=== PATIENT | male | born 1945 | race Caucasian/White ===

== ENCOUNTER 2023-11-29 22:11 | Inpatient (IN) | payer OTHER, SELFPAY ==
[2023-11-29] VITALS (8 sets, daily range): BP systolic 104–150; BP diastolic 45–75; BMI 27.2
[2023-11-29 18:21] LABS: % Basophils 0.4 % (0-2); % Eosinophils 1.8 % (0-6); % Immature Granulocytes 1.5 % (0-0.5); % Lymphocytes 12.2 % (20.5-51.1); % Monocytes 6.9 % (1.7-9.3); % Neutrophils 77.2 % (42.2-75.2); Absolute Basophils 0.1 10^3/uL (0-0.2); Absolute Eosinophils 0.2 10^3/uL (0-0.7); Absolute Immature Granulocytes 0.2 10^3/uL (0-0.05); Absolute Lymphocytes 1.4 10^3/uL (1.2-3.4); Absolute Monocytes 0.8 10^3/uL (0.1-0.6); Absolute Neutrophils 8.7 10^3/uL (1.4-6.5); Hematocrit 29.5 % (39.0-52.0); Hemoglobin 9.3 g/dL (13.0-18.0); Mean Corp Hgb Conc. 31.5 g/dL (33.0-37.0); Mean Corpuscular Hgb 26.9 pg (27.0-31.0); Mean Corpuscular Volume 85.3 fL (80.0-94.0); Mean Platelet Volume 10.1 fL (7.4-10.4); Nucleated Red Blood Cells % 0 % (-); Platelet Count 292 10^3/uL (130-400); Red Blood Cell Count 3.46 10^6/uL (4.70-6.10); Red Cell Dist. Width 14.6 % (11.5-14.5); White Blood Cell Count 11.3 10^3/uL (4.8-10.8)
--- NOTE | 2023-11-29 18:27 | ED.GENMED ---
History of Present Illness
<MARISOL Johnson - Last Filed: 11/29/23 20:57>
General
Chief Complaint: Breathing Problem
Source: patient
Exam Limitations: none
Time Seen by Provider: 11/29/23 17:54
History of Present Illness
History of Present Illness:
This is a 78 year old male that is brought in by ambulance with c/o SOB. States that today he started to just feel SOB and his felt he needed to be seen. Patient wears oxygen at 2 liters at home but states that sometimes he doesn't wear
it. Told that his pulse ox was low for EMS and they increased his O2 to 4 liters to get pulse ox up to 97%. Patient states that he felt slightly lightheaded. Denies any fever, chills, chest pain, cough, abd pain, nausea, vomiting, diarrhea,
headache, urinary burning.
Past History
<MARISOL Johnson - Last Filed: 11/29/23 20:57>
Past History
ED Past Medical History: COPD (2 liters nasal canula), IDDM, Psychiatric and Other (Ulcerative colitis, cognitive decline (mild dementia), Headaches, PNA, Renal calculus, Essential tremors, Interstitial lung disease)
ED Past Surgical History: Appendectomy, Cholecystectomy, Orthopedic (Right Rotator cuff), Urological (Lithotripsy) and Other (Cataracts)
Social History
Tobacco: Non-smoker
Alcohol: None
Personal:
Living: with family
Family History
Family History: Other (reviewed and noncontributory)
Review of Systems
<MARISOL Johnson - Last Filed: 11/29/23 20:57>
Review of Systems
All Other Systems: ROS reviewed and negative except as documented in HPI and ROS
Constitutional: Reports no symptoms; Denies fever or chills
EENT: Reports no symptoms
Respiratory: Reports trouble breathing; Denies cough
Cardiac: Reports no symptoms; Denies chest pain
ABD/GI: Reports no symptoms; Denies abdominal pain, nausea, vomiting or diarrhea
: Reports no symptoms; Denies dysuria, frequency or urgency
Musculoskeletal: Reports no symptoms
Skin: Reports no symptoms
Neurological: Reports other (Little lightheaded); Denies dizzy or headache
Psychiatric: Reports no symptoms
Phy Exam
<MARISOL Johnson - Last Filed: 11/29/23 20:57>
General Physical Exam
General Presentation: no apparent distress
General age: appears stated age
General Skin: warm and dry
General Habitus: elderly
General Mental: alert
General Hydration: appears well hydrated
ENT Exam
ENT Exam: TM's normal, pharynx normal and neck supple
Eye Exam
Eye Exam: EOMI
Cardiovascular Exam
Cardiovascular Exam: regular rate/rhythm, no edema, normal peripheral pulses and other (Murmur)
Pulmonary Exam
Pulmonary Exam: no respiratory distress, chest non tender, no rhonchi, no wheezing, no cough and other (Fine crackles 1/2 up bilaterally)
Gastrointestinal Exam
Gastrointestinal Exam: normal bowel sounds, non tender, soft, no organomegaly, no pulsatile mass and non distended
Musculoskeletal Exam
Musculoskeletal Exam: full ROM and no edema
Skin Exam
Skin Exam: normal color, warm/dry, no rash and no petechia
Psychiatric Exam
Psychiatric Exam: normal mood/affect
Scores
<MARISOL Johnson - Last Filed: 11/29/23 20:57>
Heart Failure Risk
Heart Failure Risk Score: Yes
History of Stroke or TIA: No
History of intubation for respiratory distress: No
Heart rate on ED arrival >/= 110: No
SaO2 <90% on arrival on room air: Yes
HR >/=110 during 3min walk test (or too ill to perform test): Yes
ECG has acute ischemic changes: No
Urea >/=12mmol/L (BUN 33.6mg/dL): Yes
Serum CO2>/=35mmol/L: No
Troponin I or T elevated to TN Level (0.4mg/dL): Yes
NT-proBNP >/=5,000ng/L (5,000pg/ml): No
HF Risk Score: 6
Admission Status: VERY HIGH RISK 55.3% Consider admission to hospital
<Mal Cid DO - Last Filed: 11/29/23 22:36>
Heart Failure Risk
HF Risk Score: 6
Admission Status: VERY HIGH RISK 55.3% Consider admission to hospital
Course
<MARISOL Johnson - Last Filed: 11/29/23 20:57>
Orders/Labs/Results
Orders:
Orders
11/29/23 17:34
Electrocardiogram (*1) Urgent
Reason for Study: Shortness of Breath
11/29/23 17:35
EKG- Treatment ONCE
11/29/23 17:58
Cardiac Monitoring- Treatment ONCE
IV Insert/Care/Rem.- Treatment PRN
CR Chest - 2 Views Urgent
Comment:
Reason For Exam: Shortness of breath
O2 Therapy [RESP] Urgent
Titrate/Wean O2 to maintain O2 sat greater than (%): 93
Special Instructions: TO MAINTAIN CONTINOUS PULSE OX SATS > OR = 93%
Pulse Ox/spot Check [RESP] Urgent
Quantity: 1
Special Instructions: ON ROOM AIR
11/29/23 18:15
Complete Blood Count/With Diff Urgent
Comprehensive Metabolic Panel Urgent
11/29/23 18:31
NT-proBNP Urgent
Troponin I Urgent
11/29/23 20:50
Furosemide [Lasix] 40 mg IV NOW STA
11/29/23 20:55
EKG- Treatment ONCE
11/29/23 21:20
Urinalysis Reflex To Culture Routine
11/29/23 21:24
Admit/Transfer Patient As Directed
Co-Sign Provider:
Level of Care: Inpatient admission
Assign to:: Telemetry
Physician / Group: irma
Diagnosis: acute on chronic hypoxic respiratory failure
Reason for Telemetry: Subacute Heart Failure
Date to Stop Telemetry: 12/01/23
Time to Stop Telemetry: 11:00
Reason for Hospitalization: acute on hronic respiratory failure
Expected length of stay greater than two midnights?: Yes
ELOS- Estimated Length of Stay in days: 3
I certify the patient meets the requirements for IP care: Yes
11/29/23 21:25
Code Status As Directed
Resuscitation Status: Full Code
11/29/23 21:30
Electrocardiogram (*1) Urgent
Reason for Study: Shortness of Breath
Other Reason for Exam: Repeat with Troponin
11/29/23 21:34
Dexamethasone Sod Phosphate [Decadron] 4 mg IV NOW STA
11/29/23 21:55
Troponin I Urgent
12/01/23 11:00
DC Protocol for Telemetry ONCE
Abnormal Lab Results
11/29/23 11/29/23 11/29/23
18:15 18:31 21:55
WBC 11.3 H 10^3/uL
(4.8-10.8)
RBC 3.46 L 10^6/uL
(4.70-6.10)
Hgb 9.3 L g/dL
(13.0-18.0)
Hct 29.5 L %
(39.0-52.0)
MCH 26.9 L pg
(27.0-31.0)
MCHC 31.5 L g/dL
(33.0-37.0)
RDW 14.6 H %
(11.5-14.5)
Abs Immat Gran (auto) 0.2 H 10^3/uL
(0-0.05)
Absolute Neuts (auto) 8.7 H 10^3/uL
(1.4-6.5)
Absolute Monos (auto) 0.8 H 10^3/uL
(0.1-0.6)
Immature Gran % 1.5 H %
(0-0.5)
Neutrophils % 77.2 H %
(42.2-75.2)
Lymphocytes % 12.2 L %
(20.5-51.1)
Chloride 97 L mmol/L
(98-107)
BUN 35 H mg/dl
(9-20)
Glucose 188 H mg/dl
(70-99)
Troponin I 0.069 H* ng/ml 0.203 H* D ng/ml
11/29/23 18:15
11/29/23 18:15
WBC very slightly elevated. H/H low. chloride low. Glucose nonfasting. Elevated Troponin 0.069, Pro-BNP 410
Vital Signs
Initial and Last Documented VS:
Initial Vital Signs
Pulse Ox
89
11/29/23 17:34
Last Documented Vital Signs
Temp Pulse Resp BP Pulse Ox
99.4 F 86 25 127/52 97
11/29/23 17:42 11/29/23 20:30 11/29/23 20:30 11/29/23 20:00 11/29/23 20:30
<Mal Cid DO - Last Filed: 11/29/23 22:36>
Orders/Labs/Results
Orders:
Orders
11/29/23 17:34
Electrocardiogram (*1) Urgent
Reason for Study: Shortness of Breath
11/29/23 17:35
EKG- Treatment ONCE
11/29/23 17:58
Cardiac Monitoring- Treatment ONCE
IV Insert/Care/Rem.- Treatment PRN
CR Chest - 2 Views Urgent
Comment:
Reason For Exam: Shortness of breath
O2 Therapy [RESP] Urgent
Titrate/Wean O2 to maintain O2 sat greater than (%): 93
Special Instructions: TO MAINTAIN CONTINOUS PULSE OX SATS > OR = 93%
Pulse Ox/spot Check [RESP] Urgent
Quantity: 1
Special Instructions: ON ROOM AIR
11/29/23 18:15
Complete Blood Count/With Diff Urgent
Comprehensive Metabolic Panel Urgent
11/29/23 18:31
NT-proBNP Urgent
Troponin I Urgent
11/29/23 20:50
Furosemide [Lasix] 40 mg IV NOW STA
11/29/23 20:55
EKG- Treatment ONCE
11/29/23 21:20
Urinalysis Reflex To Culture Routine
11/29/23 21:24
Admit/Transfer Patient As Directed
Co-Sign Provider:
Level of Care: Inpatient admission
Assign to:: Telemetry
Physician / Group: irma
Diagnosis: acute on chronic hypoxic respiratory failure
Reason for Telemetry: Subacute Heart Failure
Date to Stop Telemetry: 12/01/23
Time to Stop Telemetry: 11:00
Reason for Hospitalization: acute on hronic respiratory failure
Expected length of stay greater than two midnights?: Yes
ELOS- Estimated Length of Stay in days: 3
I certify the patient meets the requirements for IP care: Yes
11/29/23 21:25
Code Status As Directed
Resuscitation Status: Full Code
11/29/23 21:30
Electrocardiogram (*1) Urgent
Reason for Study: Shortness of Breath
Other Reason for Exam: Repeat with Troponin
11/29/23 21:34
Dexamethasone Sod Phosphate [Decadron] 4 mg IV NOW STA
11/29/23 21:55
Troponin I Urgent
12/01/23 11:00
DC Protocol for Telemetry ONCE
Abnormal Lab Results
11/29/23 11/29/23 11/29/23
18:15 18:31 21:55
WBC 11.3 H 10^3/uL
(4.8-10.8)
RBC 3.46 L 10^6/uL
(4.70-6.10)
Hgb 9.3 L g/dL
(13.0-18.0)
Hct 29.5 L %
(39.0-52.0)
MCH 26.9 L pg
(27.0-31.0)
MCHC 31.5 L g/dL
(33.0-37.0)
RDW 14.6 H %
(11.5-14.5)
Abs Immat Gran (auto) 0.2 H 10^3/uL
(0-0.05)
Absolute Neuts (auto) 8.7 H 10^3/uL
(1.4-6.5)
Absolute Monos (auto) 0.8 H 10^3/uL
(0.1-0.6)
Immature Gran % 1.5 H %
(0-0.5)
Neutrophils % 77.2 H %
(42.2-75.2)
Lymphocytes % 12.2 L %
(20.5-51.1)
Chloride 97 L mmol/L
(98-107)
BUN 35 H mg/dl
(9-20)
Glucose 188 H mg/dl
(70-99)
Troponin I 0.069 H* ng/ml 0.203 H* D ng/ml
11/29/23 18:15
11/29/23 18:15
Vital Signs
Initial and Last Documented VS:
Initial Vital Signs
Pulse Ox
89
11/29/23 17:34
Last Documented Vital Signs
Temp Pulse Resp BP Pulse Ox
99.4 F 86 25 127/52 97
11/29/23 17:42 11/29/23 20:30 11/29/23 20:30 11/29/23 20:00 11/29/23 20:30
<MARISOL Johnson - Last Filed: 11/29/23 20:57>
MDM/Problems Addressed
Differential Diagnosis Includes:
CHF, PNA,
MDM/Problems Addressed:
This is a 78 year old male that comes in with c/o SOB. States that this started today and he was a little lightheaded.
Will check labs, Chest x-ray.
Back into see patient and . Explained that he has CHF and will be admitted. IV Lasix ordered. Hospitalist notified.
Chronic conditions affecting care: COPD
Acute Exacerbation and/or Progression of Chronic Illness: COPD
<MARISOL Johnson - Last Filed: 11/29/23 20:57>
*Radiology
Radiology exam reviewed: radiology read reviewed (Chest-Mild CHF)
*Pulse Oximetry
Patient hypoxic: yes
*EKG
Interpreted by ED Provider?: Yes
Heart Rate: 91
Rate: normal
Rhythm: sinus
Jackson: left axis deviation
Interval: normal interval
QRS Pattern: normal QRS
Ischemia: non-specific ST changes (aVL, V4, V5 ,)
*System Support Technician Interpretation
Rate: normal
Heart Rate: 92
Rhythm: sinus
*Critical Care Note
Total Time (30-74mins, 75-104mins- exclusive of procedures): Not Applicable
ED Attending Note
<MARISOL Johnson - Last Filed: 11/29/23 20:57>
-
Portions of this chart may have been created with voice recognition software.� Occasional wrong word or��sound alike� substitutions may have occurred due to the inherent limitations of voice recognition software.
Discharge Plan
Departure
Patient Disposition: Admit
Date of Disposition: 11/29/23
Time of Disposition: 20:55
Admit to: Telemetry
Presentation/result/management discussed w/ accepting MD/DO: Hospitalist
Patient with high blood pressure during this ER visit?: Yes
Condition: Good
Covid-19: Not Applicable
Discharge Problem:
SOB (shortness of breath), CHF (congestive heart failure)
Interventions
Interventions:
*Risk Screen - Suicide Last Done: 11/29/23 17:43
*General Assessment Last Done: 11/29/23 17:43
*Neglect/Abuse Screening Last Done: 11/29/23 17:44
*ED COVID-19 Vaccine History Last Done: 11/29/23 17:43
ED- Cardiac Assessment Last Done: 11/29/23 17:44
ED- Pulmonary Assessment Last Done: 11/29/23 17:43
[2023-11-29 18:40] LABS: ALT (SGPT) 15 U/L (0-50); AST (SGOT) 24 U/L (17-59); Albumin 3.7 g/dl (3.5-5.0); Alkaline Phosphatase 87 U/L (38-126); Blood Urea Nitrogen 35 mg/dl (9-20); Calcium 9.5 mg/dl (8.4-10.2); Carbon Dioxide 28 mmol/L (22-30); Chloride 97 mmol/L (98-107); Estimated Creatinine Clearance 47 ml/min; Glucose 188 mg/dl (70-99); Potassium 4.7 mmol/L (3.5-5.1); Sodium 135 mmol/L (135-145); Total Bilirubin 0.4 mg/dl (0.2-1.3); Total Protein 6.4 g/dl (6.3-8.2); eGFR > 60.00
[2023-11-29 18:59] LABS: NT-proBNP 410 pg/ml; Troponin I 0.069 ng/ml
--- NOTE | 2023-11-29 21:01 | HPS.HSE ---
Addendum entered and electronically signed by Jos Fair DO 11/29/23 22:22:
Patient seen and examined independently. Agree with findings and plan as set forth by MARISOL Dupont.
Patient is a 78y M with PMH significant for pulmonary fibrosis and chronic hypoxemic respiratory failure who presents to ED complaining of mild SOB and lightheadedness since this AM. Patient denies any cough, fever / chills, chest pain, etc. He
typically wears O2 at 2 lpm at home and had initial hypoxemia here in the ED at 89% on this 2 lpm. At present, he is 96% on 3 lpm of supplemental O2.
Ass:
Acute on Chronic Hypoxemic Respiratory Failure
Idiopathic Pulmonary Fibrosis
COPD without Acute Exacerbation
Pulmonary Hypertension
DM-II
Postural Hypotension
Senile Dementia
Plan:
Admit for further evaluation and treatment.
Symptoms seem likely due to flare / progression of IPF.
No evidence of volume overload, CHF, etc.
Hold further diuretic therapy.
Trial of IV steroids and follow for improvement in dyspnea, hypoxemia.
Pulmonary evaluation for additional recommendations.
Continue other usual home med regimen.
Follow orthostatic signs (note prior history of postural hypotension).
PT / OT evaluations.
Original Note:
Family Physician
-
Family Physician: Raj Borrego
Chief Complaint
-
sob
History of Present Illness
78 year old wit PMH Fot COPD< chronic o2 dependant at home, IDDM, ulcerative colitis, essential tremors, ILD presented to us with worsening sob, little worse with activity. denied weight gain. denied LE edema. denied fever, chills, chest pain.
denied runny nose, congestion, cough. denied abdominal pain, n,v,d. denied dysuria or hematuria. patient complained of dizziness. denied syncopal episode.
chest x ray with mild CHF. BNP 410. received iv Lasix in ER. admitting for further management.
Medical History
Past Medical History
Past Medical History: Reports Other
Additional Past Medical History:
HLD
depression
gastroparesis
type 2 DM
dementia
ILD
postural hypotension
Pulmonary HTN
pulmonary fibrosis
ulcerative colitis
essential tremor
Past Surgical History: Reports Other
Additional Past Surgical History:
appendectomy
cholecystectomy
Social History
Tobacco: Non-smoker
Alcohol: None
Drug: None
Personal:
Living: With Family
Employment: Retired
Family History
Family History: Not pertinent
Allergies / Home Medications
Allergies reflects when Allergies were last updated in [facility]
Home Medications with original date entered in [facility]
Allergy/Medication List:
Allergies
Allergy/AdvReac Type Severity Reaction Status Date / Time
Sulfa (Sulfonamide Allergy CONFUSION Verified 11/29/23 17:38
Antibiotics)
sulfamethoxazole Allergy CONFUSION Verified 11/29/23 17:38
trimethoprim Allergy Unknown Verified 11/29/23 17:38
Home Medications
aspirin 81 mg tablet,delayed release 81 mg PO DAILY Blood clot prevention/tx 07/06/21
atorvastatin 40 mg tablet 40 mg PO DAILY High cholesterol 07/06/21
cetirizine 10 mg tablet 10 mg PO DAILYPRN PRN allergies 07/06/21
albuterol sulfate 90 mcg/actuation aerosol inhaler 2 puff inhalation R Q4HPRN PRN SOB 06/23/23
diphenhydramine HCl 25 mg capsule (ZzzQuil) 25 mg PO HSPRN PRN INSOMNIA 06/23/23
duloxetine 60 mg capsule,delayed release (Cymbalta) 60 mg PO DAILY Mental Health/Anxiety 06/23/23
insulin aspart U-100 100 unit/mL (3 mL) subcutaneous pen (Novolog FlexPen U-100 Insulin aspart) 31 sliding scale dose SC AC Diabetes 06/24/23
memantine 10 mg tablet 10 mg PO BID Neurological Condition 06/24/23
budesonide 0.5 mg/2 mL suspension for nebulization 0.5 mg (2 mL) inhalation R BID #60 mL 06/26/23
acetaminophen 500 mg tablet (Tylenol Extra Strength) 1,000 mg PO Q6HPRN PRN mild pain 11/29/23
insulin NPH isoph U-100 human 100 unit/mL (3 mL) subcutaneous pen (Novolin N FlexPen) 27 unit SC HS 11/29/23
insulin NPH isoph U-100 human 100 unit/mL (3 mL) subcutaneous pen (Novolin N FlexPen) 40 unit SC DAILY 11/29/23
omeprazole 20 mg tablet,delayed release 20 mg PO DAILY 11/29/23
Review of Systems
-
Constitutional: Reports No Symptoms
EENT: Reports No Symptoms
Respiratory: Reports Trouble Breathing
Cardiac: Reports No Symptoms
Abdomen/GI: Reports No Symptoms
: Reports No Symptoms
Musculoskeletal: Reports No Symptoms
Skin: Reports No Symptoms
Neurological: Reports No Symptoms
Endocrine: Reports No Symptoms
Hematologic/Lymphatic: Reports No Symptoms
Psych: Reports No Symptoms
Physical Exam
Vital Signs
Vital Signs
Temp Pulse Resp BP Pulse Ox
99.4 F 86 25 127/52 97
11/29/23 17:42 11/29/23 20:30 11/29/23 20:30 11/29/23 20:00 11/29/23 20:30
Physical Exam
General: Well Developed, Well Nourished and No Apparent Distress
HEENT: NormoCephalic, Moist mucous membranes and Atraumatic
Respiratory: Rales
Cardiac: S1/S2 and Regular Rhythm; No Murmur or Rub
GI: Soft, Non Tender, Non Distended and Normal Bowel Sounds; No Organomegaly
Rectal: Deferred by Provider
Musculoskeletal: No Clubbing, No Cyanosis and No Edema
Skin: No Rash
Neuro: Nonfocal/grossly intact
Psych: Calm
Laboratory Results
-
11/29/23 18:15
11/29/23 18:15
Laboratory Results
Total Bilirubin 0.4 mg/dl (0.2-1.3) 11/29/23 18:15
AST 24 U/L (17-59) 11/29/23 18:15
ALT 15 U/L (0-50) 11/29/23 18:15
Alkaline Phosphatase 87 U/L (38-126) 11/29/23 18:15
Troponin I 0.069 ng/ml H* 11/29/23 18:31
Data Reviewed
-
Diagnostic Radiology: Report Reviewed by me
Lab Data: Labs Reviewed by me
Impression/Plan
-
#acute on chronic respiratory failure/sob multifactorial
-continue supplemental oxygen to keep sat >92
-wean as tolerated
-patient requiring 3l of oxygen
likely CHF exacerbation
-BNP 410
-chest x ray with mild CHF
-received iv Lasix in ER
-strict I&O
-daily weight
-ctm
#likely exacerbation of pulmonary fibrosis/ILD
-albuterol continued
-budesonide continued
-Decadron 4mg iv every 12 hours
-pulmonary consulted
#dizzy unclear cause
-obtain orthostatics.
#leukocytosis likely stress reaction
-wbc 11.3
-obtain UA
-denied runny nose, congestion, cough
#anemia of chronic disease
-hgb stable at 9.3
-no active bleeding
-ctm
#elevated trop likely non ischemic myocardial injury
-trop 0.069
-trend trop
-denied chest pain
-EKG with NSR
#HX Generalized Anxiety Disorder
#HX mild dementia
- cont.� Duloxetine
- cont. ASSISTANT MANAGER OF OPERATIONS Memantine
#GERD
-PPI continued
#Hyperlipidemia
- cont . Lipitor
IDDM
-Continue Novolin N
- add ISS low
-CHO diet
DVT proph: LMWH
Full code
[2023-11-29 22:27] LABS: Troponin I 0.203 ng/ml
[2023-11-29] MEDS: DECADRON 4 MG IV (22:54)
[2023-11-29] MEDS: LASIX 40 MG IV (23:05)
[2023-11-30] VITALS (8 sets, daily range): BP systolic 106–147; BP diastolic 58–79; BMI 26.9
[2023-11-30 01:16] LABS: Glucose - Point of Care 257 mg/dl (70-99)
[2023-11-30] MEDS: HUMULIN N KWIKPEN 18 UNITS SC ×2 (01:17→22:19)
--- NOTE | 2023-11-30 01:34 | PTCARENOTE ---
Pt admitted to IVU, HR SR. 3L NC. pt belongings w/ pt. Pt oriented to unit. Pt extremely forgetful, bed alarm placed. Fall Risk.
[2023-11-30 02:27] LABS: Hematocrit 28.5 % (39.0-52.0); Hemoglobin 9.5 g/dL (13.0-18.0); Mean Corp Hgb Conc. 33.3 g/dL (33.0-37.0); Mean Corpuscular Hgb 27.1 pg (27.0-31.0); Mean Corpuscular Volume 81.2 fL (80.0-94.0); Mean Platelet Volume 9.8 fL (7.4-10.4); Platelet Count 304 10^3/uL (130-400); Red Blood Cell Count 3.51 10^6/uL (4.70-6.10); Red Cell Dist. Width 14.8 % (11.5-14.5); White Blood Cell Count 13.1 10^3/uL (4.8-10.8)
[2023-11-30 02:59] LABS: ALT (SGPT) 16 U/L (0-50); AST (SGOT) 24 U/L (17-59); Alkaline Phosphatase 103 U/L (38-126); Blood Urea Nitrogen 37 mg/dl (9-20); Calcium 9.6 mg/dl (8.4-10.2); Carbon Dioxide 26 mmol/L (22-30); Chloride 94 mmol/L (98-107); Direct Bilirubin 0.2 mg/dl (0.0-0.4); Estimated Creatinine Clearance 46 ml/min; Glucose 261 mg/dl (70-99); HDL Cholesterol 31 mg/dl; LDL Cholesterol, Calculated 57 mg/dl; Magnesium 1.6 mg/dl (1.6-2.3); Potassium 5.1 mmol/L (3.5-5.1); Sodium 133 mmol/L (135-145); Total Bilirubin 0.5 mg/dl (0.2-1.3); Total Cholesterol 116 mg/dl (50-199); Total Protein 6.8 g/dl (6.3-8.2); Triglyceride 144 mg/dl (10-149); Very Low Density Lipoprotein 28 mg/dl (0-30); eGFR > 60.00
[2023-11-30 03:30] LABS: TSH Reflex To Free T4 1.68 uIU/ml (0.47-4.68)
[2023-11-30 03:31] LABS: Troponin I 0.212 ng/ml
[2023-11-30] MEDS: PULMICORT 0.5 MG INH ×2 (07:41→20:29)
--- NOTE | 2023-11-30 08:44 | CON.PUL ---
Consultation
Consultation Request
Date/Time Consultation Requested: 11/29
Date/Time Consultation Performed: 11/29
Reason for Consultation: hypoxia
Medical History
-
History of Present Illness:
History obtained from the chart, outpatient records, history from patient and also history from by phone. Patient is a 78-year-old male with chronic dementia, chronic hypoxia, chronic interstitial lung disease. According to his , they
just gone to the [facility] in 8 corn beef sandwich and fries for lunch. Later in the day as he was walking the parking lot, he stated he did not feel well. His pulse oximeter was checked and it was 65% on 2 L. He was brought back home, he had a
neighbor who is a nurse who checked on him. Saturation slowly increased up in the 70s. Throughout this, patient does not appear to be in distress but did not feel well. For this reason he was brought to [facility]. Unfortunately cannot
confirm whether he was lightheaded, having chest pain. He was complaining of some foot pain. Upon arrival to [facility], temperature 99.4, pulse 86, breathing at 25, blood pressure 127/52, 89%. Per ED records state patient was also
complaining of lightheadedness. Patient was given IV Lasix. EKG with nonspecific changes. We are asked to comment on pulmonary process
Presently, he denies chest pain, lightheadedness, abdominal pain, nausea. He has a mild cough.
.
PMH: Chronic hypoxia on home oxygen, interstitial lung disease, pulm hypertension, history of ulcerative colitis, gastroparesis, chronic aspiration syndrome, restrictive lung disease, nephrolithiasis, type 2 diabetes. History of appendectomy,
cholecystectomy.
Past Medical History
Past Medical History: None (See above)
Past Surgical History: None (See above)
Social History
Tobacco: Non-smoker
Alcohol: None
Drug: None
Personal:
Living: With Family
Employment: Retired
Family History
Family History: Other (Father , mother from gastric cancer. 1 brother with a pacemaker, atrial fibrillation. 2 children healthy)
Allergies / Home Medications
Allergies
Allergy/AdvReac Type Severity Reaction Status Date / Time
Sulfa (Sulfonamide Allergy CONFUSION Verified 11/29/23 17:38
Antibiotics)
sulfamethoxazole Allergy CONFUSION Verified 11/29/23 17:38
trimethoprim Allergy Unknown Verified 11/29/23 17:38
Home Medications
�Medication �Instructions �Recorded �Confirmed �Last Taken �Type
aspirin 81 mg tablet,delayed 81 mg PO DAILY Blood clot 07/06/21 11/29/23 11/29/23 History
release prevention/tx
atorvastatin 40 mg tablet 40 mg PO DAILY High cholesterol 07/06/21 11/29/23 11/29/23 History
cetirizine 10 mg tablet 10 mg PO DAILYPRN PRN allergies 07/06/21 11/29/23 1 Week Ago History
~11/22/23
albuterol sulfate 90 mcg/actuation 2 puff inhalation R Q4HPRN PRN SOB 06/23/23 11/29/23 Unknown History
aerosol inhaler
diphenhydramine HCl 25 mg capsule 25 mg PO HSPRN PRN INSOMNIA 06/23/23 11/29/23 11/27/23 History
(ZzzQuil)
duloxetine 60 mg capsule,delayed 60 mg PO DAILY Mental 06/23/23 11/29/23 11/29/23 History
release (Cymbalta) Health/Anxiety
insulin aspart U-100 100 unit/mL 31 sliding scale dose SC AC 06/24/23 11/29/23 11/29/23 History
(3 mL) subcutaneous pen (Novolog Diabetes
FlexPen U-100 Insulin aspart)
memantine 10 mg tablet 10 mg PO BID Neurological Condition 06/24/23 11/29/23 11/29/23 History
budesonide 0.5 mg/2 mL suspension 0.5 mg (2 mL) inhalation R BID #60 06/26/23 11/29/23 11/29/23 Rx
for nebulization mL
acetaminophen 500 mg tablet 1,000 mg PO Q6HPRN PRN mild pain 11/29/23 11/29/23 11/29/23 History
(Tylenol Extra Strength)
insulin NPH isoph U-100 human 100 27 unit SC HS Diabetes 11/29/23 11/29/23 11/28/23 History
unit/mL (3 mL) subcutaneous pen
(Novolin N FlexPen)
insulin NPH isoph U-100 human 100 40 unit SC DAILY Diabetes 11/29/23 11/29/23 11/29/23 History
unit/mL (3 mL) subcutaneous pen
(Novolin N FlexPen)
omeprazole 20 mg tablet,delayed 20 mg PO DAILY Gastrointestinal 11/29/23 11/29/23 11/29/23 History
release Issue
Review of Systems
-
History Source: Patient and Family
All other systems: Negative unless noted
Vitals / Labs / Diagnostic Testing
Vital Signs
Temp Pulse Resp BP Pulse Ox
97.9 F 73 16 130/74 95
11/30/23 07:34 11/30/23 07:45 11/30/23 07:42 11/30/23 07:38 11/30/23 07:34
Lab Data
11/30/23 02:12
11/30/23 02:10
Diagnostic Testing:
Physical Exam
-
HEENT: Normocephalic and Anicteric
Cardiovascular: S1/S2, Regular Rhythm, Murmur (2/6 systolic murmur) and Calf Tenderness (Questionable right calf tenderness intermittent)
Respiratory: Clear, Wheeze (n), Rales (Scattered crackles), Rhonchi (n) and Non-Labored Respirations
GI: Soft, Non Distended and Non Tender
Neurology: Awake and Alert
Skin: Good Color and Other (No skin rash)
General: Comfortable
Assessment
-
78-year-old man with history of interstitial lung disease, chronic hypoxia, chronic dementia well-known to myself presents with general malaise, lightheadedness. Saturation found to be in the 60s on 2 L. Upon arrival to [facility], 89%.
Chest x-ray initially read as heart failure, patient given Lasix therapy and admitted for further management. We are asked to asked to comment on pulmonary process 11/30/2023
Acute hypoxic respiratory insufficiency
60% in the field, 89% upon arrival to the ED
Chronic hypoxia on home oxygen, 2 L
Bilateral interstitial changes
Heart failure versus chronic interstitial changes
Cannot rule out left upper lobe pneumonia (my review)
Elevated troponin
Aspiration syndrome, aspiration risk
Esophageal dysmotility in the past
Mild leukocytosis
Pulmonary hypertension, PA systolic pressure 39 in the past
Conditions present prior admission:
Chronic interstitial disease
No honeycomb changes per prior CT chest
Patient refused antifibrotic therapy in the past, preferred conservative management
FVC 40%
History of gastroparesis
Diabetes
Hypertension
Anxiety
Hypercholesterolemia
History of ulcerative colitis, in remission
Cognitive dysfunction, dementia
Follows neurology in the past ([facility])
Plan/recommendations
At this time, patient with complex medical history, complex decision making process
Salient features include general malaise, documented worsening oxygen requirement, worsening left upper lobe infiltrate per my review on chest x-ray, mildly elevated troponin
Patient is complaining of foot pain intermittently but patient not a good historian
Mild intermittent calf tenderness on exam involving the right leg
Moving forward
Despite patient without symptoms, appears to be back to baseline, not convinced this is heart failure
Worried about aspiration pneumonia left upper lobe, versus thromboembolic process
Doubt progressive interstitial disease. Patient without clinical changes in the past
Check lower extremity Dopplers bilaterally
Depending on findings, may need CT angiogram
Would empirically place on antibiotics for possible left upper lobe pneumonia
Check VSE
Repeat echocardiogram. Doubt cardiac process, cardiology has been consulted
Continue budesonide
Discontinue IV steroids
DVT prophylaxis: Lovenox
GI prophylaxis: Pantoprazole
Reviewed at length with patient, by phone
Reviewed with primary service, cardiology
Also addressed CODE STATUS with . She states that patient would not want ventilator but she will discuss this with him later today
For conversations in the office and myself, patient would not want aggressive management, life support, CPR but will await discussion with and
Present full code
Will follow
[2023-11-30] MEDS: PROTONIX 40 MG PO (09:09)
[2023-11-30] MEDS: CYMBALTA DELAYED RELEASE 60 MG PO (09:09)
[2023-11-30] MEDS: LIPITOR 40 MG PO (09:09)
[2023-11-30] MEDS: ASPIR LOW (ENTERIC COATED) 81 MG PO (09:10)
[2023-11-30] MEDS: NAMENDA 10 MG PO ×2 (09:10→20:05)
--- NOTE | 2023-11-30 09:18 | W.PN.HOSP.TC ---
Today's Communication/Plan
-
possible d/c today if cleared by pulm/cards
Assessment / Plan
Assessment / Plan
Pt is a 78 year old male
acute on chronic respiratory failure/sob--pt admits to not wearing his O2 as he should--has IPF, not clear he is in failure--pro BNP 410 without signs of overt failure--troponin elevation is likely nonischemic myocardial injury--cont O2--await cards
input--possible d/c?--received iv Lasix in ER
-strict I&O--daily weight--cont albuterol, budesonide, decadron--await pulm input
dizzy unclear cause--obtain orthostatics.
leukocytosis likely stress reaction--wbc 11.3--obtain UA--denied runny nose, congestion, cough
anemia of chronic disease--hgb stable at 9.3-no active bleeding
HX Generalized Anxiety Disorder/HX mild dementia- cont.� Duloxetine- cont. DIGITAL SALES MANAGER Memantine
GERD-PPI continued
Hyperlipidemia- cont . Lipitor
IDDM-Continue Novolin N- add ISS low-CHO diet
DVT proph: LMWH
Full code
Anticipated Discharge: Today
Subjective/Interval History
-
Date of Service: November 30, 2023
pt feels back to baseline--by his own admission, he doesn't wear his O2 as he should
Objective Data
-
Labs:
Laboratory Results
11/30/23 11/30/23
02:10 02:12
WBC 13.1 H
Hgb 9.5 L
Hct 28.5 L
Plt Count 304
Sodium 133 L
Potassium 5.1
Chloride 94 L
Carbon Dioxide 26
BUN 37 H
Creatinine 1.2
Glucose 261 H
Calcium 9.6
Total Bilirubin 0.5
AST 24
ALT 16
Alkaline Phosphatase 103
Vital Signs:
max temp for 24 hours
11/29/23
17:42
Temp 99.4 F
Vital Signs
Temp Pulse Resp BP Pulse Ox
97.9 F 73 16 130/74 95
11/30/23 07:34 11/30/23 07:45 11/30/23 07:42 11/30/23 07:38 11/30/23 07:34
I&O
11/29/23 11/30/23 12/01/23
06:59 06:59 06:59
Intake Total 240 / 240
Output Total 250 / 250
Balance -10 / -10
Review of Systems
-
All other systems: Reviewed and negative
Physical Exam
-
General: Well Developed, Well Nourished and No Apparent Distress
HEENT: Normocephalic, Atraumatic and Oxygen
Respiratory: Crackles (coarse crackles throughout)
Cardiac: Regular Rhythm and S1/S2; Negative Murmur
GI: Soft, Nontender, Nondistended and Normal Bowel Sounds
Musculoskeletal: No Clubbing, No Cyanosis and No Edema
Neuro: Awake and Alert
[2023-11-30 09:36] LABS: Troponin I 0.166 ng/ml
[2023-11-30 09:57] LABS: Glucose - Point of Care 249 mg/dl (70-99)
[2023-11-30 10:18] LABS: Glycohemoglobin (HgbA1c) 8.6 % (4.0-5.6)
--- NOTE | 2023-11-30 10:24 | CON.CAR ---
Addendum entered and electronically signed by Dav Boo MD 11/30/23 12:20:
I saw and examined the patient.
The RADIO TESTER's note was reviewed and I agree with the note.
Comment: 77 yo male with pulmonary fibrosis/interstitial lung disease on chronic oxygen, dyslipidemia, IDDM, hypertension and mild MS, mild , who presents the the ER with c/o acute SOB that began yesterday while sitting. He admits to wearing 2 L
nasal cannula oxygen at home. His weight is stable and less than his OV weight, his SOB does not appear to be cardiac in origin.
- Elevated troponin likely 2/2 nonischemic myocardial injury and CP free
- HF not in acute exacerbation
We will sign off please call with questions/concerns.
Original Note:
Consultation
Consultation Request
Date/Time Consultation Requested: 11/29/23 10:55p
Date/Time Consultation Performed: 11/30/23 9a
Requesting Provider: MARISOL Dupont
Performing Provider: MARISOL Razo for Dr. Boo
Reason for Consultation: SOB/CHF
Medical History
-
Chief Complaint: SOB
History of Present Illness:
Mr. Harmon is a 77 yo male with pulmonary fibrosis/interstitial lung disease on chronic oxygen, dyslipidemia, IDDM, hypertension and mild MS, mild , who presents the the ER with c/o acute SOB that began yesterday while sitting. He admits to
wearing 2 L nasal cannula oxygen at home. On arrival in the ER he was hypoxemic with pulse ox 89% on room air, improved to 96% on 3 L nasal cannula. He isadmitted to the hospitalist service and we are consulted for shortness of breath. Chest
x-ray report read as mild CHF. He reports feeling improved on oxygen currently. He denies any chest pain or exertional anginal symptoms.
Past Medical History
Past Medical History: Other (as above)
Past Surgical History: Other (as above)
Social History
Tobacco: Non-Smoker
Alcohol: None
Personal:
Living: With Family
Employment: Retired
Family History
Family History: Reviewed & Not Pertinent
Allergies / Home Medications
Allergy/AdvReac Type Severity Reaction Status Date / Time
Sulfa (Sulfonamide Allergy CONFUSION Verified 11/29/23 17:38
Antibiotics)
sulfamethoxazole Allergy CONFUSION Verified 11/29/23 17:38
trimethoprim Allergy Unknown Verified 11/29/23 17:38
�Medication �Instructions �Recorded �Confirmed �Type
aspirin 81 mg tablet,delayed 81 mg PO DAILY Blood clot 07/06/21 11/29/23 History
release prevention/tx
atorvastatin 40 mg tablet 40 mg PO DAILY High cholesterol 07/06/21 11/29/23 History
cetirizine 10 mg tablet 10 mg PO DAILYPRN PRN allergies 07/06/21 11/29/23 History
albuterol sulfate 90 mcg/actuation 2 puff inhalation R Q4HPRN PRN SOB 06/23/23 11/29/23 History
aerosol inhaler
diphenhydramine HCl 25 mg capsule 25 mg PO HSPRN PRN INSOMNIA 06/23/23 11/29/23 History
(ZzzQuil)
duloxetine 60 mg capsule,delayed 60 mg PO DAILY Mental 06/23/23 11/29/23 History
release (Cymbalta) Health/Anxiety
insulin aspart U-100 100 unit/mL 31 sliding scale dose SC AC 06/24/23 11/29/23 History
(3 mL) subcutaneous pen (Novolog Diabetes
FlexPen U-100 Insulin aspart)
memantine 10 mg tablet 10 mg PO BID Neurological Condition 06/24/23 11/29/23 History
budesonide 0.5 mg/2 mL suspension 0.5 mg (2 mL) inhalation R BID #60 06/26/23 11/29/23 Rx
for nebulization mL
acetaminophen 500 mg tablet 1,000 mg PO Q6HPRN PRN mild pain 11/29/23 11/29/23 History
(Tylenol Extra Strength)
insulin NPH isoph U-100 human 100 27 unit SC HS Diabetes 11/29/23 11/29/23 History
unit/mL (3 mL) subcutaneous pen
(Novolin N FlexPen)
insulin NPH isoph U-100 human 100 40 unit SC DAILY Diabetes 11/29/23 11/29/23 History
unit/mL (3 mL) subcutaneous pen
(Novolin N FlexPen)
omeprazole 20 mg tablet,delayed 20 mg PO DAILY Gastrointestinal 11/29/23 11/29/23 History
release Issue
Review of Systems
-
History Source: Patient
All other systems: Negative unless noted
Physical Exam
Vital Signs
Temp Pulse Resp BP Pulse Ox
97.9 F 73 16 130/74 95
11/30/23 07:34 11/30/23 07:45 11/30/23 07:42 11/30/23 07:38 11/30/23 07:34
Lab Results
11/30/23 02:12
11/30/23 02:10
Troponin I 0.166 ng/ml H* 11/30/23 08:55
Wio-L-Couvrcqaodj Pept 410 pg/ml 11/29/23 18:31
Physical Exam
General: Well Developed, Well Nourished and No Apparent Distress
HEENT: Normocephalic, Anicteric and Moist Mucous Membranes
Respiratory: Crackles (bibasilar L>R) and Non Labored Respirations
Cardiac: S1/S2 and Regular Rhythm
Breast: Deferred by me
GI: Soft, Non Tender, Non Distended and Normal Bowel Sounds
Rectal: Deferred by Provider
Genito-urinary: Clear Urine
Musculoskeletal: No Clubbing, No Cyanosis and No Edema
Skin: Warm and Dry
Neuro: AO x 3
Psych: Calm
Impression / Plan
-
Shortness of breath - acute.
-Feels improved on 2 L nasal cannula oxygen.
-He did receive IV Lasix 40 mg in the ER upon arrival. Currently he does not appear volume overloaded.
-He is also receiving IV steroids and antibiotics per pulmonary.
-Echo 07/11/2022: Normal LV function with EF 65%, mild cLVH, mild MS, aortic sclerosis without stenosis, no significant change from June 2021 echo.
Pulmonary fibrosis/interstitial lung disease - worsened SOB.
-Management per pulmonary with IV steroids, inhalers and antibiotics.
-Continue 2 L nasal cannula oxygen.
Dyslipidemia � stable on Lipitor, continue.
Mitral stenosis - mild on echo 07/2022.
-Stable, continue to monitor.
Acute nonischemic myocardial injury - in the setting of acute shortness of breath.
-Troponin trend 0.069, 0.203, 0.212, 0.166.
-He denies any chest pain or exertional anginal symptoms.
-Lexiscan nuclear stress test 09/2022: ECG is negative for ischemia, normal perfusion imaging without evidence of ischemia or infarction.
Data Reviewed
-
Radiology: Report Reviewed by me (CXR: Mild CHF)
Medical Tests (Nuc Med, Echo etc): Report Reviewed by me (Echo 07/11/2022: Normal LV function with EF 65%, mild cLVH, mild MS, aortic sclerosis without stenosis, no significant change from June 2021 echo.)
Labs: Labs Reviewed by me
Old Records: Reviewed
[2023-11-30] MEDS: HUMULIN N KWIKPEN 15 UNITS SC (10:54)
[2023-11-30] MEDS: UNASYN IV ×3 (10:55→22:20)
[2023-11-30] MEDS: DECADRON 4 MG IV ×2 (11:05→22:20)
[2023-11-30] MEDS: NOVOLOG FLEXPEN-LOW RESISTANCE 300 UNITS SC (11:14)
--- NOTE | 2023-11-30 12:09 | CM ---
Reviewed chart. Met with and Mrs. Harmon to review discharge plans. He states prior to admission he resides with his spouse in an second floor apartment with an elevator. He states prior to admission he ambulates with a rolling walker. He
states he also uses home 02 at 2 liter all the time. He states [employer] services his home 02. He states he has has [facility] in the past and he is agreeable to having [facility] again. He states he has not been to a SNF/Rehab.
He states he has a prescription plan with [employer] and uses [facility]. Telephone call to [facility] to make the referral. sent referral. Will need to see his current functional level to see if he will have any skilled care needs.
Medical work-up in progress. The discharge plan is to return home with his spouse and [facility] when medically stable.
[2023-11-30 12:29] LABS: Glucose - Point of Care 314 mg/dl (70-99)
[2023-11-30] MEDS: NOVOLOG FLEXPEN-LOW RESISTANCE SC (15:38)
[2023-11-30 17:10] LABS: Glucose - Point of Care 325 mg/dl (70-99)
[2023-11-30] MEDS: NOVOLOG FLEXPEN-LOW RESISTANCE 4 UNITS SC (17:22)
[2023-11-30] MEDS: LOVENOX 40 MG SC (17:22)
--- NOTE | 2023-11-30 19:31 | PTCARENOTE ---
pt continues to be sr on the monitor, hr in the 80s, vss. pt offers no complaints at this time. pt and educated on plan of care and both verbalized understanding. bed alarm in place. call perkins within reach.
[2023-11-30 22:13] LABS: Glucose - Point of Care 291 mg/dl (70-99)
[2023-11-30 23:54] LABS: Urine Albumin Trace (Neg - Trace); Urine Bilirubin Negative (Negative); Urine Character Clear (Clear); Urine Color Yellow; Urine Glucose 3+ (Negative); Urine Ketone Negative (Negative); Urine Leukocyte Negative (Negative); Urine Nitrite Negative (Negative); Urine Occult Blood Trace (Negative); Urine Specific Gravity 1.025 (<1.030); Urine Urobilinogen Negative (Neg - 1+)
[2023-12-01 00:03] LABS: Urine White Cell None Seen /HPF (0-5)
--- NOTE | 2023-12-01 00:40 | PTCARENOTE ---
Pt pleasant to staff but very confused. calling and asking her to pick him up. 'states the Drs don't run his life' bed alarm in place. emotional support provided.
[2023-12-01 02:46] VITALS: BMI 26.6
[2023-12-01 02:48] VITALS: BP 126/72
[2023-12-01 03:14] LABS: Hematocrit 33.3 % (39.0-52.0); Hemoglobin 10.6 g/dL (13.0-18.0); Mean Corp Hgb Conc. 31.8 g/dL (33.0-37.0); Mean Corpuscular Hgb 26.6 pg (27.0-31.0); Mean Corpuscular Volume 83.7 fL (80.0-94.0); Mean Platelet Volume 10.5 fL (7.4-10.4); Platelet Count 350 10^3/uL (130-400); Red Blood Cell Count 3.98 10^6/uL (4.70-6.10); Red Cell Dist. Width 14.4 % (11.5-14.5); White Blood Cell Count 14.6 10^3/uL (4.8-10.8)
[2023-12-01 03:36] LABS: Blood Urea Nitrogen 41 mg/dl (9-20); Calcium 10.2 mg/dl (8.4-10.2); Carbon Dioxide 23 mmol/L (22-30); Chloride 96 mmol/L (98-107); Estimated Creatinine Clearance 55 ml/min; Glucose 266 mg/dl (70-99); Sodium 133 mmol/L (135-145); eGFR > 60.00
[2023-12-01] MEDS: UNASYN IV (05:06)
[2023-12-01] MEDS: PULMICORT 0.5 MG INH (07:14)
[2023-12-01] MEDS: CYMBALTA DELAYED RELEASE 60 MG PO (08:14)
[2023-12-01] MEDS: LIPITOR 40 MG PO (08:14)
[2023-12-01] MEDS: PROTONIX 40 MG PO (08:14)
[2023-12-01] MEDS: ASPIR LOW (ENTERIC COATED) 81 MG PO (08:14)
[2023-12-01 08:36] LABS: Glucose - Point of Care 308 mg/dl (70-99)
[2023-12-01] MEDS: HUMULIN N KWIKPEN 15 UNITS SC (08:55)
[2023-12-01] MEDS: NOVOLOG FLEXPEN-LOW RESISTANCE 4 UNITS SC (08:56)
--- NOTE | 2023-12-01 09:06 | W.PN.HOSP.TC ---
Today's Communication/Plan
-
d/c
Assessment / Plan
Assessment / Plan
Pt is a 78 year old male
acute on chronic respiratory failure/sob--pt admits to not wearing his O2 as he should--has IPF--pro BNP 410 without signs of overt failure--troponin elevation is likely nonischemic myocardial injury--cont O2--apprec cards/pulm input---strict
I&O--daily weight--cont albuterol, budesonide, decadron--ok for d/c
dizzy unclear cause--obtain orthostatics.
leukocytosis likely stress reaction--wbc 11.3--obtain UA--denied runny nose, congestion, cough
anemia of chronic disease--hgb stable at 9.3-no active bleeding
HX Generalized Anxiety Disorder/HX mild dementia- cont.� Duloxetine- cont. RADIO DISPATCHER Memantine
GERD-PPI continued
Hyperlipidemia- cont . Lipitor
IDDM-Continue Novolin N- add ISS low-CHO diet
DVT proph: LMWH
Full code
Anticipated Discharge: Today
Subjective/Interval History
-
Date of Service: December 01, 2023
pt ready for d/c
Objective Data
-
Labs:
Laboratory Results
12/01/23
02:52
WBC 14.6 H
Hgb 10.6 L
Hct 33.3 L
Plt Count 350
Sodium 133 L
Potassium 5.0
Chloride 96 L
Carbon Dioxide 23
BUN 41 H
Creatinine 1.0
Glucose 266 H
Calcium 10.2
Vital Signs:
max temp for 24 hours
11/30/23
15:20
Temp 98.4 F
Vital Signs
Temp Pulse Resp BP Pulse Ox
97.4 F 70 16 126/72 99
12/01/23 07:19 12/01/23 07:19 12/01/23 07:15 12/01/23 02:48 12/01/23 07:19
I&O
11/30/23 12/01/23 12/02/23
06:59 06:59 06:59
Intake Total 240 / 240 595 / 595
Output Total 250 / 250
Balance -10 / -10 595 / 595
Review of Systems
-
All other systems: Reviewed and negative
Physical Exam
-
General: Well Developed, Well Nourished and No Apparent Distress
HEENT: Normocephalic, Atraumatic and Oxygen
Respiratory: Crackles (coarse crackles throughout)
Cardiac: Regular Rhythm and S1/S2; Negative Murmur
GI: Soft, Nontender, Nondistended and Normal Bowel Sounds
Musculoskeletal: No Clubbing, No Cyanosis and No Edema
Neuro: Awake and Alert
Psych: Calm
[2023-12-01 10:20] VITALS: BP 151/83
[2023-12-01 10:44] VITALS: BP 151/83
[2023-12-01] MEDS: NAMENDA PO (10:47)
--- NOTE | 2023-12-01 12:41 | W.DCSUMMARY ---
Discharge Summary
Discharge Data
Date of Admission: 11/29/23
Date of Discharge: 12/01/23
-
Pending Results: No
Hospital Course
Primary care physician : Raj Borrego
Principal Discharge diagnosis : Acute on chronic respiratory failure with shortness of breath
Chronic Discharge diagnosis : Anemia of chronic disease, history of generalized anxiety disorder with mild dementia, gastroesophageal reflux disease, hyperlipidemia, type 2 diabetes mellitus insulin requiring
Hospital Course : Patient is a 78-year-old male with a history of chronic obstructive pulmonary disease on chronic oxygen therapy at home who presented with worsening shortness of breath. He denies any weight gain, lower extremity edema, fever,
chills, chest pain. He did complain of some mild dizziness but denied a syncopal episode. Patient was admitted.
Problem #1: Acute on chronic respiratory failure with shortness of breath. Chest x-ray in the emergency department showed 'mild congestive heart failure'. However, patient denied any weight gain, his proBNP on admission was 410 and patient did not
have any signs of overt failure. He was given 1 dose of IV Lasix in the emergency department. He was seen in consultation by pulmonary and cardiology. Neither pulmonary nor cardiology feel that this is a congestive heart failure exacerbation.
Patient admitted to not wearing his oxygen as he should. He also has idiopathic pulmonary fibrosis. Ultrasound was done which was negative for DVT. He was continued on albuterol, budesonide, Decadron. Patient's elevated troponin was likely
secondary to nonischemic myocardial injury and was not in heart failure exacerbation as per cardiology. Pulmonary feels that patient has left upper lobe pneumonia despite negative reading on chest x-ray. Doxycycline was started at discharge.
Problem #2: All other medical issues. These include Anemia of chronic disease, history of generalized anxiety disorder with mild dementia, gastroesophageal reflux disease, hyperlipidemia, type 2 diabetes mellitus insulin requiring. These medical
issues were stable during his hospitalization. Medications were continued as able.
Patient is stable for discharge home at this time. If there are any questions regarding this dictation or his hospital stay, please not hesitate to call. Our office number is [phone].
Important imaging findings :
PERIPHERAL VASCULAR ULTRASOUND IMPRESSION: No evidence of deep venous thrombosis of the lower extremities bilaterally.
CHEST X-RAY IMPRESSION: Mild CHF.
Discharge Plan
-
Patient Disposition: Home (Routine Discharge)
Discharge Diagnosis/Procedures: Acute on chronic respiratory failure/shortness of breath likely due to idiopathic pulmonary fibrosis, leukocytosis likely stress reaction, dizziness unclear cause, anemia of chronic disease, history of generalized
anxiety disorder with mild dementia, gastroesophageal reflux disease, hyperlipidemia, insulin-dependent diabetes mellitus type II
Condition: Good
Diet: As tolerated and Regular
Activity: As tolerated
Driving Restrictions: As prior to admission
Bathing Restrictions: None
Specialty Instructions: Weigh Daily- Call MD for wt gain/loss 3 lbs overnight/5 lbs in 1 week
Activity Restrictions/Additional Instructions:
MUST be diligent about wearing your oxygen as instructed
Referrals:
[facility] [Outside]
Raj Borrego MD [Family Provider] - in less than 1 week
Prescriptions:
New
doxycycline monohydrate 100 mg capsule
100 mg PO BID Qty: 10 0RF
prednisone 10 mg Tablet
See Rx Instructions .ROUTE .COMPLEX Qty: 30 0RF
Rx Instructions:
Take By Mouth:
40 mg daily x3 days, 30 mg daily x3 days,
20 mg daily x3 days, 10 mg daily x3 days.
Continued
aspirin 81 MG tablet,delayed release (DR/EC)
81 mg PO DAILY
atorvastatin 40 MG tablet
40 mg PO DAILY
cetirizine 10 MG tablet
10 mg PO DAILYPRN PRN (Reason: allergies)
diphenhydramine HCl [ZzzQuil] 25 mg Capsule
25 mg PO HSPRN PRN (Reason: INSOMNIA)
albuterol sulfate 90 mcg/actuation Hfa Aerosol Inhaler
2 puff INHALATION R Q4HPRN PRN (Reason: SOB)
duloxetine [Cymbalta] 60 mg Capsule,Delayed Release(Dr/Ec)
60 mg PO DAILY
insulin aspart U-100 [Novolog FlexPen U-100 Insulin] 100 unit/mL (3 mL) Insulin Pen
31 sliding scale dose SC AC
memantine 10 mg Tablet
10 mg PO BID
acetaminophen [Tylenol Extra Strength] 500 mg Tablet
1,000 mg PO Q6HPRN PRN (Reason: mild pain)
Novolin N FlexPen 100 unit/mL (3 mL) Insulin Pen
40 unit SC DAILY
Novolin N FlexPen 100 unit/mL (3 mL) Insulin Pen
27 unit SC HS
omeprazole 20 mg Tablet,Delayed Release (Dr/Ec)
20 mg PO DAILY
budesonide 0.5 mg/2 mL Suspension For Nebulization
0.5 mg inhalation R BID Qty: 60 0RF
Discharge Orders:
Discharge Patient (As Directed); Ordered 12/01/23
Ordered By: Loida Castaneda
Care Plan Goals
Care Plan Goals:
Problem: Readiness for enhanced knowledge related to diagnosis and treatment plan
Goal: Understand your diagnosis and treatment plan needs, including medications if applicable.
Instructions: Know your diagnosis, underlying causes and treatment plan options, including medications if applicable. Consult with your health care team to learn about your diagnosis and treatment plan, including medications if applicable.
Discharge Date and Time
Discharge Date/Time: 12/01/23 10:30
Print Language: BELARUSIAN
== END 2023-12-01 10:30 | disposition home health service (06) | DRG 189 ==
LOC: IVU 22:11
PROVIDERS: Clinical Nurse Specialist Family Health; Registered Nurse; ADMITTING PHYSICIAN Hospitalist; ATTENDING PHYSICIAN Internal Medicine; CONSULT PHYSICIAN Internal Medicine Cardiovascular Disease; EMERGENCY PHYSICIAN Emergency Medicine; FAMILY PHYSICIAN Family Medicine; OTHER PHYSICIAN Internal Medicine Critical Care Medicine
DX: J96.21 Acute and chronic respiratory failure with hypoxia (principal); I5A Non-ischemic myocardial injury (non-traumatic); J84.112 Idiopathic pulmonary fibrosis; J44.9 Chronic obstructive pulmonary disease, unspecified; I27.20 Pulmonary hypertension, unspecified; E11.9 Type 2 diabetes mellitus without complications; K21.9 Gastro-esophageal reflux disease without esophagitis; E78.5 Hyperlipidemia, unspecified
CPT/HCPCS: 71046; 80048; 80053; 80061; 81003; 81015; 82248; 82962; 83036; 83735; 83880; 84443; 84484; 85025; 85027; 93005; 93306; 93970; 94640; 96374; 96375; 99285

== ENCOUNTER 2023-12-18 17:38 | Inpatient (IN) | payer OTHER, SELFPAY ==
[2023-12-17] VITALS (9 sets, daily range): BP systolic 104–159; BP diastolic 59–80; BMI 28.3; BMI 27.0
--- NOTE | 2023-12-17 15:04 | ED.GENMED ---
History of Present Illness
General
Chief Complaint: Fall
Source: patient and family
Time Seen by Provider: 12/17/23 14:49
History of Present Illness
History of Present Illness:
78-year-old male presents emergency department with a history of recent frequent falls since discharge from the hospital after an episode of hypoxia related to idiopathic pulmonary fibrosis. Patient's family states that it appears that he has to
have a bowel movement quickly, 'does not think' when using the walker, and then has difficulty doing so and will slide down to the floor. He had an episode at 1 AM today where he was 'half on the toilet' and called out to his . It does not
appear that he hit his head at that time. She assisted him back on the toilet, applied his oxygen, and the event passed. He then went to the bathroom at approximately 7 AM and again slid down to the floor. Family noticed that his right medial
ankle appears swollen since these events and he is complaining of mild right calf since 11 AM. Of note, approximately 1 week ago, the patient fell forward, with a slight head strike. There was no loss of consciousness and they did not seek medical
attention that time because he 'looked fine'. History otherwise unremarkable. No recent vomiting, fever, chills, complaints of headache, neck pain, chest pain, dyspnea, abdominal pain, or other complaints.
Past History
Past History
ED Past Medical History: COPD (2 liters nasal canula), IDDM, Psychiatric and Other (Ulcerative colitis, cognitive decline (mild dementia), Headaches, PNA, Renal calculus, Essential tremors, Interstitial lung disease)
ED Past Surgical History: Appendectomy, Cholecystectomy, Orthopedic (Right Rotator cuff), Urological (Lithotripsy) and Other (Cataracts)
Social History
Tobacco: Non-smoker
Alcohol: None
Personal:
Living: with family
Family History
Family History: Other (reviewed and noncontributory)
Phy Exam
Physical Exam
Physical Exam:
GENERAL: Alert , in no apparent distress
EYE: pupils equal and reactive, no photophobia, EOMI, conjunctive pink
NECK: Supple, no significant adenopathy, no midline tenderness.
ENT: o/p clr, mmm, no signs of head or facial injury, no ring, no raccoon.
CARDIAC: Regular rate and rhythm .
LUNGS: Equal breath sounds bilaterally, no acute respiratory distress, no wheezing or rhonchi, diffuse Rales noted consistent with history of IPF
ABDOMEN: Soft, without focal tenderness, no r/g, no cvat
NEUROLOGICAL: Awake and alert but slightly confused, no focal neuro deficits, moves all extremities equally, speech clear
SKIN: Warm and dry, skin intact.
MUSCULOSKELETAL: There is mild edema noted at the medial aspect of the right ankle without skin deformity. No calf tenderness or swelling noted, full range of motion, negative Homans no tenderness to palpation of foot ankle or tib-fib area., well
perfused.
PSYCH: Normal and appropriate interaction.
Course
Orders/Labs/Results
Orders:
Orders
12/17/23 Dinner
Regular
At Your Request: Full Participation
12/17/23 15:01
CT Head W/o Iv Contrast Urgent
Comment:
Reason For Exam: freq falls
CR Ankle - Right Min 3 Views * Urgent
Comment:
Reason For Exam: fall
Tib/Fib, Right 2 View [CR Leg Tibia/fibula Right 2 Vw] Stat
Comment:
Reason For Exam: fall
12/17/23 15:15
Complete Blood Count/No Diff Urgent
Comprehensive Metabolic Panel Urgent
12/17/23 16:02
Electrocardiogram (*1) Urgent
Reason for Study: Other
Other Reason for Exam: fall
EKG- Treatment ONCE
12/17/23 16:51
Admit/Transfer Patient As Directed
Co-Sign Provider:
Level of Care: Observation services
Assign to:: Medical/Surgical
Physician / Group: veldanda
Diagnosis: distal fibula/medial malleolus fracture
12/17/23 16:52
Code Status As Directed
Resuscitation Status: Full Code
12/17/23 17:38
Urinalysis Reflex To Culture Urgent
Date Specimen was Collected: 12/17/23
Time Specimen was Collected: 16:41
12/17/23 18:02
Acetaminophen [Tylenol] 650 mg PO Q4HPRN PRN
Albuterol [ProAIR HFA INHALER] 2 puff INH R Q4HPRN PRN
Cetirizine HCl [Zyrtec] 10 mg PO DAILYPRN PRN
Dextrose 50%-Water [Dextrose 50% Syringe] 12.5 grams IV [id number] PRN
Glucagon [GlucaGen] 1 mg IM PRN PRN
HYDROmorphone [Dilaudid] 0.5 mg IV Q4HPRN PRN
Oxymetazoline HCl [Afrin Nasal [place]] See Dose Instructions NASAL DAILYPRN PRN
12/17/23 18:02
ORTHOPEDIC CONSULT Routine
Consulting Provider: Johny Clarke
Was physician already notified: Yes
Activity As Directed
Activity Level: As Tolerated
Bedside Glucose Monitoring As Directed
Frequency: AC&HS
Additional Instructions:: Change to q6h if pt on TPN, tube feeding or not eating
Bladder Scan As Directed
Follow Bladder Retention/Intermittent Cath Algorithm?: Yes
PRN if no void in __ hours: 6
Frequency: Per Retention Algorithm
If Bladder Scan Result >: 400
then:: Straight cath
Pneumatic Compression Sleeves As Directed
Type: Knee high
Straight Cath As Directed
Frequency: Per Retention Algorithm
Additional Instructions: straight cath as needed per acute urinary retention algorithm for 24 hrs
Additional Instructions: for bladder scan greater than 400 mL
Vital Signs As Directed
Frequency: Per unit guidelines
DX Deep Vein Thrombosis Video Routine
12/17/23 18:44
Pantoprazole [Protonix] 40 mg PO DAILYPRN PRN
12/17/23 19:00
Flush (0.9% Sodium Chloride) [Flush (Nss)] See Dose Instructions IV PER PROTOCOL
12/17/23 20:00
Budesonide [Pulmicort] 0.5 mg INH R BID
Memantine HCl [Namenda] 10 mg PO BID
12/17/23 22:00
Insulin NPH Human Isophane Pen [Humulin N Kwikpen] 14 units SC HS
12/18/23 00:00
US Periph Venous LOWER Ext RT Urgent
Reason For Exam: pain
12/18/23 02:21
Pt Screening Request from Juliette Routine
12/18/23 04:51
Complete Blood Count/With Diff IN AM
Comprehensive Metabolic Panel IN AM
12/18/23 Breakfast
NPO
Allow oral meds: Yes
Allow clear liquids: Sips of Clears
CeFAZolin 2 GRAM [Ancef] 2 grams in 10 ml IV PRE PROCEDURE
12/18/23 06:13
Type+Screen IN AM
12/18/23 07:00
0.9% Sodium Chloride 1000 ml [Nss] 1,000 ml IRRIG OR
12/18/23 07:30
Insulin Aspart Corrective Mod [Novolog Flexpen-Moderate Resistance] See Protocol SC AC
12/18/23 08:00
Aspirin Low Dose EC [Aspir Low (Enteric Coated)] 81 mg PO DAILY
Atorvastatin [Lipitor] 40 mg PO DAILY
Duloxetine Delayed Release [Cymbalta Delayed Release] 60 mg PO DAILY
Insulin NPH Human Isophane Pen [Humulin N Kwikpen] 20 units SC DAILY
12/18/23 09:27
HYDROmorphone [Dilaudid] 0.25 mg IV PACU-Q5MPRN PRN
Meperidine [Demerol] 12.5 mg IV PACU-Q5MPRN PRN
Morphine Sulfate 1 mg IV PACU-Q5MPRN PRN
Ondansetron Injectable [Zofran] 4 mg IV PACU-ONCEPRN PRN
Prochlorperazine [Compazine] 5 mg IV PACU-ONCEPRN PRN
Notify MD As Directed
Notify physician if: for SDS patients with known or suspected sleep obstructive sleep apnea, monitor in the
PACU.
Notify MD for any apneic/desaturation episodes
O2 Therapy [RESP] Urgent
Titrate/Wean O2 to maintain O2 sat greater than (%): 92
Special Instructions: -Provide supplemental oxygen to achieve O2 sat of 92% or greater.
-After 15 min, may wean O2 and discontinue if patient is able to maintain O2 sat of 92%
or greater during recovery period.
If patient is a discharge home, without oxygen therapy, notify anestheiologist if
unable to maintain O2 SAT of 92% or greater on room air for MD clearance.
12/18/23 09:30
Normosol (Mult Electrolytes) [Normosol-R] 1,000 ml IV PER PROTOCOL
12/18/23 09:37
Case Management Consult ONCE
Case Management Consult: Discharge Planning
Activity As Directed
Activity Level: As Tolerated
Neurovascular Checks As Directed
Location: Right Lower extremity
Frequency: q4h
Other frequency: every 4 hours for 24 hours then every shift
Vital Signs As Directed
Frequency: Post-operative guidelines
Weight Bearing Status As Directed
Weight bearing to: Right lower extremity
Type: Non Wt. bearing
12/18/23 09:39
Ot Eval And Treat Routine
Pt Eval And Treat Routine
Activity Level: Out of Bed-Early Mobility
12/18/23 09:40
Oxycodone [Roxicodone] 10 mg PO Q4HPRN PRN
Oxycodone [Roxicodone] 5 mg PO Q4HPRN PRN
12/18/23 Lunch
1800 calorie (15 carb) Diabetic
At Your Request: Limited, Buhr Dresser Required
CeFAZolin 2 GRAM [Ancef] 2 grams in 10 ml IV PRE PROCEDURE
12/18/23 10:18
Midazolam HCl [Versed] 2 mg .ROUTE .STK-MED ONE
12/18/23 10:33
Ketamine 5 ml .ROUTE .STK-MED
12/18/23 10:34
Fentanyl Citrate/Pf [Sublimaze] 100 mcg .ROUTE .STK-MED ONE
12/18/23 10:57
Lidocaine HCl/Pf [Xylocaine-Mpf 1% Vial] 50 mg .ROUTE .STK-MED ONE
Propofol [Diprivan] 40 ml .ROUTE .STK-MED
12/18/23 11:10
Famotidine [Pepcid] 20 mg .ROUTE .STK-MED ONE
Ketorolac [Toradol] 30 mg .ROUTE .STK-MED ONE
Ondansetron Injectable [Zofran] 4 mg .ROUTE .STK-MED ONE
12/18/23 11:49
Acetaminophen 1000MG/100Ml [Ofirmev] 1,000 mg in 100 ml .ROUTE .STK-MED
12/18/23 11:53
Insulin NPH Human Isophane Pen [Humulin N Kwikpen] 27 units SC HS
Insulin NPH Human Isophane Pen [Humulin N Kwikpen] 40 units SC DAILY
12/18/23 12:00
Insulin Aspart Corrective Mod [Novolog Flexpen-Moderate Resistance] See Protocol SC Q6
12/18/23 12:10
Dexmedetomidine HCl [Precedex] 200 mcg .ROUTE .STK-MED ONE
12/18/23 12:11
CR Ankle - Right Min 3 Views * Routine
RF Fluoroscopy, C-arm Routine
Reason For Exam: ORIF RIGHT ANKLE
12/18/23 13:08
Dextrose 50%-Water [Dextrose 50% Syringe] 12.5 grams IV PROCEDURE-PRN PRN
Insulin Aspart [NOVOLOG vial] See Protocol SC PROCEDURE- Q2H PRN PRN
Bedside Glucose Monitoring As Directed
Frequency: Q2H
Additional Instructions:: UNTIL PATIENT LEAVES PROCEDURE AREA
12/18/23 13:37
Insulin Aspart [NOVOLOG vial] 100 units .ROUTE .STK-MED ONE
12/18/23 15:12
Request for Physical Therapy [NOTICE] Routine
12/18/23 16:25
Inpatient/Observation Status Change [Level of Care Change] As Directed
Level of Care: Inpatient admission
Reason for Hospitalization: Right distal fibula/medial malleolus fracture
Expected length of stay greater than two midnights?: Yes
ELOS- Estimated Length of Stay in days: 3
I certify the patient meets the requirements for IP care: Yes
12/18/23 16:30
Insulin Aspart Corrective Mod [Novolog Flexpen-Moderate Resistance] See Protocol SC AC
12/18/23 18:00
Aspirin 325 mg PO DAILY
CeFAZolin 1 GRAM [Ancef] 1 gram in 5 ml IV Q8H
12/19/23 04:50
Basic Metabolic Panel IN AM
Complete Blood Count/With Diff IN AM
12/20/23 05:26
Basic Metabolic Panel IN AM
Complete Blood Count/With Diff IN AM
Abnormal Lab Results
12/17/23 12/17/23 12/17/23
15:15 17:38 21:30
WBC 11.1 H 10^3/uL
(4.8-10.8)
RBC 3.54 L 10^6/uL
(4.70-6.10)
Hgb 9.7 L g/dL
(13.0-18.0)
Hct 30.0 L %
(39.0-52.0)
MCHC 32.3 L g/dL
(33.0-37.0)
RDW 14.9 H %
(11.5-14.5)
MPV
Abs Immat Gran (auto)
Absolute Neuts (auto)
Absolute Monos (auto)
Immature Gran %
Neutrophils %
Lymphocytes %
Sodium 134 L mmol/L
(135-145)
Chloride 97 L mmol/L
(98-107)
BUN 35 H mg/dl
(9-20)
Glucose
Urine Glucose Trace A
(Negative)
POC Glucose 258 H mg/dl
(70-99)
12/18/23 12/18/23 12/18/23
04:51 07:38 13:32
WBC 12.3 H 10^3/uL
(4.8-10.8)
RBC 3.33 L 10^6/uL
(4.70-6.10)
Hgb 9.1 L g/dL
(13.0-18.0)
Hct 27.8 L %
(39.0-52.0)
MCHC 32.7 L g/dL
(33.0-37.0)
RDW 15.2 H %
(11.5-14.5)
MPV 10.5 H fL
(7.4-10.4)
Abs Immat Gran (auto) 0.1 H 10^3/uL
(0-0.05)
Absolute Neuts (auto) 9.7 H 10^3/uL
(1.4-6.5)
Absolute Monos (auto) 1.0 H 10^3/uL
(0.1-0.6)
Immature Gran % 1.1 H %
(0-0.5)
Neutrophils % 78.6 H %
(42.2-75.2)
Lymphocytes % 10.6 L %
(20.5-51.1)
Sodium 133 L mmol/L
(135-145)
Chloride 95 L mmol/L
(98-107)
BUN 38 H mg/dl
(9-20)
Glucose 207 H mg/dl
(70-99)
Urine Glucose
POC Glucose 252 H mg/dl 232 H mg/dl
(70-99) (70-99)
12/18/23 04:51
12/18/23 04:51
Vital Signs
Initial and Last Documented VS:
Initial Vital Signs
Temp Pulse Resp BP Pulse Ox
98.6 F 104 16 104/69 98
12/17/23 13:44 12/17/23 13:44 12/17/23 13:44 12/17/23 13:44 12/17/23 13:44
Last Documented Vital Signs
Temp Pulse Resp BP Pulse Ox
97.9 F 62 16 111/56 100
12/20/23 07:29 12/20/23 07:52 12/20/23 07:52 12/20/23 07:29 12/20/23 07:52
*Critical Care Note
Total Time (30-74mins, 75-104mins- exclusive of procedures): Not Applicable
Update Note
Update Note:
Patient presents to the Emergency Department with __frequent falls
Number and Complexity of Problems Addressed at the Encounter
� Chronic conditions affecting care:
� Acute Exacerbation and/or Progression of Chronic Illness:
� Differential Diagnosis includes: But not limited to deconditioning, electrolyte disorder, dehydration, generalized weakness, PE, ankle fracture, etc.
Amount and/or Complexity of Data to be Reviewed and Analyzed
� I performed an independent evaluation of and my interpretation is:
EKG: Read by me, normal sinus rhythm, nonspecific T wave flattening laterally relatively unchanged from prior, no acute ischemia
CT: Read by me, atrophy, no bleed
Xrays: Read by me, right trimalar fracture noted formal report: Minimal displacement of fractures involving the distal fibula and medial malleolus.
The talus is angled from the superior lateral to the inferomedial.
The proximal tibia and fibula are otherwise intact.
Laboratory Studies: Anemia stable, leukocytosis improved
Other:
� Review of other/old records reveals: Patient seen and stayed overnight in the hospital November 28 through the , discharge summary reviewed, history of COPD on chronic oxygen and symptoms thought to be due to idiopathic
pulmonary fibrosis. Patient also started on doxycycline due to concern of a left upper lobe pneumonia despite negative reading on chest x-ray.
� Clinical information was obtained by an independent historian: and daughter at bedside
� Prescriptions/Medications Considered but not given:
� Further testing considered but not performed:
Risk of Complications and/or Morbidity or Mortality of Patient Management
� Social determinants of health affecting care:
� Discussion with other providers (PCP, Hospitalists, Consultants, etc):
� Escalation of care including admission/observation vs risk of discharge considered: Case discussed with orthopedics, Dr. Clarke, images sent to him. Agrees with plan to admit to hospitalist, n.p.o. after midnight, apply
splint here, plan for OR likely in the morning, should not need reduction in the ED. Case discussed with hospitalist for admission
ED Attending Note
-
Portions of this chart may have been created with voice recognition software.� Occasional wrong word or��sound alike� substitutions may have occurred due to the inherent limitations of voice recognition software.
Discharge Plan
Departure
Patient Disposition: Admit
Date of Disposition: 12/17/23
Time of Disposition: 16:17
Admit to: Med/Surg
Presentation/result/management discussed w/ accepting MD/DO: Hospitalist
Condition: Fair
Discharge Problem:
Fracture of tibia and fibula
Interventions
Interventions:
*Risk Screen - Suicide Last Done: 12/17/23 19:45
*General Assessment Last Done: 12/17/23 13:52
*Neglect/Abuse Screening Last Done: 12/17/23 13:52
ED- Fall Risk Assessment Last Done: 12/17/23 18:26
*ED COVID-19 Vaccine History Last Done: 12/17/23 19:45
*Nursing Disposition Last Done: 12/17/23 18:26
ED-Musculoskeletal Assessment Last Done: 12/17/23 13:52
ED- Neurological Assessment Last Done: 12/17/23 13:52
ED-Skin Assessment Last Done: 12/17/23 13:52
Discharge Date and Time
Discharge Date/Time: 12/17/23 18:26
[2023-12-17 15:22] LABS: Hemoglobin 9.7 g/dL (13.0-18.0); Mean Corp Hgb Conc. 32.3 g/dL (33.0-37.0); Mean Corpuscular Hgb 27.4 pg (27.0-31.0); Mean Corpuscular Volume 84.7 fL (80.0-94.0); Mean Platelet Volume 9.8 fL (7.4-10.4); Platelet Count 259 10^3/uL (130-400); Red Blood Cell Count 3.54 10^6/uL (4.70-6.10); Red Cell Dist. Width 14.9 % (11.5-14.5); White Blood Cell Count 11.1 10^3/uL (4.8-10.8)
[2023-12-17 15:45] LABS: ALT (SGPT) 21 U/L (0-50); AST (SGOT) 30 U/L (17-59); Albumin 3.9 g/dl (3.5-5.0); Alkaline Phosphatase 93 U/L (38-126); Blood Urea Nitrogen 35 mg/dl (9-20); Calcium 9.8 mg/dl (8.4-10.2); Carbon Dioxide 30 mmol/L (22-30); Chloride 97 mmol/L (98-107); Estimated Creatinine Clearance 50 ml/min; Glucose 91 mg/dl (70-99); Potassium 4.7 mmol/L (3.5-5.1); Sodium 134 mmol/L (135-145); Total Bilirubin 0.5 mg/dl (0.2-1.3); Total Protein 6.5 g/dl (6.3-8.2); eGFR > 60.00
--- NOTE | 2023-12-17 16:54 | HPS.HSE ---
Family Physician
-
Family Physician: Raj Borrego
Chief Complaint
-
fall, right ankle swelling
History of Present Illness
78-year-old male past medical history of idiopathic pulmonary fibrosis/ILD, COPD on 2 L baseline, pulmonary hypertension, essential hypertension, anemia of chronic disease, anxiety, dementia, GERD, hyperlipidemia, type 2 diabetes, ulcerative
colitis, essential tremor, frequent falls presenting with fall. He has been having frequent falls recently since recent hospital discharge while using walker associate with dizziness secondary to postural hypotension. At 1 AM today he had a fall
while he was on the toilet. He called out to his and she assisted him back onto the toilet. It appears he did not hit his head. He then went to the bathroom later at 7 AM and again slid down to the floor. Family noted that his right medial
ankle was swollen and he was complaining of right mid calf pain since 11 AM.
1 week ago he fell forward with slight head strike. No loss of consciousness. They did not seek medical attention at that time as he looked fine. He has been seen by neurology and had been evaluated for Parkinson's disease.
Patient complaining of difficulty urinating at this time which is not normal for him.
Patient denies any vomiting, fevers or chills, headache, neck pain, chest pain, shortness of breath abdominal pain or any other symptoms.
He was recently hospitalized 2 weeks ago for ILD flare treated with antibiotics and steroids. He became very agitated while on steroids and no longer on them.
No smoking or alcohol use.
Medical History
Past Medical History
Past Medical History: Reports Psychiatric and Other (idiopathic pulmonary fibrosis/ILD, COPD on 2 L baseline, pulmonary hypertension, essential hypertension, anemia of chronic disease, anxiety, dementia, GERD, hyperlipidemia, type 2 diabetes,
ulcerative colitis, essential tremor, frequent falls)
Past Surgical History: Reports Other (Appendectomy, Cholecystectomy, Orthopedic (Right Rotator cuff), Urological (Lithotripsy) and Other (Cataracts))
Social History
Tobacco: Non-smoker
Alcohol: None
Drug: None
Family History
Family History: Not pertinent
Allergies / Home Medications
Allergies reflects when Allergies were last updated in [employer].
Home Medications with original date entered in [employer]
Allergy/Medication List:
Allergies
Allergy/AdvReac Type Severity Reaction Status Date / Time
Sulfa (Sulfonamide Allergy CONFUSION Verified 12/17/23 13:46
Antibiotics)
sulfamethoxazole Allergy CONFUSION Verified 12/17/23 13:46
trimethoprim Allergy Unknown Verified 12/17/23 13:46
Home Medications
aspirin 81 mg tablet,delayed release 81 mg PO DAILY Blood clot prevention/tx 07/06/21
atorvastatin 40 mg tablet 40 mg PO DAILY High cholesterol 07/06/21
cetirizine 10 mg tablet 10 mg PO DAILYPRN PRN allergies 07/06/21
albuterol sulfate 90 mcg/actuation aerosol inhaler 2 puff inhalation R Q4HPRN PRN SOB 06/23/23
diphenhydramine HCl 25 mg capsule (ZzzQuil) 25 mg PO HSPRN PRN INSOMNIA 06/23/23
duloxetine 60 mg capsule,delayed release (Cymbalta) 60 mg PO DAILY Mental Health/Anxiety 06/23/23
insulin aspart U-100 100 unit/mL (3 mL) subcutaneous pen (Novolog FlexPen U-100 Insulin aspart) 31 sliding scale dose SC AC Diabetes 06/24/23
memantine 10 mg tablet 10 mg PO BID Neurological Condition 06/24/23
acetaminophen 500 mg tablet (Tylenol Extra Strength) 1,000 mg PO Q6HPRN PRN mild pain 11/29/23
insulin NPH isoph U-100 human 100 unit/mL (3 mL) subcutaneous pen (Novolin N FlexPen) 27 unit SC HS Diabetes 11/29/23
insulin NPH isoph U-100 human 100 unit/mL (3 mL) subcutaneous pen (Novolin N FlexPen) 40 unit SC DAILY Diabetes 11/29/23
omeprazole 20 mg tablet,delayed release 20 mg PO DAILYPRN PRN gastrointestinal issue 11/29/23
budesonide 0.5 mg/2 mL suspension for nebulization 0.5 mg (2 mL) inhalation R BID Lung/breathing issues #60 mL 12/01/23
Cbd-Melatonin 1 tab PO HS 12/17/23
oxymetazoline 0.05 % nasal spray (Afrin (oxymetazoline)) 1 spray intranasal DAILYPRN PRN nasal conjestion 12/17/23
Review of Systems
-
History Source: Patient
A 12 point ROS was completed and negative except as noted: Yes
Constitutional: Reports No Symptoms
EENT: Reports No Symptoms
Respiratory: Reports No Symptoms
Cardiac: Reports No Symptoms
Abdomen/GI: Reports No Symptoms
: Reports No Symptoms
Musculoskeletal: Reports No Symptoms
Skin: Reports No Symptoms
Neurological: Reports No Symptoms
Endocrine: Reports No Symptoms
Hematologic/Lymphatic: Reports No Symptoms
Psych: Reports No Symptoms
Physical Exam
Vital Signs
Vital Signs
Temp Pulse Resp BP Pulse Ox
98.6 F 81 21 159/80 98
12/17/23 13:44 12/17/23 16:30 12/17/23 16:30 12/17/23 16:19 12/17/23 16:30
Physical Exam
General: Well Developed, Well Nourished and No Apparent Distress
HEENT: NormoCephalic, Moist mucous membranes and Atraumatic
Respiratory: Clear
Cardiac: S1/S2 and Regular Rhythm; No Murmur or Rub
GI: Soft, Non Tender, Non Distended and Normal Bowel Sounds; No Organomegaly
Rectal: Deferred by Provider
Musculoskeletal: No Clubbing, No Cyanosis, No Edema and Other (right ankle swelling and erythema and tenderness )
Skin: No Rash
Neuro: Nonfocal/grossly intact
Laboratory Results
-
12/17/23 15:15
12/17/23 15:15
Laboratory Results
Total Bilirubin 0.5 mg/dl (0.2-1.3) 12/17/23 15:15
AST 30 U/L (17-59) 12/17/23 15:15
ALT 21 U/L (0-50) 12/17/23 15:15
Alkaline Phosphatase 93 U/L (38-126) 12/17/23 15:15
Data Reviewed
-
Lab Data: Labs Reviewed by me
Old Records: Reviewed
Impression/Plan
-
IMPRESSION:
PLAN:
# Right distal fibula/medial malleolus fracture
-Venous ultrasound pending to rule out DVT
-Splint to be placed
-N.p.o. postmidnight as per Ortho for potential surgery
-Tylenol, Dilaudid for severe pain
# Recurrent falls since recent hospitalization likely orthostatic
# History of postural hypotension
-CT head today with no acute abnormality
# Difficulty urinating
# Underlying BPH
-Urinalysis pending
-Bladder scan protocol
History of idiopathic pulmonary fibrosis/ILD on 2 L baseline
-Back to baseline
COPD
-Continue inhalers
Pulmonary hypertension
Essential hypertension
Anemia of chronic disease
-Hemoglobin stable
Anxiety
-Continue duloxetine
Dementia
-Continue memantine
GERD
-Continue omeprazole
Hyperlipidemia
-Continue statin
Type 2 diabetes
-Blood sugar 90 here
-Reduce Novolin N to 20 units daily, 14 units at night
-Moderate sliding scale
Ulcerative colitis
Essential tremor
Full code
DVT prophylaxis�SCDs left
N.p.o. past midnight
[2023-12-17 17:46] LABS: Urine Albumin Trace (Neg - Trace); Urine Bilirubin Negative (Negative); Urine Character Clear (Clear); Urine Color Yellow; Urine Glucose Trace (Negative); Urine Ketone Negative (Negative); Urine Leukocyte Negative (Negative); Urine Nitrite Negative (Negative); Urine Occult Blood Negative (Negative); Urine Urobilinogen Negative (Neg - 1+); Urine pH 6.5 (5.0-9.0)
--- NOTE | 2023-12-17 18:35 | PTCARENOTE ---
Patient admitted from home for a fractured right distal fibula fracture.He will be NPO after midnight for possible surgery tomorrow.The patient has a history significant for pulmonary fibrosis/COPD and was hospitalized recently with hypoxia.He has
been having recent falls since that hospitalization.He is alert but drowsy.The fracture is stabilized with a splint which is intact.Vital signs are stable except for the oxygen saturation.Patient uses home oxygen.I increased it to 3 liters and we
were able to get 97%.The [patient is in the bed with the call perkins in reach.His is at the bedside and he is eating his dinner.
[2023-12-17] MEDS: PULMICORT 0.5 MG INH (20:12)
[2023-12-17] MEDS: NAMENDA 10 MG PO (20:33)
[2023-12-17 21:32] LABS: Glucose - Point of Care 258 mg/dl (70-99)
[2023-12-17] MEDS: HUMULIN N KWIKPEN 14 UNITS SC (22:24)
[2023-12-17] MEDS: HUMULIN N KWIKPEN 20 UNITS SC (22:25)
[2023-12-18] VITALS (11 sets, daily range): BP systolic 105–146; BP diastolic 39–78; PULSE 80; O2SAT 98; BMI 27.1
--- NOTE | 2023-12-18 06:06 | W.PN.UPDATE ---
Update Note
Progress Note Update
Patient seen and evaluated by orthopedic surgery this morning. Full consult note pending.
Patient with right trimalleolar ankle fracture. Plan to proceed to the OR today under the direction of Dr. Vernon or Dr. Calrke for right ankle ORIF as long as medically cleared to proceed.
Consent obtained and placed in patient's chart. Patient to remain NPO. NWB to RLE. Pre-operative antibiotics and irrigation will call to the OR. Right ankle marked as correct surgical extremity.
Patient with a history of anemia of chronic disease. Hemoglobin 12/17/2023 9.7. Hemoglobin this AM 9.1. Continue to monitor. Type and Screen ordered.
[2023-12-18 06:10] LABS: % Basophils 0.4 % (0-2); % Eosinophils 1.1 % (0-6); % Immature Granulocytes 1.1 % (0-0.5); % Lymphocytes 10.6 % (20.5-51.1); % Monocytes 8.2 % (1.7-9.3); % Neutrophils 78.6 % (42.2-75.2); Absolute Basophils 0.1 10^3/uL (0-0.2); Absolute Eosinophils 0.1 10^3/uL (0-0.7); Absolute Immature Granulocytes 0.1 10^3/uL (0-0.05); Absolute Lymphocytes 1.3 10^3/uL (1.2-3.4); Absolute Neutrophils 9.7 10^3/uL (1.4-6.5); Hematocrit 27.8 % (39.0-52.0); Hemoglobin 9.1 g/dL (13.0-18.0); Mean Corp Hgb Conc. 32.7 g/dL (33.0-37.0); Mean Corpuscular Hgb 27.3 pg (27.0-31.0); Mean Corpuscular Volume 83.5 fL (80.0-94.0); Mean Platelet Volume 10.5 fL (7.4-10.4); Nucleated Red Blood Cells % 0 % (-); Platelet Count 260 10^3/uL (130-400); Red Blood Cell Count 3.33 10^6/uL (4.70-6.10); Red Cell Dist. Width 15.2 % (11.5-14.5); White Blood Cell Count 12.3 10^3/uL (4.8-10.8)
[2023-12-18] MEDS: TYLENOL 650 MG PO ×2 (06:22→16:05)
[2023-12-18] MEDS: ANCEF 10 IV (06:22)
[2023-12-18 06:41] LABS: ALT (SGPT) 21 U/L (0-50); AST (SGOT) 25 U/L (17-59); Alkaline Phosphatase 98 U/L (38-126); Blood Urea Nitrogen 38 mg/dl (9-20); Calcium 9.7 mg/dl (8.4-10.2); Carbon Dioxide 26 mmol/L (22-30); Chloride 95 mmol/L (98-107); Estimated Creatinine Clearance 42 ml/min; Glucose 207 mg/dl (70-99); Sodium 133 mmol/L (135-145); Total Bilirubin 0.8 mg/dl (0.2-1.3); Total Protein 6.4 g/dl (6.3-8.2); eGFR 56.23
[2023-12-18 07:41] LABS: Glucose - Point of Care 252 mg/dl (70-99)
[2023-12-18] MEDS: PULMICORT 0.5 MG INH ×2 (07:52→20:44)
--- NOTE | 2023-12-18 08:04 | CON.ORTHO ---
Consultation
-
Date/Time Consultation Requested: 12/17/23 @ 18:02
Date/Time Consultation Performed: 12/18/23 @ 6:00 AM
Requesting Provider: Paola Gardner MD
Performing Provider: Joaquin Bueno PA-C for Dr. Johny Clarke
Reason for Consultation: Right Ankle Fracture
Consultation - Orthopedics
History
HPI: The patient is a 78-year-old male with a past medical history of idiopathic pulmonary fibrosis/ILD, COPD on 2 L baseline, pulmonary hypertension, essential hypertension, anemia of chronic disease, anxiety, dementia, GERD, hyperlipidemia, type 2
diabetes, ulcerative colitis, essential tremor, and frequent falls presenting to [facility] after sustaining a mechanical fall. Patient reports that he was walking in his living room when his leg went out. Patient
ambulates with a walker at baseline. Patient reports immediate onset of pain with swelling and inability to bear weight. X-rays obtained in the Emergency Department revealed a right ankle fracture. Splint was placed and he was admitted with
Orthopedic consult. The patient denies any other injuries. He denies any anticoagulant use. Orthopedic surgery was consulted regarding treatment recommendations for his right ankle fracture.
Past Medical History
Past Medical History: Reports Psychiatric and Other (idiopathic pulmonary fibrosis/ILD, COPD on 2 L baseline, pulmonary hypertension, essential hypertension, anemia of chronic disease, anxiety, dementia, GERD, hyperlipidemia, type 2 diabetes,
ulcerative colitis, essential tremor, frequent falls)
Past Surgical History: Reports Other (Appendectomy, Cholecystectomy, Orthopedic (Right Rotator cuff), Urological (Lithotripsy) and Other (Cataracts))
Social History
Tobacco: Non-smoker
Alcohol: None
Drug: None
Family History
Family History: Not pertinent
Review of Systems: 12-point review of systems obtained and negative except those mentioned in the HPI.
Allergies / Home Medications
Allergy/AdvReac Type Severity Reaction Status Date / Time
house dust Allergy Unknown Verified 12/17/23 18:38
prednisone Allergy pt was Verified 12/17/23 18:37
'manic'
when given
this med
Sulfa (Sulfonamide Allergy CONFUSION Verified 12/17/23 13:46
Antibiotics)
sulfamethoxazole Allergy CONFUSION Verified 12/17/23 13:46
trimethoprim Allergy Unknown Verified 12/17/23 13:46
�Medication �Instructions �Recorded
aspirin 81 mg tablet,delayed 81 mg PO DAILY Blood clot 07/06/21
release prevention/tx
atorvastatin 40 mg tablet 40 mg PO DAILY High cholesterol 07/06/21
cetirizine 10 mg tablet 10 mg PO DAILYPRN PRN allergies 07/06/21
albuterol sulfate 90 mcg/actuation 2 puff inhalation R Q4HPRN PRN SOB 06/23/23
aerosol inhaler
diphenhydramine HCl 25 mg capsule 25 mg PO HSPRN PRN INSOMNIA 06/23/23
(ZzzQuil)
duloxetine 60 mg capsule,delayed 60 mg PO DAILY Mental 06/23/23
release (Cymbalta) Health/Anxiety
insulin aspart U-100 100 unit/mL 31 sliding scale dose SC AC 06/24/23
(3 mL) subcutaneous pen (Novolog Diabetes
FlexPen U-100 Insulin aspart)
memantine 10 mg tablet 10 mg PO BID Neurological Condition 06/24/23
acetaminophen 500 mg tablet 1,000 mg PO Q6HPRN PRN mild pain 11/29/23
(Tylenol Extra Strength)
insulin NPH isoph U-100 human 100 27 unit SC HS Diabetes 11/29/23
unit/mL (3 mL) subcutaneous pen
(Novolin N FlexPen)
insulin NPH isoph U-100 human 100 40 unit SC DAILY Diabetes 11/29/23
unit/mL (3 mL) subcutaneous pen
(Novolin N FlexPen)
omeprazole 20 mg tablet,delayed 20 mg PO DAILYPRN PRN 11/29/23
release gastrointestinal issue
budesonide 0.5 mg/2 mL suspension 0.5 mg (2 mL) inhalation R BID 12/01/23
for nebulization Lung/breathing issues #60 mL
Cbd-Melatonin 1 tab PO HS 12/17/23
oxymetazoline 0.05 % nasal spray 1 spray intranasal DAILYPRN PRN 12/17/23
(Afrin (oxymetazoline)) nasal conjestion
Vital Signs / Lab Results
Temp Pulse Resp BP Pulse Ox
98.0 F 78 18 125/59 95
12/17/23 23:35 12/18/23 07:53 12/18/23 07:53 12/17/23 23:35 12/17/23 23:35
12/18/23 04:51
12/18/23 04:51
Radiographic Findings:
CR Ankle - Right Min 3 Views*; CR Leg Tibia/Fibula Right 2 Views was obtained at [facility] on 12/17/2023 and was made available for my review today. Findings: There is an oblique fracture of the distal fibula. No significant angulation.
Minimal posterolateral displacement of approximately 2.5 mm. There is a transverse fracture of the medial malleolus with approximately 3 mm lateral displacement. The proximal tibia and fibula are otherwise intact. The talar dome appears intact.
The talus is angled from superolateral to inferomedial. There is generalized soft tissue swelling. Incidental note is made of tiny plantar calcaneal spur and mild enthesophyte formation at the insertion of the Achilles tendon. Impression: Minimal
displacement of fractures involving the distal fibula and medial malleolus. The talus is angled from superolateral to the inferomedial. Proximal tibia and fibula are otherwise intact.
Physical Exam:
General: Well-developed, well-nourished male in no acute distress.
HEENT: NCAT, Sclera anicteric, normal conversational hearing.
Heart: No JVD.
Lungs: Clear.
MSK: Right lower extremity is in a splint. Able to wiggle all toes. Toes are pink and warm. Capillary refill is less than 2 seconds. Sensation is intact to light touch. Patient is neurovascularly intact distally.
Assessment / Plan
Assessment: 78-year-old male with a right trimalleolar ankle fracture.
Plan: The patient unfortunately sustained a right trimalleolar ankle fracture which is going to require bimalleolar open reduction internal fixation. Plan for OR today under the direction of Dr. Vernon. Surgical location marked. Risks, benefits, and
expected postoperative course reviewed with the patient and his . All questions were answered. Patient will remain NPO. Preoperative antibiotics and irrigation on-call to the OR. Orthopedic surgery will continue to follow along.
[2023-12-18] MEDS: LIPITOR 40 MG PO (08:18)
[2023-12-18] MEDS: ASPIR LOW (ENTERIC COATED) 81 MG PO (08:18)
[2023-12-18] MEDS: CYMBALTA DELAYED RELEASE 60 MG PO (08:18)
[2023-12-18] MEDS: NAMENDA 10 MG PO ×2 (08:19→20:34)
[2023-12-18] MEDS: NOVOLOG FLEXPEN-MODERATE RESISTANCE 5 UNITS SC (08:21)
--- NOTE | 2023-12-18 10:49 | CM ---
Reviewed the chart notes and spoke with the patient's spouse and daughter at the bedside. The patient was in the OR. The patient resides with his spouse in an apartment with elevator access. The patient has a cane, rolling walker, shower chair,
and home O2 through [employer]. The patient has had [facility] in the past, but no SNF. [place] [facility] Discussed with spouse and daughter possibility of the patient needing SNF/rehab after
surgery. Spouse in agreement. Referrals will need to be sent once patient is stable for PT/OT evaluation. CM continues to be available to patient/family and is monitoring medical plan for needs at discharge.
Plan: Discharge to SNF/rehab once bed found and precert obtained.
--- NOTE | 2023-12-18 11:34 | W.PN.HOSP.TC ---
Today's Communication/Plan
-
Monitor vital signs
see plan
OR today
Adjust insulin post OR
DVT prophylaxis post OR per orthopedic
Assessment / Plan
Assessment / Plan
General: Well Developed, Well Nourished and No Apparent Distress
HEENT: NormoCephalic, Moist mucous membranes and Atraumatic
Respiratory: Clear
Cardiac: S1/S2 and Regular Rhythm; No Murmur or Rub
GI: Soft, Non Tender, Non Distended and Normal Bowel Sounds; No Organomegaly
Musculoskeletal: No Edema and Other (right ankle swelling and erythema and tenderness )
Neuro: Nonfocal/grossly intact
Right distal fibula/medial malleolus fracture
-Venous ultrasound pending
-Splint to be placed
N.p.o. today for surgery
-Tylenol, Dilaudid for severe pain
RCRI score 1; patient is 6% 30-day risk of , [place] or cardiac arrest
denies any resting or ambulatory chest pain or shortness of breath. Echocardiogram recently with pulmonary artery hypertension
# Recurrent falls since recent hospitalization likely orthostatic
# History of postural hypotension
-CT head today with no acute abnormality
# Difficulty urinating
# Underlying BPH
-Urinalysis neg
-Bladder scan protocol
Hyponatremia
monitor
History of idiopathic pulmonary fibrosis/ILD on 2 L baseline
-Back to baseline
COPD
-Continue inhalers
Pulmonary hypertension
Essential hypertension
Anemia of chronic disease
-Hemoglobin stable
Anxiety
-Continue duloxetine
Dementia
-Continue memantine
GERD
-Continue omeprazole
Hyperlipidemia
-Continue statin
Type 2 diabetes
-Reduce Novolin N to 20 units daily, 14 units at night; once eating will go back to home regimen
-Moderate sliding scale
Ulcerative colitis
Essential tremor
Full code
DVT prophylaxis�SCDs left, post OR per orthopedics
I spent a total of 52 minutes with the patient or on the floor. More than 50% of this time involved counseling and coordination of care.
Anticipated Discharge: 24 - 48 hours
Subjective/Interval History
-
Date of Service: December 18, 2023
denies pain
Objective Data
-
Labs:
Laboratory Results
12/18/23
04:51
WBC 12.3 H
Hgb 9.1 L
Hct 27.8 L
Plt Count 260
Sodium 133 L
Potassium 5.0
Chloride 95 L
Carbon Dioxide 26
BUN 38 H
Creatinine 1.3
Glucose 207 H
Calcium 9.7
Total Bilirubin 0.8
AST 25
ALT 21
Alkaline Phosphatase 98
Vital Signs:
Vital Signs
Temp Pulse Resp BP Pulse Ox
98.2 F 78 18 110/58 100
12/18/23 07:39 12/18/23 07:53 12/18/23 07:53 12/18/23 07:39 12/18/23 08:22
I&O
12/17/23 12/18/23 12/19/23
06:59 06:59 06:59
Intake Total 280 / 280
Output Total 325 / 325
Balance -45 / -45
--- NOTE | 2023-12-18 12:19 | W.IMMPOSTOP ---
Surgical Immed Post Op Note
-
Primary Surgeon: Janeen
Antisqueak Filler: Jens Selby PA-C
Pre-op Diagnosis: Right ankle fracture
Post-op Diagnosis: Same
Procedure Performed: Right ankle tanesha ORIF
Anesthesia Type: Regional and sedation
Specimen / Cultures: None
Estimated Blood Loss: 2cc
Complications: None
Operative Findings: Dictated
Plan:
- NWB RLE
- ASA for DVT prophylaxis
- PT/ OT
[2023-12-18 13:34] LABS: Glucose - Point of Care 232 mg/dl (70-99)
[2023-12-18] MEDS: NOVOLOG vial 1 UNITS SC (13:38)
--- NOTE | 2023-12-18 13:55 | PTCARENOTE ---
patient able to use bedpan for formed brown stool and urinal for supriya urine. incontinent of urine saturating gown. care given
--- NOTE | 2023-12-18 15:25 | PTCARENOTE ---
Patient returned to 2 South in bed, nasal cannula maintained. Activity and weight bearing restrictions reviewed with patient. Patient and verbalize understanding. RLE with decreased movement and sensation, neurovascular assessment otherwise
intact. RLE splint and ashley wrap maintained. Bed locked in lowest position. Safety maintained. Bed alarm engaged. Call perkins within reach. Family at bedside.
[2023-12-18 18:05] LABS: Glucose - Point of Care 368 mg/dl (70-99)
[2023-12-18] MEDS: NOVOLOG FLEXPEN-MODERATE RESISTANCE 9 UNITS SC (18:06)
[2023-12-18] MEDS: ASPIRIN 325 MG PO (18:06)
[2023-12-18] MEDS: ANCEF 5 IV (18:06)
[2023-12-18 21:49] LABS: Glucose - Point of Care 426 mg/dl (70-99)
[2023-12-18 22:26] LABS: Glucose 388 mg/dl (70-99)
[2023-12-18] MEDS: HUMULIN N KWIKPEN 27 UNITS SC (22:55)
[2023-12-18] MEDS: NOVOLOG FLEXPEN 10 UNITS SC (23:01)
[2023-12-19] MEDS: ANCEF 5 IV (04:25)
--- NOTE | 2023-12-19 04:34 | DOWNTIME ---
There was a [employer] Downtime on 12/19/2023 from 0100 to 12/19/2023 at 0255. Downtime documentation of patient's care, including medication administrations, has been reconciled in the electronic record per guidelines. Refer to the
patient's paper chart under the miscellaneous tab to see printed paper medication records and downtime forms.
[2023-12-19 05:41] LABS: % Basophils 0.2 % (0-2); % Eosinophils 0.2 % (0-6); % Lymphocytes 9.2 % (20.5-51.1); % Neutrophils 82.4 % (42.2-75.2); Absolute Immature Granulocytes 0.1 10^3/uL (0-0.05); Absolute Lymphocytes 1.1 10^3/uL (1.2-3.4); Absolute Monocytes 0.9 10^3/uL (0.1-0.6); Absolute Neutrophils 10.3 10^3/uL (1.4-6.5); Hematocrit 26.2 % (39.0-52.0); Hemoglobin 8.3 g/dL (13.0-18.0); Mean Corp Hgb Conc. 31.7 g/dL (33.0-37.0); Mean Corpuscular Hgb 26.1 pg (27.0-31.0); Mean Corpuscular Volume 82.4 fL (80.0-94.0); Mean Platelet Volume 10.2 fL (7.4-10.4); Nucleated Red Blood Cells % 0 % (-); Platelet Count 248 10^3/uL (130-400); Red Blood Cell Count 3.18 10^6/uL (4.70-6.10); Red Cell Dist. Width 14.8 % (11.5-14.5); White Blood Cell Count 12.4 10^3/uL (4.8-10.8)
[2023-12-19 05:59] LABS: Blood Urea Nitrogen 41 mg/dl (9-20); Calcium 9.5 mg/dl (8.4-10.2); Carbon Dioxide 27 mmol/L (22-30); Chloride 98 mmol/L (98-107); Estimated Creatinine Clearance 46 ml/min; Glucose 106 mg/dl (70-99); Potassium 4.5 mmol/L (3.5-5.1); Sodium 134 mmol/L (135-145); eGFR > 60.00
--- NOTE | 2023-12-19 07:11 | W.PN.ORTHO ---
Today's Communication / Plan
-
POD#1 right ankle ORIF under the direction of Dr. Vernon
--Non weight bearing to right leg. Ambulate with assistive device
--PT/OT
--Continue pain management per primary team
--Maintain splint
--Recommend aspirin 325mg daily x4 weeks postop for DVT prophylaxis
--Case management consult for discharge planning
--Follow up outpatient in two weeks for wound check and xrays
--Will continue to follow along
Assessment
.
Distal Motor Intact: Yes
Dressing:
Clean, dry and intact.
Plan
.
Surgery / Date: Right ankle ORIF 12/18/23 Dr. Vernon
DVT Prophylaxis: Aspirin
Activity:
Out of bed.
PT/OT
Subjective
.
.:
Patient resting comfortably in bed this morning. He reports no pain in the ankle. He is eager to get out of bed and moving
Vital Signs and Labs
.
Vital Signs and Labs:
Lab Results
12/19/23 04:50
12/19/23 04:50
Temp Pulse Resp BP Pulse Ox
97.5 F 80 16 125/68 99
12/18/23 23:31 12/18/23 23:31 12/18/23 23:31 12/18/23 23:31 12/18/23 23:31
Physical Exam
-
RLE: splint in place. no signs of surrounding skin breakdown. slight decrease in ability to wiggle toes, likely secondary to block. sensation intact to light touch. cap refill <2secs
[2023-12-19 07:20] VITALS: BP 128/73
[2023-12-19] MEDS: PULMICORT 0.5 MG INH ×2 (07:54→20:29)
[2023-12-19 08:06] LABS: Glucose - Point of Care 118 mg/dl (70-99)
[2023-12-19 08:24] LABS: Glucose - Point of Care 228 mg/dl (70-99)
[2023-12-19] MEDS: NOVOLOG FLEXPEN-MODERATE RESISTANCE SC ×2 (08:25→13:08)
[2023-12-19] MEDS: ASPIRIN 325 MG PO (08:26)
[2023-12-19] MEDS: LIPITOR 40 MG PO (08:26)
[2023-12-19] MEDS: CYMBALTA DELAYED RELEASE 60 MG PO (08:26)
[2023-12-19] MEDS: NAMENDA 10 MG PO ×2 (08:27→19:31)
[2023-12-19] MEDS: HUMULIN N KWIKPEN 40 UNITS SC (08:27)
[2023-12-19 09:30] VITALS: BP 116/56; PULSE 74; O2SAT 97
[2023-12-19 09:31] VITALS: BP 116/59; PULSE 72; O2SAT 97
--- NOTE | 2023-12-19 10:53 | W.PN.HOSP.TC ---
Today's Communication/Plan
-
Monitor vital signs see plan
Pain control
Continue with aspirin for prophylaxis
Discharge planning
Assessment / Plan
Assessment / Plan
General: Well Developed, Well Nourished and No Apparent Distress
HEENT: NormoCephalic, Moist mucous membranes and Atraumatic
Respiratory: Clear
Cardiac: S1/S2 and Regular Rhythm; No Murmur or Rub
GI: Soft, Non Tender, Non Distended and Normal Bowel Sounds; No Organomegaly
Musculoskeletal: No Edema and Other (right ankle swelling and erythema and tenderness )
Neuro: Nonfocal/grossly intact
Right distal fibula/medial malleolus fracture
s/p right ankle ORIF
-Venous ultrasound neg for DVT
-Non weight bearing to right leg. Ambulate with assistive device
--PT/OT
Pain management
--Maintain splint
--Recommend aspirin 325mg daily x4 weeks postop for DVT prophylaxis
--Case management consult for discharge planning
--Follow up outpatient in two weeks for wound check and xrays
denies any resting or ambulatory chest pain or shortness of breath. Echocardiogram recently with pulmonary artery hypertension
# Recurrent falls since recent hospitalization likely orthostatic
# History of postural hypotension
-CT head today with no acute abnormality
# Difficulty urinating
# Underlying BPH
-Urinalysis neg
-Bladder scan protocol
Hyponatremia
monitor
History of idiopathic pulmonary fibrosis/ILD on 2 L baseline
-Back to baseline
COPD
-Continue inhalers
Pulmonary hypertension
Essential hypertension
Anemia of chronic disease
Mild acute blood loss anemia secondary to surgery
-Hemoglobin stable
Anxiety
-Continue duloxetine
Dementia
-Continue memantine
GERD
-Continue omeprazole
Hyperlipidemia
-Continue statin
Type 2 diabetes
Continue with insulin
-Moderate sliding scale
Ulcerative colitis
Essential tremor
Full code
DVT prophylaxis�SCDs left, aspirin
PT/OT recommended SNF
Anticipated Discharge: Within 24 hours
Subjective/Interval History
-
Date of Service: December 19, 2023
denies nausea
Objective Data
-
Labs:
Laboratory Results
12/19/23
04:50
WBC 12.4 H
Hgb 8.3 L
Hct 26.2 L
Plt Count 248
Sodium 134 L
Potassium 4.5
Chloride 98
Carbon Dioxide 27
BUN 41 H
Creatinine 1.2
Glucose 106 H
Calcium 9.5
Vital Signs:
Vital Signs
Temp Pulse Resp BP Pulse Ox
98 F 77 16 128/73 98
12/19/23 07:20 12/19/23 07:54 12/19/23 07:54 12/19/23 07:20 12/19/23 08:00
I&O
12/18/23 12/19/23 12/20/23
06:59 06:59 06:59
Intake Total 280 / 280 1934
Output Total 325 / 325 150 / 150
Balance -45 / -45 1784
[2023-12-19 13:09] LABS: Glucose - Point of Care 123 mg/dl (70-99)
--- NOTE | 2023-12-19 13:36 | CM ---
Reviewed the chart notes and spoke with the patient and his spouse at the bedside. [facility] has offered a bed and the patient and spouse are in agreement with placement. Referral started in [employer] #[id number]. Clinicals
faxed to [facility] ([phone]). CM continues to be available to patient/family and is monitoring medical plan for needs at discharge.
[facility] NPI# [id number]
Dr. Earnest Albert NPI# [id number]
[2023-12-19 15:27] VITALS: BP 110/52
[2023-12-19 17:33] LABS: Glucose - Point of Care 162 mg/dl (70-99)
[2023-12-19] MEDS: NOVOLOG FLEXPEN-MODERATE RESISTANCE 1 UNITS SC (18:06)
[2023-12-19] MEDS: TYLENOL 650 MG PO (19:31)
[2023-12-19 21:33] LABS: Glucose - Point of Care 208 mg/dl (70-99)
[2023-12-19] MEDS: HUMULIN N KWIKPEN 27 UNITS SC (22:07)
[2023-12-19 23:58] VITALS: BP 113/62
[2023-12-20] MEDS: TYLENOL 650 MG PO (04:33)
[2023-12-20 05:54] LABS: % Basophils 0.4 % (0-2); % Eosinophils 3.6 % (0-6); % Immature Granulocytes 1.5 % (0-0.5); % Lymphocytes 16.9 % (20.5-51.1); % Monocytes 8.9 % (1.7-9.3); % Neutrophils 68.7 % (42.2-75.2); Absolute Eosinophils 0.4 10^3/uL (0-0.7); Absolute Immature Granulocytes 0.2 10^3/uL (0-0.05); Absolute Lymphocytes 1.8 10^3/uL (1.2-3.4); Absolute Neutrophils 7.3 10^3/uL (1.4-6.5); Hematocrit 26.9 % (39.0-52.0); Hemoglobin 8.7 g/dL (13.0-18.0); Mean Corp Hgb Conc. 32.3 g/dL (33.0-37.0); Mean Corpuscular Hgb 26.6 pg (27.0-31.0); Mean Corpuscular Volume 82.3 fL (80.0-94.0); Mean Platelet Volume 10.3 fL (7.4-10.4); Nucleated Red Blood Cells % 0 % (-); Platelet Count 237 10^3/uL (130-400); Red Blood Cell Count 3.27 10^6/uL (4.70-6.10); White Blood Cell Count 10.6 10^3/uL (4.8-10.8)
[2023-12-20 06:09] LABS: Blood Urea Nitrogen 43 mg/dl (9-20); Calcium 9.8 mg/dl (8.4-10.2); Carbon Dioxide 29 mmol/L (22-30); Chloride 98 mmol/L (98-107); Estimated Creatinine Clearance 61 ml/min; Glucose 132 mg/dl (70-99); Sodium 135 mmol/L (135-145); eGFR > 60.00
[2023-12-20 07:29] VITALS: BP 111/56
[2023-12-20 07:34] LABS: Glucose - Point of Care 149 mg/dl (70-99)
[2023-12-20] MEDS: LIPITOR 40 MG PO (07:37)
[2023-12-20] MEDS: NAMENDA 10 MG PO (07:37)
[2023-12-20] MEDS: CYMBALTA DELAYED RELEASE 60 MG PO (07:37)
[2023-12-20] MEDS: ASPIRIN 325 MG PO (07:37)
[2023-12-20] MEDS: HUMULIN N KWIKPEN 40 UNITS SC (07:40)
[2023-12-20] MEDS: NOVOLOG FLEXPEN-MODERATE RESISTANCE SC (07:40)
--- NOTE | 2023-12-20 07:49 | W.PN.ORTHO ---
Today's Communication / Plan
-
PT/OT
Nonweightbearing left lower extremity
Ice with elevation to control swelling and pain
Aspirin for DVT prophylactics
Return to orthopedic office 2 weeks for skin clip removal, x-ray and application of cast
Orthopedics to sign off for now
Assessment
.
Distal Motor Intact: Yes
Dressing:
Clean, dry and intact.
Plan
.
Surgery / Date: Right ankle ORIF 12/18/23 Dr. Vernon
DVT Prophylaxis: Aspirin
Activity:
Out of bed.
PT/OT
Discharge Plan: Home w/ VN
Subjective
.
.:
Patient resting comfortably.
Vital Signs and Labs
.
Vital Signs and Labs:
Lab Results
12/20/23 05:26
12/20/23 05:26
Temp Pulse Resp BP Pulse Ox
97.9 F 70 18 111/56 2
12/20/23 07:29 12/20/23 07:29 12/20/23 07:29 12/20/23 07:29 12/20/23 07:29
[2023-12-20] MEDS: PULMICORT 0.5 MG INH (07:51)
--- NOTE | 2023-12-20 08:52 | CM ---
Addendum entered by Trini Sosa RN 12/20/23 12:55:
Updated patient's spouse and daughter via telephone of plan to discharge today by BLS.
Addendum entered by Trini Sosa RN 12/20/23 09:36:
Antony with [facility] updated on auth approval.
Call report to: [phone]
Fax report to: [phone]
Medical necessity and transport form on chart.
Original Note:
Reviewed chart notes. IMM signed. Received geovanni from Linda with [facility] [employer]. Auth obtained for [facility] (12/19-12/23); Auth # [id number]; NRD 12/23 with Harriet; fax updated clinicals to: [phone]. CM continues to be
available to patient/family and is monitoring medical plan for needs at discharge.
Plan: Discharge to [facility].
[2023-12-20 11:11] VITALS: BP 102/58; PULSE 71; O2SAT 98
[2023-12-20 11:12] VITALS: BP 102/58; PULSE 71; O2SAT 98
--- NOTE | 2023-12-20 11:13 | W.PN.HOSP.TC ---
Today's Communication/Plan
-
Monitor vital signs
see plan
Pain control
PT/OT
Discharge today
Orthopedics follow-up outpatient
Time of discharge 39 minutes
Assessment / Plan
Assessment / Plan
General: Well Developed, Well Nourished and No Apparent Distress
HEENT: NormoCephalic, Moist mucous membranes and Atraumatic
Respiratory: Clear
Cardiac: S1/S2 and Regular Rhythm; No Murmur or Rub
GI: Soft, Non Tender, Non Distended and Normal Bowel Sounds
Musculoskeletal: No Edema and Other (right ankle swelling and erythema and tenderness )
Neuro: Nonfocal/grossly intact
Right distal fibula/medial malleolus fracture
s/p right ankle ORIF
-Venous ultrasound neg for DVT
-Non weight bearing to right leg. Ambulate with assistive device
--PT/OT
Pain management
--Maintain splint
--Recommend aspirin 325mg daily x4 weeks postop for DVT prophylaxis
--Case management consult for discharge planning
--Follow up outpatient in two weeks for wound check and xrays
denies any resting or ambulatory chest pain or shortness of breath. Echocardiogram recently with pulmonary artery hypertension
# Recurrent falls since recent hospitalization likely orthostatic
# History of postural hypotension
-CT head with no acute abnormality
# Difficulty urinating
# Underlying BPH
-Urinalysis neg
-Bladder scan protocol
Hyponatremia
monitor
History of idiopathic pulmonary fibrosis/ILD on 2 L baseline
-Back to baseline
COPD
-Continue inhalers
Pulmonary hypertension
Essential hypertension
Anemia of chronic disease
Mild acute blood loss anemia secondary to surgery
-Hemoglobin stable
Anxiety
-Continue duloxetine
Dementia
-Continue memantine
GERD
-Continue omeprazole
Hyperlipidemia
-Continue statin
Type 2 diabetes
Continue with insulin
-Moderate sliding scale
Ulcerative colitis
Essential tremor
Full code
DVT prophylaxis�SCDs left, aspirin
PT/OT recommended SNF
Anticipated Discharge: Today
Subjective/Interval History
-
Date of Service: December 20, 2023
denies pain
Objective Data
-
Labs:
Laboratory Results
12/20/23
05:26
WBC 10.6
Hgb 8.7 L
Hct 26.9 L
Plt Count 237
Sodium 135
Potassium 5.0
Chloride 98
Carbon Dioxide 29
BUN 43 H
Creatinine 0.9
Glucose 132 H
Calcium 9.8
Vital Signs:
Vital Signs
Temp Pulse Resp BP Pulse Ox
97.9 F 62 16 111/56 100
12/20/23 07:29 12/20/23 07:52 12/20/23 07:52 12/20/23 07:29 12/20/23 07:52
I&O
12/19/23 12/20/23 12/21/23
06:59 06:59 06:59
Intake Total 1934 / 1934 2100 / 2099
Output Total 150 / 150 480 / 480
Balance 1785 / 1785 1620 / 1620
--- NOTE | 2023-12-20 11:21 | W.DCSUMMARY ---
Discharge Summary
Discharge Data
Date of Admission: 12/18/23
Date of Discharge: 12/20/23
-
Pending Results: No
Hospital Course
78-year-old male with past medical history of idiopathic pulmonary fibrosis on 2 L, COPD, pulmonary hypertension, essential hypertension, anemia, disease, anxiety, dementia, GERD, hyperlipidemia, type 2 diabetes mellitus, ulcerative colitis came to
the hospital after a fall with right distal fibula/medial malleolus fracture. Patient underwent surgery by orthopedics on this hospitalization and. Patient also had splint put on this hospitalization. For DVT prophylaxis he was started on full
dose aspirin for which she was instructed to continue for 4 weeks postop. Patient was also eval by physical therapy recommended SNF. Once his symptoms continue to improve, he was then discharged to SNF with instructions to follow-up with all his
physicians outpatient.
Discharge Plan
-
Patient Disposition: [facility]NF
Discharge Diagnosis/Procedures: Right distal fibula/medial malleolus fracture
s/p right ankle ORIF
Hyponatremia
Condition: Fair
Diet: As tolerated
Activity: Other activity
Additional Activity: Non weight bearing to right leg. Ambulate with assistive device
Driving Restrictions: Not until seen by your Dr
Bathing Restrictions: None
Activity Restrictions/Additional Instructions:
Non weight bearing to right leg. Ambulate with assistive device
--PT/OT
--Maintain splint
--Recommend aspirin 325mg daily x4 weeks postop for DVT prophylaxis
--Follow up outpatient in two weeks for wound check and xrays
Referrals:
Raj Borrego MD [Family Provider] - in less than 1 week
Daren Vernon MD [Active] - in one to two weeks
Prescriptions:
New
aspirin 325 mg Tablet
325 mg PO DAILY Qty: 27 0RF
Continued
atorvastatin 40 MG tablet
40 mg PO DAILY
cetirizine 10 MG tablet
10 mg PO DAILYPRN PRN (Reason: allergies)
diphenhydramine HCl [ZzzQuil] 25 mg Capsule
25 mg PO HSPRN PRN (Reason: INSOMNIA)
albuterol sulfate 90 mcg/actuation Hfa Aerosol Inhaler
2 puff INHALATION R Q4HPRN PRN (Reason: SOB)
duloxetine [Cymbalta] 60 mg Capsule,Delayed Release(Dr/Ec)
60 mg PO DAILY
memantine 10 mg Tablet
10 mg PO BID
acetaminophen [Tylenol Extra Strength] 500 mg Tablet
1,000 mg PO Q6HPRN PRN (Reason: mild pain)
Novolin N FlexPen 100 unit/mL (3 mL) Insulin Pen
40 unit SC DAILY
Novolin N FlexPen 100 unit/mL (3 mL) Insulin Pen
27 unit SC HS
omeprazole 20 mg Tablet,Delayed Release (Dr/Ec)
20 mg PO DAILYPRN PRN (Reason: gastrointestinal issue)
budesonide 0.5 mg/2 mL Suspension For Nebulization
0.5 mg inhalation R BID Qty: 60 0RF
oxymetazoline [Afrin (oxymetazoline)] 0.05 % [place],Non-Aerosol
1 spray INTRANASAL DAILYPRN PRN (Reason: nasal conjestion)
Cbd-Melatonin tablet
1 tab PO HS
Changed
insulin aspart U-100 [Novolog FlexPen U-100 Insulin] 100 unit/mL (3 mL) Insulin Pen
3 sliding scale dose SC AC Qty: 0 0RF
Held
aspirin 81 MG tablet,delayed release (DR/EC)
81 mg PO DAILY
Hold Instructions: restart when done with full dose aspirin
Discharge Orders:
Discharge Patient (As Directed); Ordered 12/20/23
Ordered By: Jani Diaz
Discharge Date and Time
Discharge Date/Time: 12/20/23 14:39
Print Language: [place] ISLAND[place]
[2023-12-20 11:49] LABS: Glucose - Point of Care 254 mg/dl (70-99)
[2023-12-20] MEDS: NOVOLOG FLEXPEN-MODERATE RESISTANCE 5 UNITS SC (13:31)
== END 2023-12-20 14:39 | DRG 493 ==
LOC: 2 SOUTH 17:38
PROVIDERS: Orthopaedic Surgery; ADMITTING PHYSICIAN Hospitalist; ATTENDING PHYSICIAN Internal Medicine; EMERGENCY PHYSICIAN Emergency Medicine; FAMILY PHYSICIAN Family Medicine; OTHER PHYSICIAN Student in an Organized Health Care Education/Training Program
PROC: 0QSJ04Z Reposition Right Fibula with Internal Fixation Device, Open Approach (ICD-10-PCS; 2023-12-18)
PROC: 0QSG04Z Reposition Right Tibia with Internal Fixation Device, Open Approach (ICD-10-PCS; 2023-12-18)
PROC: 5A0935A Assistance with Respiratory Ventilation, Less than 24 Consecutive Hours, High Flow/Velocity Cannula (ICD-10-PCS; 2023-12-19)
DX: S82.841A Displaced bimalleolar fracture of right lower leg, initial encounter for closed fracture (principal); D62 Acute posthemorrhagic anemia; E87.1 Hypo-osmolality and hyponatremia; F03.A4 Unspecified dementia, mild, with anxiety; K51.90 Ulcerative colitis, unspecified, without complications; E11.9 Type 2 diabetes mellitus without complications; E78.5 Hyperlipidemia, unspecified; J44.9 Chronic obstructive pulmonary disease, unspecified; J84.112 Idiopathic pulmonary fibrosis; I10 Essential (primary) hypertension; I27.20 Pulmonary hypertension, unspecified; D63.8 Anemia in other chronic diseases classified elsewhere; I95.1 Orthostatic hypotension; N40.1 Benign prostatic hyperplasia with lower urinary tract symptoms; R33.9 Retention of urine, unspecified; Z99.81 Dependence on supplemental oxygen; Z91.81 History of falling; W19.XXXA Unspecified fall, initial encounter; Z79.82 Long term (current) use of aspirin; Z79.4 Long term (current) use of insulin
CPT/HCPCS: 70450; 73590; 73610; 76000; 80048; 80053; 81003; 82947; 82962; 85025; 85027; 86850; 86900; 86901; 93005; 93971; 94640; 97110; 97163; 97166; 97530; 97535; 99285

== ENCOUNTER → 2025-01-30 10:51 | Outpatient (REF) | payer OTHER, MEDICAID, SELFPAY | LOC: RAD 10:51 | PROVIDERS: ATTENDING PHYSICIAN Psychiatry & Neurology Neurology | DX: R55 Syncope and collapse (principal); R63.5 Abnormal weight gain; K51.011 Ulcerative (chronic) pancolitis with rectal bleeding; R09.02 Hypoxemia | CPT/HCPCS: 70450; 71250; 74177; Q9967 ==

== ENCOUNTER → 2025-02-06 10:38 | Outpatient (REF) | payer OTHER, SELFPAY ==
--- NOTE | 2025-02-06 14:14 | EEG.RPT ---
Electroencephalogram Report
Recording
Date of EE02/06/25
Type of EEG: Routine
Length of EEG recordin minutes
Done with Video Recording: Yes
Patient Status: Outpatient
Recording Conditions: Awake and Drowsy
Hyperventilation Performed: No
Photic Stimulation Performed: Yes
Report
LESS THAN 1 HOUR REPORT
LESS THAN 1 HOUR EEG INTERPRETATION:
Mildly abnormal EEG for age due to mild diffuse bihemispheric slowing
CLINICAL CORRELATION:
This study was suggestive of mild diffuse cortical dysfunction without focal abnormality. No seizures were recorded.
Clinical correlation is advised.
METHODS:
A 21 channel digitized electroencephalogram (EEG) was performed in the clinical neurophysiology lab. The 10/20 international system of electrode placement was used with ECG and lateral/vertical eye movements recorded. [employer] quantitative EEG
analysis software was utilized.
QUALITY OF STUDY:
Fair
ELECTROENCEPHALOGRAPHER IMPRESSION(S):
Background
Low amplitude poorly organized anterior-posterior voltage gradient of mixed beta and theta activity, non-variable, bursts of generalized non-rhythmic theta activity noted
There were no significant asymmetries of background activity noted.
Sleep
Not delineated
Photic Stimulation
Failed to activate the record
ECG
Normal sinus rhythm
Abnormal EEG Activity
None
== END ==
LOC: EEG 10:38
PROVIDERS: ATTENDING PHYSICIAN Psychiatry & Neurology Neurology; FAMILY PHYSICIAN Student in an Organized Health Care Education/Training Program
DX: R55 Syncope and collapse (principal)
CPT/HCPCS: 95816

== ENCOUNTER → 2025-03-03 13:42 | Outpatient (REF) | payer OTHER, SELFPAY | LOC: RAD 13:42 | PROVIDERS: ATTENDING PHYSICIAN Specialist; FAMILY PHYSICIAN Student in an Organized Health Care Education/Training Program | DX: N20.0 Calculus of kidney (principal) | CPT/HCPCS: 74176 ==

== ENCOUNTER 2025-03-16 09:03 | Inpatient (IN) | payer OTHER, SELFPAY ==
[2025-03-16 09:30] VITALS: BP 131/68
--- NOTE | 2025-03-16 09:30 | PTCARENOTE ---
Pt admitted as a Direct Admit from [facility]. Pt is awake w/ confusion as Pt has a hx of Binswenger's Dementia. Pt denies pain at this time. Pt's at bedside. Pt oriented to person and place currently. Pt noted to have a
moisture associated groin rash, otherwise skin intact. Pt and Pt's instructed on plan of care. Pt's verbalized understanding of instructions. VSS, Pt is afebrile. Call perkins is within reach.
[2025-03-16 09:46] VITALS: BMI 22.1
--- NOTE | 2025-03-16 09:52 | CON.PUL ---
Consultation
Consultation Request
Date/Time Consultation Requested: 03/16/2025-10 AM
Date/Time Consultation Performed: 03/16/2025-10:15 AM
Requesting Provider: Dr. Nix
Performing Provider: Dr. Morris
Reason for Consultation: Preoperative clearance
Medical History
-
Chief Complaint: Renal calculi/interstitial lung disease
History of Present Illness:
79-year-old non-smoking, however, significant secondhand smoke exposure from father for 20 years with underlying ILD on chronic oxygen noted to have significant renal calculi requiring surgery/general anesthesia-pulmonary was consulted for
perioperative pulmonary risks assessment and for shortness of breath 03/16/2025. The patient states that in the last year his respiratory status has been relatively stable. He is on chronic oxygen. He is not more short of breath than usual. He
has significant shortness of breath with minimal exertion. He denies any chest pain, chest tightness, mucus production, productive cough, pleurisy, abdominal pain nausea or progressive leg swelling. His last surgery was 1 year ago and reportedly
had anesthesia without difficulties.
Past Medical History
Past Medical History: None (Interstitial lung disease-etiology unclear, not on antifibrotic's. Chronic hypoxemia on oxygen. GERD. Renal calculi. Depression. Hyperlipidemia. Migraines. Type 2 diabetes. Appendectomy. Cholecystectomy. Right
ankle fracture.)
Social History
Tobacco: Non-smoker (Significant secondhand smoke exposure-father '5 pack a day'-exposed for 20 years)
Drug: None
Personal:
Living: Snf
Occupational Exposures: No known asbestos exposure
Environmental Exposures: no known tuberculosis exposure
Family History
Family History: Reviewed & Not Pertinent (Father-gastric cancer. Mother 96 years old)
Allergies / Home Medications
Allergies
Allergy/AdvReac Type Severity Reaction Status Date / Time
house dust Allergy Unknown Verified 12/17/23 18:38
prednisone Allergy pt was Verified 12/17/23 18:37
'manic'
when given
this med
Sulfa (Sulfonamide Allergy CONFUSION Verified 12/17/23 13:46
Antibiotics)
sulfamethoxazole Allergy CONFUSION Verified 12/17/23 13:46
trimethoprim Allergy Unknown Verified 12/17/23 13:46
Home Medications
�Medication �Instructions �Recorded �Confirmed �Last Taken �Type
aspirin 81 mg tablet,delayed 81 mg PO DAILY Blood clot 07/06/21 12/17/23 12/17/23 History
release prevention/tx
Held on 12/20/23.
Instructions: restart when
done with full dose aspirin
atorvastatin 40 mg tablet 40 mg PO DAILY High cholesterol 07/06/21 12/17/23 12/17/23 History
cetirizine 10 mg tablet 10 mg PO DAILYPRN PRN allergies 07/06/21 12/17/23 1 Week Ago History
~11/22/23
albuterol sulfate 90 mcg/actuation 2 puff inhalation R Q4HPRN PRN SOB 06/23/23 12/17/23 Unknown History
aerosol inhaler
diphenhydramine HCl 25 mg capsule 25 mg PO HSPRN PRN INSOMNIA 06/23/23 12/17/23 12/16/23 History
(ZzzQuil)
duloxetine 60 mg capsule,delayed 60 mg PO DAILY Mental 06/23/23 12/17/23 12/17/23 History
release (Cymbalta) Health/Anxiety
memantine 10 mg tablet 10 mg PO BID Neurological Condition 06/24/23 12/17/23 12/17/23 History
acetaminophen 500 mg tablet 1,000 mg PO Q6HPRN PRN mild pain 11/29/23 12/17/23 12/16/23 History
(Tylenol Extra Strength)
insulin NPH isoph U-100 human 100 27 unit SC HS Diabetes 11/29/23 12/17/23 12/16/23 History
unit/mL (3 mL) subcutaneous pen
(Novolin N FlexPen)
insulin NPH isoph U-100 human 100 40 unit SC DAILY Diabetes 11/29/23 12/17/2312/16/24 History
unit/mL (3 mL) subcutaneous pen
(Novolin N FlexPen)
omeprazole 20 mg tablet,delayed 20 mg PO DAILYPRN PRN 11/29/23 12/17/23 11/29/23 History
release gastrointestinal issue
budesonide 0.5 mg/2 mL suspension 0.5 mg (2 mL) inhalation R BID 12/01/23 12/17/23 12/17/23 Rx
for nebulization Lung/breathing issues #60 mL
Cbd-Melatonin 1 tab PO HS Sleep 12/17/23 12/17/23 12/16/23 History
oxymetazoline 0.05 % nasal spray 1 spray intranasal DAILYPRN PRN 12/17/23 12/17/23 Unknown History
(Afrin (oxymetazoline)) nasal conjestion
aspirin 325 mg tablet 325 mg PO DAILY #27 tabs 12/20/23 Unknown Rx
insulin aspart U-100 100 unit/mL 3 sliding scale dose SC AC 12/20/23 12/17/23 12/17/23 Rx
(3 mL) subcutaneous pen (Novolog Diabetes #0 mL
FlexPen U-100 Insulin aspart)
Review of Systems
-
Unable to Obtain full review of systems at this time due to: Other ( per HPI)
Vitals / Labs / Diagnostic Testing
Vital Signs
Temp Pulse Resp BP Pulse Ox
97.4 F 74 16 131/68 100
03/16/25 09:30 03/16/25 09:30 03/16/25 09:30 03/16/25 09:30 03/16/25 09:30
Lab Data
03/15/25 14:53
03/15/25 06:00
Diagnostic Testing:
Physical Exam
-
Exam:
Well-nourished and well-developed in no apparent distress
HEENT-atraumatic, normocephalic
Neck-supple, no JVD, no bruit
Heart-regular rate and rhythm-no murmurs, rubs or gallops
Chest with crackles at both bases
Back without tenderness
Abdomen-soft, nontender, nondistended, no hepatosplenomegaly
Extremities-no cyanosis, clubbing, edema and good peripheral pulses
Integument-intact, no rashes, lesions or ecchymosis
Neurology-alert and oriented, nonfocal motor and sensory exam
Assessment
-
79-year-old non-smoking, however, significant secondhand smoke exposure from father for 20 years with underlying ILD on chronic oxygen noted to have significant renal calculi requiring surgery/general anesthesia-pulmonary was consulted for
perioperative pulmonary risks assessment and for shortness of breath 03/16/2025.
Multiple renal calculi for stone extraction with general anesthesia
Interstitial lung disease on chronic oxygen 2 L-currently stable
Conditions present prior to admission:
Interstitial lung disease-etiology unclear, not on antifibrotic's.
Chronic hypoxemia on oxygen.
Chronic cough-suspected microaspiration
GERD.
Renal calculi.
Depression.
Hyperlipidemia.
Migraines.
Type 2 diabetes.
Appendectomy. Cholecystectomy. Right ankle fracture.
Plan
Patient has chronic interstitial lung disease with chronic hypoxemia and has historically been quite stable for over a year without obvious progression-has not been seen in the office since 09/2024
Supplemental oxygen as needed
Aspiration precautions
Budesonide nebulizers
Nebulizers as needed
Mucolytic's
Last pulmonary function tests are summarized below
Patient is cleared for proposed surgery-moderate risk for perioperative pulmonary complications due to underlying moderate to severe interstitial lung disease
DVT prophylaxis recommended
GI prophylaxis-on pantoprazole
Early nutrition with aspiration precautions
Early mobilization
Reviewed with at the bedside
Patient last saw Dr. Grace 09/07/23 and canceled 01/22/2024-recommend [id number] in agreement-interstitial lung disease workup has been suggested to him in the past and he wanted conservative workup/therapy
Diagnostic data:
CT chest 08/22/2021-interstitial lung disease, no honeycombing
CT chest 06/25/2023-moderate interstitial fibrosis which has progressed
CT chest 01/30/2025-pulmonary fibrotic changes appear slightly progressed from June [address] abdomen and pelvis 03/03/2025-obstructive uropathy with 5 stones in the distal right ureter, severe chronic interstitial lung disease noted at the lung bases
VSE 04/09/23: premature spillage with straw and cup
Echocardiogram 11/30/2023-EF 60-65%, mild mitral stenosis, PA systolic 33
PFT 06/26/22: FVC 1.66/50%, FEV1 1.50/63%, ratio 90 here TLC 3.10/51%, DLCO 6.85/32%. Patient did have some problems with study due to dementia. When compared to July 2021, FVC has decreased from 2.02-1.66, TLC is increased from 2.78 to 3.10.
DLCO is stable. Moderate restriction with severe gas exchange defect
6MWT 09/07/23:88% with simple ambulation. Require 2 L to walk 600 feet, 93% room air, heart rate 98, dyspnea scale 1.5/10
Data Reviewed
-
PFT: Report reviewed by me
EKG: Report reviewed by me
Radiology: Image personally visualized and interpreted and Report reviewed by me
CT Scan: Image personally visualized and interpreted and Report reviewed by me
Medical Tests (Nuc Med, Echo etc): Report reviewed by me
Labs: Labs reviewed by me
Old Records: Reviewed
Total Time Spent with Patient (in minutes): 65
[2025-03-16] MEDS: PULMICORT INH (10:37)
[2025-03-16 10:42] LABS: Glucose - Point of Care 80 mg/dl (70-99)
--- NOTE | 2025-03-16 11:27 | CON.HOSP ---
Addendum entered and electronically signed by Trenton Maddox MD 03/17/25 09:21:
Dragon dictation error -Heme testicles should be read as heme test stools.
Original Note:
Family Physician
-
Family Physician: INTER[facility] UNKNOWN - PT NOT
Chief Complaint
-
Medical management of chronic diseases probably renal stones treatment
History of Present Illness
History is from the and the urologist.
Patient has progressive dementia and now not able to provide much history. He is alert and oriented to person and self only.
Has been living in a fpc because of progressive dementia for a year.
He is not sure why is in the hospital.
According to that lately been a significant weight loss and discovery of anemia. As part of evaluation he had a CT of the abdomen pelvis which showed colitis and as well as kidney stones with left ureteral stones.
He has got history of ulcerative colitis in the remote past and was quite without any treatments. Since he lives in the fpc she is not sure about his bowel habits. She thinks they may be loose stools and at times blood.
What she has noticed was patient was having difficulty with abdominal pains whenever he was urinating or having bowel movement.
Repeat CT of the abdomen pelvis showed right hydronephrosis with 5 stones in the right ureter so was brought in today electively for kidney stone treatment which are planned for tomorrow.
He has known history of pulmonary fibrosis on home O2 but no recent respiratory decompensation or flareups.
Patient denies any shortness of breath or chest pain. Denies any cough. Denies any fever or chills.
No nausea vomiting.
says they are waiting a hematology evaluation regarding anemia and weight loss.
Medical History
Past Medical History
Past Medical History: Reports COPD (Chronic hypoxic respiratory failure on 2 L of oxygen, idiopathic pulmonary fibrosis, pulmonary hypertension), Dementia, HTN and IDDM
Additional Past Medical History:
Ulcerative colitis
Past Surgical History: Reports Cholecystectomy
Social History
Unable to obtain full social history at this time due to: Dementia
Tobacco: Non-smoker
Alcohol: None
Personal:
Living: [facility]
Family History
Family History: Reviewed & Not Pertinent
Allergies / Home Medications
Allergies reflects when Allergies were last updated in [employer].
Home Medications with original date entered in [employer]
Allergy/Medication List:
Allergies
Allergy/AdvReac Type Severity Reaction Status Date / Time
house dust Allergy Unknown Verified 12/17/23 18:38
prednisone Allergy pt was Verified 12/17/23 18:37
'manic'
when given
this med
Sulfa (Sulfonamide Allergy CONFUSION Verified 12/17/23 13:46
Antibiotics)
sulfamethoxazole Allergy CONFUSION Verified 12/17/23 13:46
trimethoprim Allergy Unknown Verified 12/17/23 13:46
Home Medications
aspirin 81 mg tablet,delayed release 81 mg PO DAILY Blood clot prevention/tx 07/06/21
Held on 12/20/23. Instructions: restart when done with full dose aspirin
atorvastatin 40 mg tablet 40 mg PO DAILY High cholesterol 07/06/21
cetirizine 10 mg tablet 10 mg PO DAILYPRN PRN allergies 07/06/21
albuterol sulfate 90 mcg/actuation aerosol inhaler 2 puff inhalation R Q4HPRN PRN SOB 06/23/23
diphenhydramine HCl 25 mg capsule (ZzzQuil) 25 mg PO HSPRN PRN INSOMNIA 06/23/23
duloxetine 60 mg capsule,delayed release (Cymbalta) 60 mg PO DAILY Mental Health/Anxiety 06/23/23
memantine 10 mg tablet 10 mg PO BID Neurological Condition 06/24/23
acetaminophen 500 mg tablet (Tylenol Extra Strength) 1,000 mg PO Q6HPRN PRN mild pain 11/29/23
insulin NPH isoph U-100 human 100 unit/mL (3 mL) subcutaneous pen (Novolin N FlexPen) 27 unit SC HS Diabetes 11/29/23
insulin NPH isoph U-100 human 100 unit/mL (3 mL) subcutaneous pen (Novolin N FlexPen) 40 unit SC DAILY Diabetes 11/29/23
omeprazole 20 mg tablet,delayed release 20 mg PO DAILYPRN PRN gastrointestinal issue 11/29/23
budesonide 0.5 mg/2 mL suspension for nebulization 0.5 mg (2 mL) inhalation R BID Lung/breathing issues #60 mL 12/01/23
Cbd-Melatonin 1 tab PO HS Sleep 12/17/23
oxymetazoline 0.05 % nasal spray (Afrin (oxymetazoline)) 1 spray intranasal DAILYPRN PRN nasal conjestion 12/17/23
aspirin 325 mg tablet 325 mg PO DAILY #27 tabs 12/20/23
insulin aspart U-100 100 unit/mL (3 mL) subcutaneous pen (Novolog FlexPen U-100 Insulin aspart) 3 sliding scale dose SC AC Diabetes #0 mL 12/20/23
Review of Systems
-
Unable to obtain full review of systems at this time due to: Dementia
Physical Exam
Vital Signs
Vital Signs
Temp Pulse Resp BP Pulse Ox
97.4 F 74 16 131/68 100
03/16/25 09:30 03/16/25 09:30 03/16/25 09:30 03/16/25 09:30 03/16/25 09:30
Physical Exam
General: No Apparent Distress
HEENT: Moist Mucous Membranes
Respiratory: Rales (More focal on the right base; also heard in left basilar area) and Non Labored Respirations; Negative Wheezes, Rhonchi or Accessory Resp Muscle Use
Cardiac: S1/S2 and Irregular Rhythm; Negative Tachycardia
GI: Soft, Non Tender, Non Distended and Normal Bowel Sounds
Neuro: Awake, Alert, Oriented and No Motor Deficits; Negative Slurred Speech
Psych: Calm and Confused; Negative Agitated
Laboratory Results
-
Laboratory Results
03/15/25 06:00
Impression / Plan
-
Right ureteral obstructing stone with right hydronephrosis-hard historian because of dementia-denies any abdominal pain, afebrile.
OR in AM per urology
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
No evidence of acute exacerbation. No reactive airway disease. Stable on 2 L.
Will obtain a two-view chest x-ray preop for risk assessment.
No history of chronic hypercapnia. Will get a VBG for preop assessment.
Continue with oxygen and inhaler therapy. No indication for steroids.
History of essential hypertension-not on any medication
Blood pressure under goal
Recent discovery of sigmoid colon/rectal colitis-unclear if any change in bowel habits. History of anemia noted. Check heme test stools. Abdomen soft. Will follow-up bowel habits while in hospital. Need follow-up with GI as an outpatient.
Anemia-chronic normocytic anemia noted. Check preop labs. Heme testicles.
Diabetes mellitus type 2 on insulin-continue with his home insulin regimen and follow Accu-Cheks
Discussed with the at bedside. Thank you for your consultation and we will continue to follow along with you.
[2025-03-16 12:03] LABS: Venous Blood Gas B.E. 4.3 mmol/L (-4 to +4); Venous Blood Gas O2 Sat % 82.5 %
[2025-03-16 12:03] LABS: Hematocrit 28.2 % (39.0-52.0); Hemoglobin 8.5 g/dL (13.0-18.0); Mean Corp Hgb Conc. 30.1 g/dL (33.0-37.0); Mean Corpuscular Volume 82.2 fL (80.0-94.0); Platelet Count 404 10^3/uL (130-400); Red Cell Dist. Width 16.0 % (11.5-14.5)
[2025-03-16] MEDS: NOVOLOG FLEXPEN SC ×6 (13:40→13:46)
[2025-03-16] MEDS: LEVAQUIN IV ×2 (13:44)
[2025-03-16] MEDS: NOVOLOG FLEXPEN 3 UNITS SC ×2 (13:47→18:03)
[2025-03-16] MEDS: HUMULIN N KWIKPEN SC ×2 (13:47)
[2025-03-16] MEDS: LEVAQUIN 100 IV (13:50)
[2025-03-16] MEDS: NAMENDA 10 MG PO ×2 (14:40→21:46)
[2025-03-16] MEDS: ASPIR LOW (ENTERIC COATED) 81 MG PO (14:40)
[2025-03-16] MEDS: LIPITOR 40 MG PO (14:40)
[2025-03-16] MEDS: CYMBALTA DELAYED RELEASE 60 MG PO (14:40)
[2025-03-16 15:15] VITALS: BP 133/67
[2025-03-16] MEDS: STERILE WATER FOR INJECTION 10 ML IV (15:56)
[2025-03-16] MEDS: ROCEPHIN 1000 MG IV (15:56)
[2025-03-16] MEDS: MORPHINE SULFATE 4 MG IV (15:56)
[2025-03-16 17:48] LABS: Glucose - Point of Care 134 mg/dl (70-99)
[2025-03-16] MEDS: NOVOLOG FLEXPEN-LOW RESISTANCE SC (18:04)
[2025-03-16] MEDS: PULMICORT 0.5 MG INH (20:20)
[2025-03-16 21:46] LABS: Glucose - Point of Care 141 mg/dl (70-99)
[2025-03-16] MEDS: MELATONIN 5 MG PO (21:46)
[2025-03-16] MEDS: HUMULIN N KWIKPEN 27 UNITS SC (21:46)
[2025-03-16 23:15] VITALS: BP 127/60
[2025-03-17] VITALS (12 sets, daily range): BP systolic 106–130; BP diastolic 62–77
[2025-03-17 06:30] LABS: Hematocrit 25.3 % (39.0-52.0); Hemoglobin 7.8 g/dL (13.0-18.0); Mean Corp Hgb Conc. 30.8 g/dL (33.0-37.0); Mean Corpuscular Volume 81.4 fL (80.0-94.0); Platelet Count 369 10^3/uL (130-400); Red Cell Dist. Width 15.9 % (11.5-14.5)
[2025-03-17 07:08] LABS: ALT (SGPT) 15 U/L (0-50); AST (SGOT) 20 U/L (17-59); Albumin 3.5 g/dl (3.5-5.0); Alkaline Phosphatase 95 U/L (38-126); Blood Urea Nitrogen 29 mg/dl (9-20); Calcium 9.6 mg/dl (8.4-10.2); Carbon Dioxide 28 mmol/L (22-30); Chloride 102 mmol/L (98-107); Estimated Creatinine Clearance 53 ml/min; Glucose 35 mg/dl (70-99); Potassium 4.6 mmol/L (3.5-5.1); Sodium 136 mmol/L (135-145); Total Protein 6.1 g/dl (6.3-8.2); eGFR > 60.00
[2025-03-17] MEDS: PULMICORT 0.5 MG INH (08:02)
[2025-03-17 09:05] LABS: Glycohemoglobin (HgbA1c) 6.4 % (4.0-5.6)
[2025-03-17] MEDS: NOVOLOG FLEXPEN-LOW RESISTANCE SC ×3 (09:14→16:56)
[2025-03-17] MEDS: NOVOLOG FLEXPEN SC ×3 (09:14→16:54)
[2025-03-17 09:46] LABS: Reticulocyte Count 2.0 % (0.4-2.8)
--- NOTE | 2025-03-17 09:47 | W.PN.HOSP.TC ---
Today's Communication/Plan
-
Transfuse 1 unit of PRBC
Check iron studies, heme test stools
Hold all insulin and follow Accu-Cheks
OR today
Assessment / Plan
Assessment / Plan
Right ureteral obstructing stone with right hydronephrosis-hard historian because of dementia-denies any abdominal pain, afebrile.
OR today per urology
creatinine is okay.
Leukocytosis-afebrile. Nontoxic. Difficult historian to elicit for lower tract symptoms. Chest x-ray without any acute superimposed. Chest CT 2 weeks ago showed obstructive uropathy but no obvious evidence of pyelonephritis. In view of
complicated nephrolithiasis and hydronephrosis will cover for urinary tract infection. Check a UA. Patient started on Levaquin by urology which I would continue.
Severe anemia.
Patient has chronic anemia-according to going to see hematology for evaluation next week. No history of GI bleed.
In view of severe nature of anemia, pulmonary fibrosis requiring oxygen, and the need of surgery I feel that he would benefit blood transfusion of 1 unit of PRBC. Discussed blood transfusion indications and risks with this and consent
obtained. Will transfuse 1 unit of PRBC today. Check iron stores. Check heme test stools.
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
No evidence of acute exacerbation. No reactive airway disease. Stable on 2 L.
Will obtain a two-view chest x-ray preop for risk assessment.
No history of chronic hypercapnia. Will get a VBG for preop assessment.
Continue with oxygen and inhaler therapy. No indication for steroids.
Pulmonary following
History of essential hypertension-not on any medication
Blood pressure under goal
Recent discovery of sigmoid colon/rectal colitis-unclear if any change in bowel habits. History of anemia noted. Check heme test stools. Abdomen soft. Will follow-up bowel habits while in hospital. Need follow-up with GI as an outpatient.
Diabetes mellitus type 2 on insulin-continue with his home insulin regimen and follow Accu-Cheks
Hypoglycemia this morning noted-repeat Accu-Cheks show improvement. Insulin regimen is currently on hold as he is NPO. Continue to follow Accu-Cheks and adjust insulin as needed.
Total time spent on today's encounter was 52 minutes which included time spent in counseling the patient/family regarding diagnosis and treatment plan as listed above, goals of care, and symptom management. Case was discussed with nursing staff,
specialists, and care coordinators/case management. All labs and imaging personally reviewed by me. Remainder the time spent in detailed review of previous records, lab data, imaging, and other medical provider documentation.
Portions of this chart may have been created with voice recognition software. Occasional wrong word or 'sound alike' substitutions may have occurred due to the inherent limitations of voice recognition software.
Anticipated Discharge: > 48 hours
Subjective/Interval History
-
Date of Service: March 17, 2025
Pleasantly confused. Not aware and is going for surgery today.
Denies any shortness of breath. Stable on 2 L of oxygen.
Denies any nausea vomiting. Denies any chest pain.
Objective Data
-
Labs:
Laboratory Results
03/17/25
06:11
WBC 12.8 H
Hgb 7.8 L
Hct 25.3 L
Plt Count 369
Sodium 136
Potassium 4.6
Chloride 102
Carbon Dioxide 28
BUN 29 H
Creatinine 1.0
Glucose 35 L*
Calcium 9.6
Total Bilirubin 0.3
AST 20
ALT 15
Alkaline Phosphatase 95
Vital Signs:
Vital Signs
Temp Pulse Resp BP Pulse Ox
97.6 F 81 16 115/62 98
03/17/25 07:35 03/17/25 08:04 03/17/25 08:04 03/17/25 07:35 03/17/25 08:04
I&O
1003/17/25 03/18/25
06:59 06:59 06:59
Intake Total 360 / 360
Balance 360 / 360
Physical Exam
-
Respiratory: Crackles (right more than left base) and Non Labored Respirations; Negative Wheezes or Accessory Resp Muscle Use
Cardiac: Regular Rhythm and S1/S2; Negative Tachycardic
GI: Soft and Nontender
Neuro: AO x 3
Psych: Calm and Confused; Negative Agitated
Data Reviewed
-
Labs: Labs Reviewed by me
--- NOTE | 2025-03-17 09:49 | W.PN.PUL.V3 ---
Today's Communication / Plan
-
Continue nebulizers
Supplemental oxygen
Moderate risk for perioperative pulmonary complications-cleared for surgery from a pulmonary perspective
Assessment
-
79-year-old non-smoking, however, significant secondhand smoke exposure from father for 20 years with underlying ILD on chronic oxygen noted to have significant renal calculi requiring surgery/general anesthesia-pulmonary was consulted for
perioperative pulmonary risks assessment and for shortness of breath 03/16/2025.
Multiple renal calculi for stone extraction with general anesthesia
Interstitial lung disease on chronic oxygen 2 L-currently stable
Conditions present prior to admission:
Interstitial lung disease-etiology unclear, not on antifibrotic's.
Chronic hypoxemia on oxygen.
Chronic cough-suspected microaspiration
GERD.
Renal calculi.
Depression.
Hyperlipidemia.
Migraines.
Type 2 diabetes.
Appendectomy. Cholecystectomy. Right ankle fracture.
Plan
Patient has chronic interstitial lung disease with chronic hypoxemia and has historically been quite stable for over a year without obvious progression-has not been seen in the office since 09/2024
Supplemental oxygen as needed
Aspiration precautions
Budesonide nebulizers
Nebulizers as needed
Mucolytic's
Systemic steroids not indicated
Last pulmonary function tests are summarized below
Patient is cleared for proposed surgery-moderate risk for perioperative pulmonary complications due to underlying moderate to severe interstitial lung disease
DVT prophylaxis recommended
GI prophylaxis-on pantoprazole
Early nutrition with aspiration precautions
Early mobilization
Reviewed with at the bedside on 03/16/2025
Patient last saw Dr. Grace 09/07/23 and canceled 01/22/2024-recommend [id number] in agreement-interstitial lung disease workup has been suggested to him in the past and he wanted conservative workup/therapy
Diagnostic data:
CT chest 08/22/2021-interstitial lung disease, no honeycombing
CT chest 06/25/2023-moderate interstitial fibrosis which has progressed
CT chest 01/30/2025-pulmonary fibrotic changes appear slightly progressed from June [address] abdomen and pelvis 03/03/2025-obstructive uropathy with 5 stones in the distal right ureter, severe chronic interstitial lung disease noted at the lung bases
VSE 04/09/23: premature spillage with straw and cup
Echocardiogram 11/30/2023-EF 60-65%, mild mitral stenosis, PA systolic 33
PFT 06/26/22: FVC 1.66/50%, FEV1 1.50/63%, ratio 90 here TLC 3.10/51%, DLCO 6.85/32%. Patient did have some problems with study due to dementia. When compared to July 2021, FVC has decreased from 2.02-1.66, TLC is increased from 2.78 to 3.10.
DLCO is stable. Moderate restriction with severe gas exchange defect
6MWT 09/07/23:88% with simple ambulation. Require 2 L to walk 600 feet, 93% room air, heart rate 98, dyspnea scale 1.5/10
Subjective Data
-
Date of Service:
Date of Service: March 17, 2025
Chief Complaint: Pulmonary Follow Up
Subjective:
Episode of hypoglycemia, no complaints of shortness of breath, feels like he is at his baseline, does not complain chest congestion or productive cough, no abdominal pain
Review of Systems
General: Other (Per HPI)
Objective Data
Data Reviewed
Vital Signs / I&O:
Vital Signs
Temp Pulse Resp BP Pulse Ox
97.6 F 81 16 115/62 98
03/17/25 07:35 03/17/25 08:04 03/17/25 08:04 03/17/25 07:35 03/17/25 08:04
Intake and Output
03/16/25 03/17/25 03/18/25
06:59 06:59 06:59
Intake Total 360 / 360
Balance 360 / 360
SaO2: 98
Nasal Cannula flow liters per minute: 2
Physical Exam
General: Respiratory Distress (n) and Comfortable
HEENT: Normocephalic, Anicteric and Moist Mucous Membranes
Cardiovascular: Regular Rhythm
Respiratory: Wheeze (n), Crackles, Rhonchi (n), Non-Labored Respirations, Accessory Resp Muscle Use (n) and Stridor (n)
GI: Soft, Non Distended and Non Tender
Neurology: Awake, Alert and No Motor Deficits
Skin: Warm, Good Color, Cyanosis (n), Jaundice (n) and Rash (n)
Labs/Micro/Reports
Lab Data
03/17/25 06:11
03/17/25 06:11
[2025-03-17] MEDS: NAMENDA 10 MG PO ×2 (09:58→21:33)
[2025-03-17] MEDS: TYLENOL 1000 MG PO ×2 (09:59→21:36)
[2025-03-17] MEDS: CYMBALTA DELAYED RELEASE 60 MG PO (10:00)
[2025-03-17] MEDS: LIPITOR 40 MG PO (10:01)
[2025-03-17] MEDS: ASPIR LOW (ENTERIC COATED) 81 MG PO (10:01)
[2025-03-17 10:03] LABS: Iron 23 ug/dl (49-181)
--- NOTE | 2025-03-17 10:03 | CM ---
Initial assessment competed. Patient is a LTC resident at [facility]. CM received PLOF from nurse, Lorelei.
Patient is alert and oriented x 1 at baseline. Assisted w/ ambulation, ADLs and personal care. Patient is an assist x 1 for transfers, sit to stand transfer. Patient works w/ PT 4 times a week. Patient is full code at facility.
PCP: Dr. Tinoco
Pharmacy: [facility]
Plan: Return to [facility]
[2025-03-17 10:15] LABS: Total Iron Binding Capacity 289 ug/dl (261-462)
[2025-03-17 10:49] LABS: Glucose - Point of Care 76 mg/dl (70-99)
[2025-03-17 10:49] LABS: Glucose - Point of Care 124 mg/dl (70-99)
[2025-03-17 11:48] LABS: Glucose - Point of Care 137 mg/dl (70-99)
[2025-03-17 12:49] LABS: Ferritin 21.7 ng/ml (17.9-464.0)
[2025-03-17] MEDS: LEVAQUIN 100 IV (15:15)
[2025-03-17 18:19] LABS: Glucose - Point of Care 107 mg/dl (70-99)
--- NOTE | 2025-03-17 19:06 | W.SUR.POST ---
Surgical Immediate Post Op
Note
Pre Op Diagnosis:rt ureteral stones with obstruction
Post Op Diagnosis: same
Procedure Performed: rt ureteroscpy laser extraction stones
Primary Surgeonflashner:
Secondary Surgeons:
Anesthesia: general zarate
Estimated Blood Loss: 1
Fluids: nss
Drains/Shunts: 18 fr levine
Specimens/Cultures:0
Doppler/Duplex/Angio (Y/N):
Complications: 0
Operative Findings: multipl lg 7 amn 8 mm matthew rt uretr lasered removed no stnet
[2025-03-17 19:23] LABS: Glucose - Point of Care 141 mg/dl (70-99)
[2025-03-17] MEDS: PULMICORT INH (20:00)
[2025-03-17] MEDS: MELATONIN 5 MG PO (21:33)
[2025-03-17 21:42] LABS: Glucose - Point of Care 125 mg/dl (70-99)
[2025-03-18] VITALS (7 sets, daily range): BP systolic 110–129; BP diastolic 58–81
--- NOTE | 2025-03-18 01:05 | PTCARENOTE ---
occult stool performed, positive results, recorded in chart.
[2025-03-18] MEDS: PERCOCET 5/325 1 TABLET PO (02:17)
[2025-03-18 02:20] LABS: Glucose - Point of Care 143 mg/dl (70-99)
--- NOTE | 2025-03-18 02:25 | PTCARENOTE ---
Pt appears not comfortable with levine in place and is moving in bed causing bleeding from insertion site. Levine removed @ this time for comfort per MD orders.
[2025-03-18 06:14] LABS: Hematocrit 29.8 % (39.0-52.0); Hemoglobin 9.0 g/dL (13.0-18.0); Mean Corp Hgb Conc. 30.2 g/dL (33.0-37.0); Mean Corpuscular Volume 84.2 fL (80.0-94.0); Platelet Count 302 10^3/uL (130-400); Red Cell Dist. Width 15.4 % (11.5-14.5)
[2025-03-18 06:35] LABS: Blood Urea Nitrogen 26 mg/dl (9-20); Calcium 9.2 mg/dl (8.4-10.2); Carbon Dioxide 31 mmol/L (22-30); Chloride 98 mmol/L (98-107); Estimated Creatinine Clearance 53 ml/min; Glucose 116 mg/dl (70-99); Potassium 4.9 mmol/L (3.5-5.1); Sodium 134 mmol/L (135-145); eGFR > 60.00
[2025-03-18] MEDS: NOVOLOG FLEXPEN SC (07:30)
[2025-03-18] MEDS: PULMICORT 0.5 MG INH ×2 (07:38→19:23)
--- NOTE | 2025-03-18 08:00 | W.DCSUMMARY ---
Discharge Summary
Discharge Data
Date of Admission: 03/16/25
Date of Discharge: 03/18/25
Total time spent discharging patient (in min): 45
-
Pending Results: No
Hospital Course
the was a early to help perioperative care He had his diabetes and lung disease managed and was found to be anemic He was transfused he underwent successful laser of urertal stones He remained d stable over night and is being discharged
Discharge Plan
-
Patient Disposition: [facility]pc/SNF
Discharge Diagnosis/Procedures: rt yuretreal stones with obstruction acute anemia and chronicanemia iddm and interstial lung disease
Condition: Good
Referrals:
UNKNOWN - PT NOT,INTERVIEWE [Family Provider]
Prescriptions:
Continued
aspirin 81 MG tablet,delayed release (DR/EC)
81 mg PO DAILY
atorvastatin 40 MG tablet
40 mg PO DAILY
cetirizine 10 MG tablet
10 mg PO DAILYPRN PRN (Reason: allergies)
diphenhydramine HCl [ZzzQuil] 25 mg Capsule
25 mg PO HSPRN PRN (Reason: INSOMNIA)
albuterol sulfate 90 mcg/actuation Hfa Aerosol Inhaler
2 puff INHALATION R Q4HPRN PRN (Reason: SOB)
duloxetine [Cymbalta] 60 mg Capsule,Delayed Release(Dr/Ec)
60 mg PO DAILY
memantine 10 mg Tablet
10 mg PO BID
acetaminophen [Tylenol Extra Strength] 500 mg Tablet
1,000 mg PO Q6HPRN PRN (Reason: mild pain)
Novolin N FlexPen 100 unit/mL (3 mL) Insulin Pen
40 unit SC DAILY
Novolin N FlexPen 100 unit/mL (3 mL) Insulin Pen
27 unit SC HS
omeprazole 20 mg Tablet,Delayed Release (Dr/Ec)
20 mg PO DAILYPRN PRN (Reason: gastrointestinal issue)
budesonide 0.5 mg/2 mL Suspension For Nebulization
0.5 mg inhalation R BID Qty: 60 0RF
oxymetazoline [Afrin (oxymetazoline)] 0.05 % Fabius,Non-Aerosol
1 spray INTRANASAL DAILYPRN PRN (Reason: nasal conjestion)
Cbd-Melatonin tablet
1 tab PO HS
aspirin 325 mg Tablet
325 mg PO DAILY Qty: 27 0RF
insulin aspart U-100 [Novolog FlexPen U-100 Insulin] 100 unit/mL (3 mL) Insulin Pen
3 sliding scale dose SC AC Qty: 0 0RF
Discharge Date and Time
Print Language: ZAMBIAN
[2025-03-18 08:41] LABS: Glucose - Point of Care 130 mg/dl (70-99)
[2025-03-18] MEDS: NOVOLOG FLEXPEN-LOW RESISTANCE SC ×3 (08:50→18:38)
[2025-03-18] MEDS: LIPITOR 40 MG PO (08:51)
[2025-03-18] MEDS: CYMBALTA DELAYED RELEASE 60 MG PO (08:51)
[2025-03-18] MEDS: ASPIR LOW (ENTERIC COATED) 81 MG PO (08:51)
[2025-03-18] MEDS: NAMENDA 10 MG PO ×2 (08:51→21:27)
--- NOTE | 2025-03-18 09:47 | W.PN.PUL.V3 ---
Today's Communication / Plan
-
No change in supplemental oxygen
Increase activity
Tolerated surgery well
Stable from a pulmonary perspective for proposed discharge
Outpatient pulmonary follow-up
Assessment
-
79-year-old non-smoking, however, significant secondhand smoke exposure from father for 20 years with underlying ILD on chronic oxygen noted to have significant renal calculi requiring surgery/general anesthesia-pulmonary was consulted for
perioperative pulmonary risks assessment and for shortness of breath 03/16/2025.
Multiple renal calculi for stone extraction with general anesthesia
Interstitial lung disease on chronic oxygen 2 L-currently stable
Conditions present prior to admission:
Interstitial lung disease-etiology unclear, not on antifibrotic's.
Chronic hypoxemia on oxygen.
Chronic cough-suspected microaspiration
GERD.
Renal calculi.
Depression.
Hyperlipidemia.
Migraines.
Type 2 diabetes.
Appendectomy. Cholecystectomy. Right ankle fracture.
Plan
Patient has chronic interstitial lung disease with chronic hypoxemia and has historically been quite stable for over a year without obvious progression-has not been seen in the office since 09/2024
Supplemental oxygen as needed-has not needed increased FiO2 requirements from baseline
Aspiration precautions
Budesonide nebulizers
Nebulizers as needed
Mucolytic's
Systemic steroids not indicated
Last pulmonary function tests are summarized below
Patient is cleared for proposed surgery-moderate risk for perioperative pulmonary complications due to underlying moderate to severe interstitial lung disease
Patient underwent right uteroscopy, laser lithotripsy of stone, basket extraction of stones in the bladder 03/17/2025
DVT prophylaxis recommended
GI prophylaxis-on pantoprazole
Early nutrition with aspiration precautions
Early mobilization
Reviewed with at the bedside on 03/16/2025
Patient stable from a pulmonary perspective for proposed discharge
Patient last saw Dr. Grace 09/07/23 and canceled 01/22/2024-recommend [id number] in agreement-interstitial lung disease workup has been suggested to him in the past and he wanted conservative workup/therapy
Diagnostic data:
CT chest 08/22/2021-interstitial lung disease, no honeycombing
CT chest 06/25/2023-moderate interstitial fibrosis which has progressed
CT chest 01/30/2025-pulmonary fibrotic changes appear slightly progressed from June [address] abdomen and pelvis 03/03/2025-obstructive uropathy with 5 stones in the distal right ureter, severe chronic interstitial lung disease noted at the lung bases
VSE 04/09/23: premature spillage with straw and cup
Echocardiogram 11/30/2023-EF 60-65%, mild mitral stenosis, PA systolic 33
PFT 06/26/22: FVC 1.66/50%, FEV1 1.50/63%, ratio 90 here TLC 3.10/51%, DLCO 6.85/32%. Patient did have some problems with study due to dementia. When compared to July 2021, FVC has decreased from 2.02-1.66, TLC is increased from 2.78 to 3.10.
DLCO is stable. Moderate restriction with severe gas exchange defect
6MWT 09/07/23:88% with simple ambulation. Require 2 L to walk 600 feet, 93% room air, heart rate 98, dyspnea scale 1.5/10
Subjective Data
-
Date of Service:
Date of Service: March 18, 2025
Chief Complaint: Pulmonary Follow Up and Dyspnea Follow Up
Subjective:
Tolerated surgery, no complaints of shortness of breath, chest congestion, productive cough or abdominal pain
Review of Systems
General: Other (Per HPI)
Objective Data
Data Reviewed
Vital Signs / I&O:
Vital Signs
Temp Pulse Resp BP Pulse Ox
97.7 F 86 18 118/69 97
03/18/25 07:50 03/18/25 07:50 03/18/25 07:50 03/18/25 07:50 03/18/25 07:50
Intake and Output
03/17/25 03/18/2503/19/25
06:59 06:59 06:59
Intake Total 360 / 360 730 / 730
Output Total 750 / 750
Balance 360 / 360 -20 / -20
SaO2: 97
Nasal Cannula flow liters per minute: 2
Physical Exam
General: Respiratory Distress (n) and Comfortable
HEENT: Normocephalic, Anicteric and Moist Mucous Membranes
Cardiovascular: Regular Rhythm
Respiratory: Wheeze (n), Crackles, Rhonchi (n), Non-Labored Respirations, Accessory Resp Muscle Use (n) and Stridor (n)
GI: Soft, Non Distended and Non Tender
Neurology: Awake, Alert and No Motor Deficits
Skin: Warm, Good Color, Cyanosis (n), Jaundice (n) and Rash (n)
Labs/Micro/Reports
Lab Data
03/18/25 05:44
03/18/25 05:44
Microbiology
03/17/25 06:11 Nose MRSA Screen - Final
No Methicillin Resistant Staphylococcus aureus isolated.
--- NOTE | 2025-03-18 10:16 | W.PN.HOSP.TC ---
Today's Communication/Plan
-
GI consult
IV iron
Follow H&H
Hold on discharge
Assessment / Plan
Assessment / Plan
Right ureteral obstructing stone with right hydronephrosis
creatinine is okay.
Status post cystoscopy and laser treatment of right ureteral stones
Stable urologically for discharge
Leukocytosis-afebrile. Nontoxic. Difficult historian to elicit for lower tract symptoms. Chest x-ray without any acute superimposed. Chest CT 2 weeks ago showed obstructive uropathy but no obvious evidence of pyelonephritis. In view of
complicated nephrolithiasis and hydronephrosis will cover for urinary tract infection. Patient started on Levaquin by urology which I would continue. UA pending.
Severe anemia.
Patient has chronic anemia-according to going to see hematology for evaluation next week. No history of GI bleed.
In view of severe nature of anemia, pulmonary fibrosis requiring oxygen, and the need of surgery I feel that he would benefit blood transfusion of 1 unit of PRBC. Transfused 1 unit of PRBC 03/17.
Heme test positive so cannot rule out chronic GI blood loss. He also has colitis on the recent CT.
Iron studies suggest iron deficiency probably from GI blood loss. Start on IV Venofer
Left-sided lower abdominal pain with proctocolitis on recent abdominal pelvis CT
History of ulcerative colitis
Rule out reactivation of ulcerative colitis versus other forms of colitis
In view of symptoms, heme positive stools, and anemia will ask for inpatient GI eval
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
No evidence of acute exacerbation. No reactive airway disease. Stable on 2 L.
Will obtain a two-view chest x-ray preop for risk assessment.
No history of chronic hypercapnia. Will get a VBG for preop assessment.
Continue with oxygen and inhaler therapy. No indication for steroids.
Pulmonary following
History of essential hypertension-not on any medication
Blood pressure under goal
Diabetes mellitus type 2 on insulin-continue with his home insulin regimen and follow Accu-Cheks
Low blood sugars noted here. Hold his NovoLog and on follow Accu-Cheks. His hemoglobin A1c is 6.4. Might need to down titrate his home insulin regimen..
Discussed with .
Discussed with GI
Total time spent on today's encounter was 52 minutes which included time spent in counseling the patient/family regarding diagnosis and treatment plan as listed above, goals of care, and symptom management. Case was discussed with nursing staff,
specialists, and care coordinators/case management. All labs and imaging personally reviewed by me. Remainder the time spent in detailed review of previous records, lab data, imaging, and other medical provider documentation.
Portions of this chart may have been created with voice recognition software. Occasional wrong word or 'sound alike' substitutions may have occurred due to the inherent limitations of voice recognition software.
Anticipated Discharge: 24 - 48 hours
Subjective/Interval History
-
Date of Service: March 18, 2025
Patient pleasantly confused. is concerned about the left-sided abdominal pain which is going on for few days now. He does endorse left-sided lower abdominal pain and points to left lower quadrant.
He had 5 loose stools seen here.
There was blood in the stool when checked yesterday.
He has a history of ulcerative colitis in the remote past. He has not had any colonoscopies in the recent past.
He also has 30 pound weight loss per .
No nausea vomiting. Tolerating diet.
Denies any dysuria. No fever or chills. Denies shortness of breath.
Objective Data
-
Labs:
Laboratory Results
03/18/25
05:44
WBC 11.9 H
Hgb 9.0 L
Hct 29.8 L
Plt Count 302
Sodium 134 L
Potassium 4.9
Chloride 98
Carbon Dioxide 31 H
BUN 26 H
Creatinine 1.0
Glucose 116 H
Calcium 9.2
Vital Signs:
Vital Signs
Temp Pulse Resp BP Pulse Ox
97.7 F 86 18 118/69 97
03/18/25 07:50 03/18/25 07:50 03/18/25 07:50 03/18/25 07:50 03/18/25 09:47
I&O
03/17/25 03/18/25 03/19/25
06:59 06:59 06:59
Intake Total 360 / 360 730 / 730
Output Total 750 / 750
Balance 360 / 360 -20 / -20
Physical Exam
-
General: Comfortable
Respiratory: Crackles (Right more than left base. No wheeze) and Non Labored Respirations; Negative Accessory Resp Muscle Use
Cardiac: Regular Rhythm and S1/S2
GI: Soft, Nondistended, Normal Bowel Sounds and Tender (Discomfort in the left lower quadrant, reproducible)
Neuro: Awake, Alert and Oriented (Self and person)
Psych: Calm and Confused; Negative Agitated
Data Reviewed
-
Labs: Labs Reviewed by me
--- NOTE | 2025-03-18 10:29 | CON.GI ---
Addendum entered and electronically signed by Lucy Cleveland MD 03/18/25 18:29:
I saw and examined the patient.
The CASTING TESTER or PA's note was reviewed and I agree with the note.
Comment: 79-year-old male with history of idiopathic pulmonary fibrosis, COPD, on home oxygen, dementia who was admitted to the hospital with abdominal pain, CT scan showing multiple distal ureteral stones now status post lithotripsy but also had
been having diarrhea and rectal bleeding and GI consult called in. Reviewing records, history of ulcerative colitis since age 16, as per , he was not resolved within but did not tolerated, unclear if he was ever given steroids but for
intermittent rectal bleeding, he used to use Preparation H. Reviewed colonoscopy from 2003, proctitis noted on biopsies in the rectum but biopsies from the left colon unremarkable, colonoscopy in 2008 and 2009 showed no evidence of inflammation in
the colon and biopsies without any evidence of active or chronic colitis. Patient has not been on any medication for 20+ years. He does report left lower quadrant abdominal discomfort with multiple episodes of loose stool, sometimes with blood.
Hemoglobin since 2021 has been between 9.0 and 12 and more recently 7.8-9.0.
Reviewed CT scan of the abdomen and pelvis from February 2025 that showed left-sided colitis.
Rectal exam showed heme positive dark red stool. ? Friable area in the rectum on palpation by CASTING TESTER
- Left lower quadrant abdominal pain, proctosigmoiditis on previous CT scan with history of underlying ulcerative proctitis
Plan for flexible sigmoidoscopy tomorrow, procedure reviewed with patient and as well and they are agreeable. Consent already obtained from patient's with patient's history of dementia
Agree with IV iron
Will follow-up on the above testing
Original Note:
Consultation
-
Date/Time Consultation Requested: 03/18/25 1022
Date/Time Consultation Performed: 03/18/25 1030
Requesting Provider: Trenton Maddox MD
Performing Provider: MARISOL Shen, Lucy Cleveland MD
Reason for Consultation: anemia
Medical History
Chief Complaint / HPI
Chief Complaint: lower abdominal pain, rectal bleeding
History of Present Illness:
Pt is a 79yo with hx COPD, idiopathic pulm fibrosis, HTN, IDDM, dementia, pulm HTN, ulcerative colitis, iritis with noted recent wt loss and anemia. With work up patient went to CT with concern for proctocolitis and hx ulcerative colitis and
multiple distal ureter stones and cystic focus in prostate. He had repeat non contrast scan 03/03 with obstructive uropathy with ureter stones, changes of chronic lung disease and rectal and distal sigmoid thickening with hx ulcerative colitis. He
presents for urology procedure but asked to see for anemia and colitis on imaging with heme + stools.
Pt with dementia but does recall some history and in review with and records hx ulcerative colitis since age 16. He recalls treatment with sulfasalazine many years ago but did not recall any local therapy with enemas or suppositories in
past. He was last seen in GI office in 2021 after admission with constipation and declined colonoscopy. Per he has declined GI testing due to intolerance of prep. He is noted with rectal bleeding, abnormal CT, LLQ pain, with anemia and wt
loss. Per he has recently been complaining of LLQ pain worse with eating and BM's. He has had irregular bowel for some time with diarrhea and constipation issues over the years. He denies odynophagia, dysphagia, GERD, nausea, vomiting, or
visible blood in stools. On admission hbg 7.8-9 range with iron deficiency. he is noted with anemia since 2021. Pt is due follow up with OP hematology. Pt with hx iritis but denies joint pains or rashes with hx UC.
Last colonoscopy 2009 [facility] - Quiescent ulcerative colitis
- Stool in the entire examined colon.
- The rectum, sigmoid colon, descending colon,
transverse colon and ascending colon are normal.
Biopsied neg
Past Medical History
Past Medical History: COPD, HTN, IDDM, Psychiatric (dementia ) and Other (idiopathic pulm fibrosis, pulm HTN, ulcerative colitis, iritis )
Past Surgical History: Cholecystectomy
Social History
Tobacco: Non-Smoker
Alcohol: None
Drug: None
Personal:
Living: [facility]
Employment: Retired
Family History
Family History: Other (brother with esophageal cA, no family hx UC or crohns no family hx colon CA)
Allergies / Home Medications
Allergy/AdvReac Type Severity Reaction Status Date / Time
house dust Allergy Unknown Verified 12/17/23 18:38
prednisone Allergy pt was Verified 12/17/23 18:37
'manic'
when given
this med
Sulfa (Sulfonamide Allergy CONFUSION Verified 12/17/23 13:46
Antibiotics)
sulfamethoxazole Allergy CONFUSION Verified 12/17/23 13:46
trimethoprim Allergy Unknown Verified 12/17/23 13:46
�Medication �Instructions �Recorded
aspirin 81 mg tablet,delayed 81 mg PO DAILY Blood clot 07/06/21
release prevention/tx
atorvastatin 40 mg tablet 40 mg PO DAILY High cholesterol 07/06/21
cetirizine 10 mg tablet 10 mg PO DAILYPRN PRN allergies 07/06/21
albuterol sulfate 90 mcg/actuation 2 puff inhalation R Q4HPRN PRN SOB 06/23/23
aerosol inhaler
diphenhydramine HCl 25 mg capsule 25 mg PO HSPRN PRN INSOMNIA 06/23/23
(ZzzQuil)
duloxetine 60 mg capsule,delayed 60 mg PO DAILY Mental 06/23/23
release (Cymbalta) Health/Anxiety
memantine 10 mg tablet 10 mg PO BID Neurological Condition 06/24/23
acetaminophen 500 mg tablet 1,000 mg PO Q6HPRN PRN mild pain 11/29/23
(Tylenol Extra Strength)
insulin NPH isoph U-100 human 100 27 unit SC HS Diabetes 11/29/23
unit/mL (3 mL) subcutaneous pen
(Novolin N FlexPen)
insulin NPH isoph U-100 human 100 40 unit SC DAILY Diabetes 11/29/23
unit/mL (3 mL) subcutaneous pen
(Novolin N FlexPen)
omeprazole 20 mg tablet,delayed 20 mg PO DAILYPRN PRN 11/29/23
release gastrointestinal issue
budesonide 0.5 mg/2 mL suspension 0.5 mg (2 mL) inhalation R BID 12/01/23
for nebulization Lung/breathing issues #60 mL
Cbd-Melatonin 1 tab PO HS Sleep 12/17/23
oxymetazoline 0.05 % nasal spray 1 spray intranasal DAILYPRN PRN 12/17/23
(Afrin (oxymetazoline)) nasal conjestion
aspirin 325 mg tablet 325 mg PO DAILY #27 tabs 12/20/23
insulin aspart U-100 100 unit/mL 3 sliding scale dose SC AC 12/20/23
(3 mL) subcutaneous pen (Novolog Diabetes #0 mL
FlexPen U-100 Insulin aspart)
Review of Systems
-
Unable to obtain full review of systems at this time due to: Dementia
History Source: Patient and Family
Constitutional: Reports Weight Loss and Fatigue
EENT: Reports No Symptoms
Respiratory: Reports No Symptoms
Abdomen/GI: Reports Abdominal Pain, Diarrhea, Constipated and Other (heme + brown stool per nursing staff )
: Reports No Symptoms
Musculoskeletal: Reports No Symptoms
Skin: Reports No Symptoms
Neurological: Reports Weakness
Endocrine: Reports No Symptoms
Hematologic/Lymphatic: Reports Bleeding
Vital Signs
Temp Pulse Resp BP Pulse Ox
97.7 F 86 18 118/69 97
03/18/25 07:50 03/18/25 07:50 03/18/25 07:50 03/18/25 07:50 03/18/25 09:47
Physical Exam
Exam
General: Well Developed, Well Nourished and No Apparent Distress
HEENT: Normocephalic and Anicteric
Respiratory: Clear
Cardiac: Regular Rhythm
GI: Soft, Non Distended and Tender (LLQ)
Rectal: Other (heme + dark brown/red stool with ? friability and irregular mucosa at tip of finger )
Musculoskeletal: No Clubbing and No Cyanosis
Skin: Warm and Dry
Neuro: Awake, Alert and Other (forgetful to questions )
Psych: Calm
Results
WBC 11.9 10^3/uL (4.8-10.8) H 03/18/25 05:44
Hgb 9.0 g/dL (13.0-18.0) L 03/18/25 05:44
Hct 29.8 % (39.0-52.0) L 03/18/25 05:44
MCV 84.2 fL (80.0-94.0) 03/18/25 05:44
Plt Count 302 10^3/uL (130-400) 03/18/25 05:44
Sodium 134 mmol/L (135-145) L 03/18/25 05:44
Potassium 4.9 mmol/L (3.5-5.1) 03/18/25 05:44
Chloride 98 mmol/L (98-107) 03/18/25 05:44
Carbon Dioxide 31 mmol/L (22-30) H 03/18/25 05:44
BUN 26 mg/dl (9-20) H 03/18/25 05:44
Creatinine 1.0 mg/dL (0.7-1.3) 03/18/25 05:44
Calcium 9.2 mg/dl (8.4-10.2) 03/18/25 05:44
Total Bilirubin 0.3 mg/dl (0.2-1.3) 03/17/25 06:11
AST 20 U/L (17-59) 03/17/25 06:11
ALT 15 U/L (0-50) 03/17/25 06:11
Alkaline Phosphatase 95 U/L (38-126) 03/17/25 06:11
Diagnostic Image Results:
03/03/25 CT A/p without contrast
Obstructive uropathy on the right side secondary to approximately 5 stones in the distal right ureter. Greater number of stones in distal right ureter compared with previous CT. The right hydronephrosis is new compared with prior CT. There are also
2 stones in the right lower pole collecting system.
No stones in the left urinary tract
Minimally complicated benign right upper pole renal cyst
Severe chronic interstitial lung disease in visualized lung bases
Redemonstration of circumferential wall thickening of rectum and distal sigmoid colon. This is presumably related to known ulcerative colit
01/30/25 CT Abd/pelvis W Iv Cont
There is mucosal hyperenhancement and wall thickening involving the rectum and distal sigmoid colon suggestive of proctocolitis and possibly related to reported ulcerative colitis.
There multiple stones within the distal right ureter measuring up to 7 mm. There is no associated hydronephrosis.
There is a 1.9 x 1.7 cm cystic focus within the left central prostate, possibly a cyst although further evaluation with prostate MRI may be considered as clinically warranted.
.
Prior GI Procedures:
Colonoscopy: last 2009 [facility] - Quiescent ulcerative colitis
- Stool in the entire examined colon.
- The rectum, sigmoid colon, descending colon,
transverse colon and ascending colon are normal.
Biopsied. neg active colitis or proctitis
colonoscopy with ulcerative colitis, edema distant descending erythema simgoid and superficial ulceation rectum, small non bleeding hemorrhoids.
rectal bx with moderate activre proctocolitis
Assessment / Plan
-
Pt is a 79yo with hx COPD, idiopathic pulm fibrosis, HTN, IDDM, dementia, pulm HTN, ulcerative colitis, iritis, with noted recent wt loss and anemia. With work up patient went to CT with concern for proctocolitis and hx ulcerative colitis and
multiple distal ureter stones and cystic focus in prostate. He had repeat non contrast scan 03/03 with obstructive uropathy with ureter stones, changes of chronic lung disease and rectal and distal sigmoid thickening with hx ulcerative colitis. He
presents for urology procedure but asked to see for anemia and colitis on imaging with heme + stools. Pt with dementia but does recall some history and in review with and records hx ulcerative colitis since age 16. He recalls treatment with
sulfasalazine many years ago but did not recall any local therapy with enemas or suppositories in past. He was last seen in GI office in 2021 after admission with constipation and declined colonoscopy. Per he has declined GI testing due to
intolerance of prep. He is noted with rectal bleeding, abnormal CT, LLQ pain, with anemia and wt loss. Per he has recently been complaining of LLQ pain worse with eating and BM's. He has had irregular bowel for some time with diarrhea and
constipation issues over the years. On admission hbg 7.8-9 range with iron deficiency. he is noted with anemia since 2021. Pt is due follow up with OP hematology. Last colonoscopy 2009 [facility] - Quiescent ulcerative colitis bx neg
-rectal bleeding with heme + dark brown/red stool with ? friability and irregular mucosa at tip of finger on rectal exam
-hx ulcerative colitis no on current therapy
-LLQ pain
-iron deficiency anemia
-wt loss
-Right ureteral obstructing stone with right hydronephrosis--Status post cystoscopy and laser treatment of right ureteral stones
other med problems:
- COPD, idiopathic pulm fibrosis, HTN, IDDM, dementia, pulm HTN
PLAN:
etiology of bleeding, pain and anemia with concern for active ulcerative colitis/procitis vs underlying mass vs other
plan for Flex sig 03/19-pt and family agreeable to proceed
reviewed with patient pending finding may need treatment for ulcerative colitis
NPO in AM
trend hbg
s/p IV iron given
due OP heme follow up
-
-
Thank you for consultation and allowing me to participate in the patient's care. Please call the section gang GI physician during the after hours with any questions or concerns.
[2025-03-18] MEDS: TYLENOL 1000 MG PO (11:12)
[2025-03-18] MEDS: LEVAQUIN 100 IV (11:14)
[2025-03-18] MEDS: FLUSH (NSS) 1 FLUSH IV (11:14)
[2025-03-18 13:08] LABS: Glucose - Point of Care 180 mg/dl (70-99)
--- NOTE | 2025-03-18 14:35 | CM ---
GI consult for + stool occult blood, low abdominal pain, history colitis. IV/FE, follow H/H. Discharge POC: Return to [facility] for resumption of LTC. Referral forwarded.
[2025-03-18] MEDS: FERRLECIT 110 MG IV (16:34)
[2025-03-18 17:36] LABS: Glucose - Point of Care 162 mg/dl (70-99)
[2025-03-18 21:24] LABS: Glucose - Point of Care 200 mg/dl (70-99)
[2025-03-18] MEDS: MELATONIN 5 MG PO (22:35)
[2025-03-19] VITALS (8 sets, daily range): BP systolic 16–140; BP diastolic 58–85
[2025-03-19 07:17] LABS: INR 1.05; PT 14.2 Sec (11.4-14.6)
[2025-03-19 07:21] LABS: Hematocrit 30.8 % (39.0-52.0); Hemoglobin 9.4 g/dL (13.0-18.0); Mean Corp Hgb Conc. 30.5 g/dL (33.0-37.0); Mean Corpuscular Volume 85.1 fL (80.0-94.0); Platelet Count 318 10^3/uL (130-400); Red Cell Dist. Width 15.4 % (11.5-14.5)
--- NOTE | 2025-03-19 07:41 | PTCARENOTE ---
assumed care of pt at 0715. assessment as documented. 500 ml tap water enema given at 0720 as ordered-pt unable to retain instillation-immediate return of liquid-placed on bedpan-unable to have a BM. no blood noted. report given to Katlyn in GI
lab and pt transported to GI lab via stretcher on O2 2L NC w/volunteer transport.
[2025-03-19] MEDS: PULMICORT INH (07:44)
[2025-03-19 07:55] LABS: Blood Urea Nitrogen 32 mg/dl (9-20); Calcium 9.4 mg/dl (8.4-10.2); Carbon Dioxide 30 mmol/L (22-30); Chloride 99 mmol/L (98-107); Estimated Creatinine Clearance 58 ml/min; Glucose 151 mg/dl (70-99); Potassium 4.3 mmol/L (3.5-5.1); Sodium 136 mmol/L (135-145); eGFR > 60.00
[2025-03-19 09:23] LABS: Glucose - Point of Care 134 mg/dl (70-99)
[2025-03-19] MEDS: NOVOLOG FLEXPEN-LOW RESISTANCE SC ×3 (09:30→17:45)
[2025-03-19] MEDS: NAMENDA 10 MG PO ×2 (09:32→21:03)
[2025-03-19] MEDS: CYMBALTA DELAYED RELEASE 60 MG PO (09:32)
[2025-03-19] MEDS: ASPIR LOW (ENTERIC COATED) 81 MG PO (09:32)
[2025-03-19] MEDS: LIPITOR 40 MG PO (09:32)
--- NOTE | 2025-03-19 09:56 | W.PN.PUL.V3 ---
Today's Communication / Plan
-
Respiratory status continues to be stable and tolerating procedures including urologic procedure and flexible sigmoidoscopy
Supplemental oxygen as needed
Will follow loosely-if needs colorectal surgery likely will be cleared from a pulmonary perspective with moderate risks for perioperative pulmonary complications
Assessment
-
79-year-old non-smoking, however, significant secondhand smoke exposure from father for 20 years with underlying ILD on chronic oxygen noted to have significant renal calculi requiring surgery/general anesthesia-pulmonary was consulted for
perioperative pulmonary risks assessment and for shortness of breath 03/16/2025.
Multiple renal calculi for stone extraction with general anesthesia
Interstitial lung disease on chronic oxygen 2 L-currently stable
Rectal mass noted on flexible sigmoidoscopy 03/19/2025
Conditions present prior to admission:
Interstitial lung disease-etiology unclear, not on antifibrotic's.
Chronic hypoxemia on oxygen.
Chronic cough-suspected microaspiration
GERD.
Renal calculi.
Depression.
Hyperlipidemia.
Migraines.
Type 2 diabetes.
Appendectomy. Cholecystectomy. Right ankle fracture.
Plan
Patient has chronic interstitial lung disease with chronic hypoxemia and has historically been quite stable for over a year without obvious progression-has not been seen in the office since 09/2024
Supplemental oxygen as needed-has not needed increased FiO2 requirements from baseline
Aspiration precautions
Budesonide nebulizers
Nebulizers as needed
Mucolytic's
Systemic steroids not indicated
Last pulmonary function tests are summarized below
Patient was urologic cleared for proposed surgery-moderate risk for perioperative pulmonary complications due to underlying moderate to severe interstitial lung disease
Patient underwent right uteroscopy, laser lithotripsy of stone, basket extraction of stones in the bladder 03/17/2025
Patient cleared for flexible sigmoidoscopy from a pulmonary perspective 03/19/2025
Flexible sigmoidoscopy performed by GI 03/19/2025-rectal mass 3 cm from the anal verge, likely malignant-biopsy
Colorectal surgical evaluation
DVT prophylaxis recommended
GI prophylaxis-on pantoprazole
Early nutrition with aspiration precautions
Early mobilization
Reviewed with at the bedside on 03/16/2025
Patient stable from a pulmonary perspective for proposed discharge
Patient last saw Dr. Grace 09/07/23 and canceled 01/22/2024-recommend [id number] in agreement-interstitial lung disease workup has been suggested to him in the past and he wanted conservative workup/therapy
Diagnostic data:
CT chest 08/22/2021-interstitial lung disease, no honeycombing
CT chest 06/25/2023-moderate interstitial fibrosis which has progressed
CT chest 01/30/2025-pulmonary fibrotic changes appear slightly progressed from June [address] abdomen and pelvis 03/03/2025-obstructive uropathy with 5 stones in the distal right ureter, severe chronic interstitial lung disease noted at the lung bases
VSE 04/09/23: premature spillage with straw and cup
Echocardiogram 11/30/2023-EF 60-65%, mild mitral stenosis, PA systolic 33
PFT 06/26/22: FVC 1.66/50%, FEV1 1.50/63%, ratio 90 here TLC 3.10/51%, DLCO 6.85/32%. Patient did have some problems with study due to dementia. When compared to July 2021, FVC has decreased from 2.02-1.66, TLC is increased from 2.78 to 3.10.
DLCO is stable. Moderate restriction with severe gas exchange defect
6MWT 09/07/23:88% with simple ambulation. Require 2 L to walk 600 feet, 93% room air, heart rate 98, dyspnea scale 1.5/10
Subjective Data
-
Date of Service:
Date of Service: March 19, 2025
Chief Complaint: Pulmonary Follow Up and Dyspnea Follow Up
Subjective:
Had flexible sigmoidoscopy, tolerated well, no complaints of shortness of breath
Review of Systems
General: Other (Per HPI)
Objective Data
Data Reviewed
Vital Signs / I&O:
Vital Signs
Temp Pulse Resp BP Pulse Ox
97.9 F 76 18 131/67 100
03/19/25 09:25 03/19/25 09:25 03/19/25 09:25 03/19/25 09:25 03/19/25 09:25
Intake and Output
03/18/25 03/19/25 03/20/25
06:59 06:59 06:59
Intake Total 730 / 730 570 / 570
Output Total 750 / 750
Balance -20 / -20 570 / 570
SaO2: 100
Nasal Cannula flow liters per minute: 2
Physical Exam
General: Respiratory Distress (n) and Comfortable
HEENT: Normocephalic, Anicteric and Moist Mucous Membranes
Cardiovascular: Regular Rhythm
Respiratory: Wheeze (n), Crackles, Rhonchi (n), Non-Labored Respirations, Accessory Resp Muscle Use (n) and Stridor (n)
GI: Soft, Non Distended and Non Tender
Neurology: Awake, Alert and No Motor Deficits
Skin: Warm, Good Color, Cyanosis (n), Jaundice (n) and Rash (n)
Labs/Micro/Reports
Lab Data
03/19/25 06:27
03/19/25 06:28
Laboratory Results
03/19/25
06:27
PT 14.2
INR 1.05
Microbiology
03/17/25 06:11 Nose MRSA Screen - Final
No Methicillin Resistant Staphylococcus aureus isolated.
--- NOTE | 2025-03-19 10:06 | W.PN.HOSP.TC ---
Today's Communication/Plan
-
colorectal evaluation
Assessment / Plan
Assessment / Plan
Assessment:
Right ureteral obstructing stone with right hydronephrosis
- s/p cystoscopy and laser treatment of right ureteral stones on 03/17
- continue Levaquin post-op per Urology. no UA available. Finite 7 day course is likely sufficient
severe Chronic anemia
Iron deficiency anemia
- s/p 1 unit PRBC 03/17
- continue IV Iron course
- rectal mass could explain chronic anemia
Abdominal pain
Hx of UC
- CT 03/03: with circumferential wall thickening of rectum and distal sigmoid colon
- GI evaluated
- s/p Flex sig 03/19 with circumferential 10 cm rectal mass
- Colorectal consulted
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
- No evidence of acute exacerbation. No reactive airway disease. Stable on 2 L.
- continue with oxygen and inhaler therapy. No indication for steroids.
- Pulmonary following
History of essential hypertension
- BP at/under goal; not on meds
Type 2 DM
- continue home insulin regimens; may need dose adjustments
- A1c 6.4%
DVT ppx: SCDs
Code: Full
Anticipated Discharge: > 48 hours
Subjective/Interval History
-
Date of Service: March 19, 2025
resting comfortably, no new complaints
s/p flex sig with rectal mass found
Objective Data
-
Labs:
Laboratory Results
03/19/25 03/19/25
06:27 06:28
WBC 9.1
Hgb 9.4 L
Hct 30.8 L
Plt Count 318
PT 14.2
INR 1.05
Sodium 136
Potassium 4.3
Chloride 99
Carbon Dioxide 30
BUN 32 H
Creatinine 0.9
Glucose 151 H
Calcium 9.4
Vital Signs:
Vital Signs
Temp Pulse Resp BP Pulse Ox
97.9 F 76 18 131/67 100
03/19/25 09:25 03/19/25 09:25 03/19/25 09:25 03/19/25 09:25 03/19/25 09:56
I&O
03/18/25 03/19/25 03/20/25
06:59 06:59 06:59
Intake Total 730 / 730 570 / 570
Output Total 750 / 750
Balance -20 / -20 570 / 570
Physical Exam
-
General: No Apparent Distress
HEENT: Normocephalic and Atraumatic
Respiratory: Negative Wheezes
Cardiac: Regular Rhythm and S1/S2
GI: Soft and Nontender
Genito-urinary: No Costovertebral Tender
Neuro: AO x 3
Psych: Calm
Data Reviewed
-
Total Time Spent with Patient (in minutes): 42
Labs: Labs Reviewed by me
[2025-03-19] MEDS: LEVAQUIN 100 IV (12:22)
[2025-03-19] MEDS: OMNIPAQUE 50 ML PO (12:34)
[2025-03-19] MEDS: TYLENOL 1000 MG PO (12:34)
[2025-03-19 13:04] LABS: Glucose - Point of Care 173 mg/dl (70-99)
[2025-03-19] MEDS: FERRLECIT 110 MG IV (13:36)
--- NOTE | 2025-03-19 15:12 | CM ---
Rectal mass, sigmoidoscopy today with colon biopsy, Levaquin IV. Discharge POC: Return to [facility] for resumption of LTC.
[2025-03-19 17:51] LABS: Glucose - Point of Care 137 mg/dl (70-99)
[2025-03-19] MEDS: PULMICORT 0.5 MG INH (18:11)
[2025-03-19] MEDS: MELATONIN 5 MG PO (21:02)
[2025-03-19] MEDS: FLUSH (NSS) 1 FLUSH IV (21:04)
[2025-03-19 21:39] LABS: Glucose - Point of Care 147 mg/dl (70-99)
[2025-03-20] MEDS: TYLENOL 1000 MG PO (01:42)
--- NOTE | 2025-03-20 06:54 | CON.CRS ---
Consultation
-
Date/Time Consultation Requested: 03/19/25
Date/Time Consultation Performed: 03/19/25 12:30pm
Performing Provider: Mal Biggs MD
Reason for Consultation: rectal tumor
Medical History
-
History of Present Illness:
DELAYED ENTRY
Patient is a 79-year-old male with PMH of COPD and pulmonary fibrosis (on 2 L home O2), pulmonary hypertension, HTN, DM, UC (not on any maintenance medications, last colonoscopy was [address] Rey, which was complicated by poor prep, but
normal mucosa throughout, random biopsies negative for inflammation), dementia, wheel�chair bound who was admitted preoperatively for cystoscopy. He underwent cystoscopy with stone removal on 03/17. The following day, he developed rectal bleeding.
There was some left-sided abdominal pain, but this has been ongoing and was originally thought to be due to the kidney stone. There was no nausea or vomiting and he had continued bowel function. He denies any issues with constipation or diarrhea.
He underwent sigmoidoscopy on 03/[address] Cleveland and was found to have an ulcerating/infiltrative, partially obstructing rectal mass, spanning 10 cm in length, starting from 3 cm from the anal verge. This was biopsied. Colorectal was consulted
for further management.
Past Medical History
Past Medical History: Other (As above)
Past Surgical History: Other (Cholecystectomy, appendectomy, right shoulder)
Social History
Tobacco: Other (Significant secondhand smoke exposure (father smoked 5 packs/day his entire childhood))
Alcohol: None
Drug: None
Personal:
Living: [facility]
Employment: Retired
Family History
Family History: Other (Paternal grandmother with unknown cancer, brother with esophageal and prostate cancer, no CRC)
Allergies / Home Medications
Allergy/AdvReac Type Severity Reaction Status Date / Time
house dust Allergy Unknown Verified 12/17/23 18:38
prednisone Allergy pt was Verified 12/17/23 18:37
'manic'
when given
this med
Sulfa (Sulfonamide Allergy CONFUSION Verified 12/17/23 13:46
Antibiotics)
sulfamethoxazole Allergy CONFUSION Verified 12/17/23 13:46
trimethoprim Allergy Unknown Verified 12/17/23 13:46
�Medication �Instructions �Recorded �Confirmed �Type
aspirin 81 mg tablet,delayed 81 mg PO DAILY Blood clot 07/06/21 03/19/25 History
release prevention/tx
cetirizine 10 mg tablet 10 mg PO DAILYPRN PRN allergies 07/06/21 03/19/25 History
albuterol sulfate 90 mcg/actuation 2 puff inhalation R Q4HPRN PRN SOB 06/23/23 03/19/25 History
aerosol inhaler
memantine 10 mg tablet 10 mg PO BID Neurological Condition 06/24/23 03/19/25 History
omeprazole 20 mg tablet,delayed 20 mg PO DAILYPRN PRN 11/29/23 03/19/25 History
release gastrointestinal issue
budesonide 0.5 mg/2 mL suspension 0.5 mg (2 mL) inhalation R BID 12/01/23 03/19/25 Rx
for nebulization Lung/breathing issues #60 mL
oxymetazoline 0.05 % nasal spray 1 spray intranasal DAILYPRN PRN 12/17/23 03/19/25 History
(Afrin (oxymetazoline)) nasal conjestion
acetaminophen 325 mg tablet 650 mg PO Q4HPRN PRN mild 03/19/25 03/19/25 History
pain/temp>100
atorvastatin 20 mg tablet 20 mg PO DAILY 03/19/25 03/19/25 History
bisacodyl 10 mg rectal suppository 10 mg NM DAILYPRN PRN if no bm 03/19/25 03/19/25 History
(Dulcolax (bisacodyl)) after MOM
brexpiprazole 0.5 mg tablet 0.5 mg PO DAILY 03/19/25 03/19/25 History
(Rexulti)
buspirone 5 mg tablet 5 mg PO BID 03/19/25 03/19/25 History
cholecalciferol (vitamin D3) 25 25 mcg PO DAILY 03/19/25 03/19/25 History
mcg (1,000 unit) tablet
duloxetine 60 mg capsule,delayed 60 mg PO DAILY 03/19/25 03/19/25 History
release
ferrous sulfate 325 mg (65 mg 325 mg PO DAILY 03/19/25 03/19/25 History
iron) tablet
finasteride 5 mg tablet 5 mg PO DAILY 03/19/25 03/19/25 History
insulin NPH isoph U-100 human 100 27 unit SC HS 03/19/25 03/19/25 History
unit/mL subcutaneous suspension
(Humulin N NPH U-100 Insulin
(isophane susp))
insulin NPH isoph U-100 human 100 35 unit SC DAILY 03/19/25 03/19/25 History
unit/mL subcutaneous suspension
(Humulin N NPH U-100 Insulin
(isophane susp))
insulin aspart U-100 100 unit/mL 0 - 7 sliding scale dose SC ACHS 03/19/25 03/19/25 History
(3 mL) subcutaneous pen (Novolog
FlexPen U-100 Insulin aspart)
lamotrigine 25 mg tablet (Lamictal) 25 mg PO BID 03/19/25 03/19/25 History
magnesium hydroxide 400 mg/5 mL 30 ml PO DAILYPRN PRN if no bm x 3 03/19/25 03/19/25 History
oral suspension (Milk of Magnesia) days
melatonin 10 mg tablet 10 mg PO HS 03/19/25 03/19/25 History
midodrine 5 mg tablet 5 mg PO TID 03/19/25 03/19/25 History
sodium phosphates 19 gram-7 118 ml NM ONCE PRN if dulcolax is 03/19/25 03/19/25 History
gram/118 mL enema ineffective
trazodone 50 mg tablet 25 mg PO HS 03/19/25 03/19/25 History
Review of Systems
-
A 10 point review of systems was completed, and was negative except as per HPI.
Physical Exam
Vital Signs
Temp 97.8 F 03/19/25 23:05
Pulse 101 03/19/25 23:05
Resp Rate 16 03/19/25 23:05
Blood pressure 140/85 03/19/25 23:05
SaO2 98 03/19/25 23:05
Body Mass Index (BMI) 22.1
Lab Results / Allergies
WBC 9.1 10^3/uL (4.8-10.8) 03/19/25 06:27
Hgb 9.4 g/dL (13.0-18.0) L 03/19/25 06:27
Hct 30.8 % (39.0-52.0) L 03/19/25 06:27
Plt Count 318 10^3/uL (130-400) 03/19/25 06:27
Allergy/AdvReac Type Severity Reaction Status Date / Time
house dust Allergy Unknown Verified 12/17/23 18:38
prednisone Allergy pt was Verified 12/17/23 18:37
'manic'
when given
this med
Sulfa (Sulfonamide Allergy CONFUSION Verified 12/17/23 13:46
Antibiotics)
sulfamethoxazole Allergy CONFUSION Verified 12/17/23 13:46
trimethoprim Allergy Unknown Verified 12/17/23 13:46
Physical Exam
General: Well Developed, Well Nourished and No Apparent Distress
HEENT: Normocephalic and Atraumatic
Respiratory: Non Labored Respirations
Cardiac: S1/S2
GI: Soft, Non Distended and Tender (Minimally tender in the left lateral abdomen, no rebound or guarding)
Rectal: Other (ALEX-intact tone, no gross blood, palpable left posterior/lateral mass about 6-7 cm from the anal verge)
Skin: Warm and Dry
Neuro: Awake, Alert and Oriented
Assessment / Plan
-
79-year-old male with PMH of COPD and pulmonary fibrosis (on 2 L home O2), pulmonary hypertension, HTN, DM, UC (not on any maintenance medications, last colonoscopy was [address] Rey, which was complicated by poor prep, but normal mucosa
throughout, random biopsies negative for inflammation), dementia, wheel�chair bound who was admitted preoperatively for cystoscopy. He underwent cystoscopy with stone removal on 03/17. The following day, he developed rectal bleeding. There was
some left-sided abdominal pain, but this has been ongoing and was originally thought to be due to the kidney stone. There was no nausea or vomiting and he had continued bowel function. He denies any issues with constipation or diarrhea. He
underwent sigmoidoscopy on 03/[address] Cleveland and was found to have an ulcerating/infiltrative, partially obstructing rectal mass, spanning 10 cm in length, starting from 3 cm from the anal verge. This was biopsied. Colorectal was consulted for
further management.
AFVSS
�Bleeding rectal mass, concerning for cancer
�Await pathology
�CEA in a.m.
�Will order CT CAP
�Lengthy discussion with patient, patient's spouse and patient's daughter regarding pathophysiology, staging and treatment of rectal cancer; I explained the most important step is to determine if there is any evidence of metastatic disease; the
next step will be to determine the depth of invasion and lymph node involvement via MRI, which can be done as an outpatient; most of the time, rectal cancer involves a combination of chemo and radiation, sometimes surgery; all questions were answered
�Okay for regular diet
� Appreciate hospitalist; dispo per primary; patient does not have any concerns for impending obstruction; therefore, patient is okay for discharge once medically cleared
[2025-03-20] MEDS: PULMICORT INH (07:17)
[2025-03-20 07:25] VITALS: BP 139/72
[2025-03-20 08:07] LABS: Glucose - Point of Care 139 mg/dl (70-99)
[2025-03-20] MEDS: NOVOLOG FLEXPEN-LOW RESISTANCE SC (08:31)
--- NOTE | 2025-03-20 08:37 | W.PN.CRS1 ---
Today's Communication / Plan
-
Disposition per hospitalist.
Assessment/Plan
-
Rectal mass (probable rectal cancer).
1. CT reviewed. No evidence for distant metastases.
2. CEA pending.
3. will need pelvic MRI (rectal cancer protocol) as outpatient.
4. pathology report pending.
5. will need to follow up with Dr. Biggs in office as outpatient.
Subjective Data
Subjective Data
Date of Service: March 20, 2025
No complaints.
Objective Data
-
Vital Signs
Temp Pulse Resp BP Pulse Ox
97.7 F 80 14 139/72 99
03/20/25 07:25 03/20/25 07:25 03/20/25 07:25 03/20/25 07:25 03/20/25 07:25
Intake & Output
03/19/25 03/20/25 03/21/25
06:59 06:59 06:59
Intake Total 570 / 570 460 / 460 480 / 480
Balance 570 / 570 460 / 460 480 / 480
Intake:
Oral fluids 360 / 360 360 / 360 480 / 480
IV piggybacks 210 / 210 100 / 100
Other:
How many times incontinent 1 1
MODERATE amount urine
How many times incontinent 1 2
SATURATED amount urine
Number of unmeasured liquid
stools
Rectum 3
Physical Exam
-
General: No Acute Distress
Chest: Clear
Cardiovascular: Regular Rate & Rhythm
Abdomen: Soft, Non Distended and Non Tender
Data Reviewed
-
CT Scan: Image Reviewed and Report Reviewed
[2025-03-20] MEDS: LIPITOR 40 MG PO (08:46)
[2025-03-20] MEDS: ASPIR LOW (ENTERIC COATED) 81 MG PO (08:47)
[2025-03-20] MEDS: NAMENDA 10 MG PO (08:47)
[2025-03-20] MEDS: CYMBALTA DELAYED RELEASE 60 MG PO (08:47)
--- NOTE | 2025-03-20 09:03 | CM ---
Addendum entered by Trini Sosa RN 03/20/25 13:02:
CM left voice message with admissions regarding need to find a way to return the patient's wheelchair that the ambulance was unable to return with patient.
Addendum entered by Trini Sosa RN 03/20/25 11:01:
Patient's spouse updated on discharge today.
Addendum entered by Trini Sosa RN 03/20/25 10:22:
IMM reviewed.
Medical necessity and transport forms on chart.
Original Note:
Reviewed the chart notes. Patient is a half-way resident of [facility]. CM continues to be available to patient/family and is monitoring medical plan for needs at discharge.
Plan: Discharge to [facility] when medically stable.
Call report to: [phone]
Fax report to: [phone]
[2025-03-20 09:18] LABS: Hematocrit 30.7 % (39.0-52.0); Hemoglobin 9.1 g/dL (13.0-18.0); Mean Corp Hgb Conc. 29.6 g/dL (33.0-37.0); Mean Corpuscular Volume 84.3 fL (80.0-94.0); Platelet Count 291 10^3/uL (130-400); Red Cell Dist. Width 15.9 % (11.5-14.5)
--- NOTE | 2025-03-20 09:27 | W.PN.PUL.V3 ---
Today's Communication / Plan
-
.
Respiratory status stable for proposed discharge.
Outpatient colorectal workup
Assessment
-
79-year-old non-smoking, however, significant secondhand smoke exposure from father for 20 years with underlying ILD on chronic oxygen noted to have significant renal calculi requiring surgery/general anesthesia-pulmonary was consulted for
perioperative pulmonary risks assessment and for shortness of breath 03/16/2025.
Multiple renal calculi for stone extraction with general anesthesia
Interstitial lung disease on chronic oxygen 2 L-currently stable
Rectal mass noted on flexible sigmoidoscopy 03/19/2025
Conditions present prior to admission:
Interstitial lung disease-etiology unclear, not on antifibrotic's.
Chronic hypoxemia on oxygen.
Chronic cough-suspected microaspiration
GERD.
Renal calculi.
Depression.
Hyperlipidemia.
Migraines.
Type 2 diabetes.
Appendectomy. Cholecystectomy. Right ankle fracture.
Plan
Patient has chronic interstitial lung disease with chronic hypoxemia and has historically been quite stable for over a year without obvious progression-has not been seen in the office since 09/2024
Supplemental oxygen as needed-has not needed increased FiO2 requirements from baseline
Aspiration precautions
Budesonide nebulizers
Nebulizers as needed
Mucolytic's
Systemic steroids not indicated
Last pulmonary function tests are summarized below
Patient was urologic cleared for proposed surgery-moderate risk for perioperative pulmonary complications due to underlying moderate to severe interstitial lung disease
Patient underwent right uteroscopy, laser lithotripsy of stone, basket extraction of stones in the bladder 03/17/2025
Patient cleared for flexible sigmoidoscopy from a pulmonary perspective 03/19/2025
Flexible sigmoidoscopy performed by GI 03/19/2025-rectal mass 3 cm from the anal verge, likely malignant-biopsy
Colorectal surgical evaluation. Ongoing
CEA pending.
Will need outpatient pelvic MRI-rectal cancer protocol.
Await pathology
DVT prophylaxis recommended
GI prophylaxis-on pantoprazole
Early nutrition with aspiration precautions
Early mobilization
Reviewed with at the bedside on 03/16/2025
Patient stable from a pulmonary perspective for proposed discharge
Patient last saw Dr. Grace 09/07/23 and canceled 01/22/2024-recommend [id number] in agreement-interstitial lung disease workup has been suggested to him in the past and he wanted conservative workup/therapy
Diagnostic data:
CT chest 08/22/2021-interstitial lung disease, no honeycombing
CT chest 06/25/2023-moderate interstitial fibrosis which has progressed
CT chest 01/30/2025-pulmonary fibrotic changes appear slightly progressed from June [address] abdomen and pelvis 03/03/2025-obstructive uropathy with 5 stones in the distal right ureter, severe chronic interstitial lung disease noted at the lung bases
VSE 04/09/23: premature spillage with straw and cup
Echocardiogram 11/30/2023-EF 60-65%, mild mitral stenosis, PA systolic 33
PFT 06/26/22: FVC 1.66/50%, FEV1 1.50/63%, ratio 90 here TLC 3.10/51%, DLCO 6.85/32%. Patient did have some problems with study due to dementia. When compared to July 2021, FVC has decreased from 2.02-1.66, TLC is increased from 2.78 to 3.10.
DLCO is stable. Moderate restriction with severe gas exchange defect
6MWT 09/07/23:88% with simple ambulation. Require 2 L to walk 600 feet, 93% room air, heart rate 98, dyspnea scale 1.5/10
Subjective Data
-
Date of Service:
Date of Service: March 20, 2025
Chief Complaint: Pulmonary Follow Up and Dyspnea Follow Up
Subjective:
No complaints shortness of breath, chest congestion, productive cough
Review of Systems
General: Other ( per HPI)
Objective Data
Data Reviewed
Vital Signs / I&O:
Vital Signs
Temp Pulse Resp BP Pulse Ox
97.7 F 80 14 139/72 99
03/20/25 07:25 03/20/25 07:25 03/20/25 07:25 03/20/25 07:25 03/20/25 07:25
Intake and Output
03/19/25 03/20/25 03/21/25
06:59 06:59 06:59
Intake Total 570 / 570 460 / 460 480 / 480
Balance 570 / 570 460 / 460 480 / 480
SaO2: 99
Nasal Cannula flow liters per minute: 2
Physical Exam
General: Respiratory Distress (n) and Comfortable
HEENT: Normocephalic, Anicteric and Moist Mucous Membranes
Cardiovascular: Regular Rhythm
Respiratory: Wheeze (n), Crackles, Rhonchi (n), Non-Labored Respirations, Accessory Resp Muscle Use (n) and Stridor (n)
GI: Soft, Non Distended and Non Tender
Neurology: Awake, Alert and No Motor Deficits
Skin: Warm, Good Color, Cyanosis (n), Jaundice (n) and Rash (n)
Labs/Micro/Reports
Lab Data
03/20/25 08:24
Microbiology
03/17/25 06:11 Nose MRSA Screen - Final
No Methicillin Resistant Staphylococcus aureus isolated.
--- NOTE | 2025-03-20 09:41 | W.PN.HOSP.TC ---
Today's Communication/Plan
-
dc to SNF today
Assessment / Plan
Assessment / Plan
Assessment:
Right ureteral obstructing stone with right hydronephrosis
- s/p cystoscopy and laser treatment of right ureteral stones on 03/17
- completed 7 day Levaquin course
severe Chronic anemia
Iron deficiency anemia
- s/p 1 unit PRBC 03/17
- continue IV Iron course while in hospital, then start oral iron Q48h
- rectal mass could explain chronic anemia
Abdominal pain
Hx of UC
- CT 03/03: with circumferential wall thickening of rectum and distal sigmoid colon
- s/p Flex sig 03/19 with circumferential 10 cm rectal mass
- Colorectal consulted; OP rectal MRI And OP office visit
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
- No evidence of acute exacerbation. No reactive airway disease. Stable on 2 L.
- continue with oxygen and inhaler therapy. No indication for steroids.
- Pulmonary follow up OP
History of essential hypertension
- BP at/under goal; not on meds
Type 2 DM
- continue home insulin regimens; may need dose adjustments
- A1c 6.4%
DVT ppx: SCDs
Code: Full
More than 30 minutes spent in discharge including
Final examination of the patient
Summarizing hospital stay
Instructions for continuing care to all relevant caregivers
Preparation of discharge records, prescriptions, and referral forms
Total time spent (in minutes): 41
Anticipated Discharge: Today
Subjective/Interval History
-
Date of Service: March 20, 2025
resting comfortably at present
Objective Data
-
Labs:
Laboratory Results
03/20/25
08:24
WBC 9.4
Hgb 9.1 L
Hct 30.7 L
Plt Count 291
Sodium Pending
Potassium Pending
Chloride Pending
Carbon Dioxide Pending
BUN Pending
Creatinine Pending
Glucose Pending
Calcium Pending
Vital Signs:
Vital Signs
Temp Pulse Resp BP Pulse Ox
97.7 F 80 14 139/72 99
03/20/25 07:25 03/20/25 07:25 03/20/25 07:25 03/20/25 07:25 03/20/25 09:27
I&O
03/19/25 03/20/25 03/21/25
06:59 06:59 06:59
Intake Total 570 / 570 460 / 460 480 / 480
Balance 570 / 570 460 / 460 480 / 480
Physical Exam
-
General: No Apparent Distress
HEENT: Normocephalic and Atraumatic
Respiratory: Negative Wheezes
Cardiac: Regular Rhythm
GI: Soft
Neuro: AO x 3
Psych: Calm
Data Reviewed
-
Total Time Spent with Patient (in minutes): 41
Labs: Labs Reviewed by me
[2025-03-20 09:50] LABS: Blood Urea Nitrogen 26 mg/dl (9-20); Calcium 9.3 mg/dl (8.4-10.2); Carbon Dioxide 29 mmol/L (22-30); Chloride 100 mmol/L (98-107); Estimated Creatinine Clearance 58 ml/min; Glucose 135 mg/dl (70-99); Potassium 4.3 mmol/L (3.5-5.1); Sodium 135 mmol/L (135-145); eGFR > 60.00
--- NOTE | 2025-03-20 09:53 | W.DS.TRANS ---
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
-
Discharge Instructions:
Discharge Diagnosis/Procedures Right ureteral obstructive stone/hydronephrosis
s/p stone procedure 03/17. Anemia with iron
deficiency requiring blood, abd pain with flex
sig 03/19 showing rectal mass. IPF on O2
Diet Low Residue
Additional Diets low residue until instructed by Colorectal
office for change in diet
Activity As tolerated
Others Tests pelvic MRI - rectal cancer protocol. Call
colorectal office on Sunday for order/scheduling
of this test.
Instructions:
Stand-Alone Forms:
Changes to Home Medications: No
Discharge Medications:
DC Medications w/original date entered in [employer]
aspirin 81 mg tablet,delayed release 81 mg PO DAILY Blood clot prevention/tx 07/06/21
cetirizine 10 mg tablet 10 mg PO DAILYPRN PRN allergies 07/06/21
albuterol sulfate 90 mcg/actuation aerosol inhaler 2 puff inhalation R Q4HPRN PRN SOB 06/23/23
memantine 10 mg tablet 10 mg PO BID Neurological Condition 06/24/23
omeprazole 20 mg tablet,delayed release 20 mg PO DAILYPRN PRN gastrointestinal issue 11/29/23
budesonide 0.5 mg/2 mL suspension for nebulization 0.5 mg (2 mL) inhalation R BID Lung/breathing issues #60 mL 12/01/23
oxymetazoline 0.05 % nasal spray (Afrin (oxymetazoline)) 1 spray intranasal DAILYPRN PRN nasal conjestion 12/17/23
acetaminophen 325 mg tablet 650 mg PO Q4HPRN PRN mild pain/temp>100 03/19/25
atorvastatin 20 mg tablet 20 mg PO DAILY 03/19/25
bisacodyl 10 mg rectal suppository (Dulcolax (bisacodyl)) 10 mg NM DAILYPRN PRN if no bm after MOM 03/19/25
brexpiprazole 0.5 mg tablet (Rexulti) 0.5 mg PO DAILY 03/19/25
buspirone 5 mg tablet 5 mg PO BID 03/19/25
cholecalciferol (vitamin D3) 25 mcg (1,000 unit) tablet 25 mcg PO DAILY 03/19/25
duloxetine 60 mg capsule,delayed release 60 mg PO DAILY 03/19/25
ferrous sulfate 325 mg (65 mg iron) tablet 325 mg PO DAILY 03/19/25
finasteride 5 mg tablet 5 mg PO DAILY 03/19/25
insulin aspart U-100 100 unit/mL (3 mL) subcutaneous pen (Novolog FlexPen U-100 Insulin aspart) 0 - 7 sliding scale dose SC ACHS 03/19/25
lamotrigine 25 mg tablet (Lamictal) 25 mg PO BID 03/19/25
magnesium hydroxide 400 mg/5 mL oral suspension (Milk of Magnesia) 30 ml PO DAILYPRN PRN if no bm x 3 days 03/19/25
melatonin 10 mg tablet 10 mg PO HS 03/19/25
midodrine 5 mg tablet 5 mg PO TID 03/19/25
sodium phosphates 19 gram-7 gram/118 mL enema 118 ml NM ONCE PRN if dulcolax is ineffective 03/19/25
trazodone 50 mg tablet 25 mg PO HS 03/19/25
insulin NPH isoph U-100 human 100 unit/mL subcutaneous suspension (Humulin N NPH U-100 Insulin (isophane susp)) 5 unit (0.05 mL) SC HS #0 mL 03/20/25
insulin NPH isoph U-100 human 100 unit/mL subcutaneous suspension (Humulin N NPH U-100 Insulin (isophane susp)) 10 unit (0.1 mL) SC DAILY #0 mL 03/20/25
insulin aspart U-100 100 unit/mL (3 mL) subcutaneous pen 3 unit (0.03 mL) SC AC #15 mL 03/20/25
oxycodone-acetaminophen 5 mg-325 mg tablet 1 tab PO Q4HPRN PRN mild pain UNRELIEVED BY APAP #10 tabs 03/20/25
Home Medication Changes
Pending Results: No
Total time spent discharging patient (in min): 42
[2025-03-20] MEDS: PERCOCET 5/325 1 TABLET PO (10:08)
[2025-03-20 10:16] LABS: CEA 5.93 ng/ml
[2025-03-20 11:05] VITALS: BP 122/69
[2025-03-20 11:20] LABS: Glucose - Point of Care 176 mg/dl (70-99)
[2025-03-20] MEDS: NOVOLOG FLEXPEN-LOW RESISTANCE 1 UNITS SC (11:25)
== END 2025-03-20 12:19 | DRG 694 ==
LOC: 2 SOUTH 09:03
PROVIDERS: Nurse Practitioner Adult Health; ADMITTING PHYSICIAN Specialist; ATTENDING PHYSICIAN Internal Medicine; CONSULT PHYSICIAN Internal Medicine; CONSULT PHYSICIAN Internal Medicine Critical Care Medicine; CONSULT PHYSICIAN Internal Medicine Gastroenterology; CONSULT PHYSICIAN Surgery
PROC: 0TC68ZZ Extirpation of Matter from Right Ureter, Via Natural or Artificial Opening Endoscopic (ICD-10-PCS; 2025-03-17)
PROC: 30233N1 Transfusion of Nonautologous Red Blood Cells into Peripheral Vein, Percutaneous Approach (ICD-10-PCS; 2025-03-17)
PROC: 0DBQ8ZX Excision of Anus, Via Natural or Artificial Opening Endoscopic, Diagnostic (ICD-10-PCS; 2025-03-19)
DX: N13.2 Hydronephrosis with renal and ureteral calculous obstruction (principal); C20 Malignant neoplasm of rectum; J96.11 Chronic respiratory failure with hypoxia; F03.93 Unspecified dementia, unspecified severity, with mood disturbance; F03.94 Unspecified dementia, unspecified severity, with anxiety; H20.9 Unspecified iridocyclitis; D50.9 Iron deficiency anemia, unspecified; J84.112 Idiopathic pulmonary fibrosis; J44.9 Chronic obstructive pulmonary disease, unspecified; Z99.81 Dependence on supplemental oxygen; I10 Essential (primary) hypertension; E11.9 Type 2 diabetes mellitus without complications; Z87.891 Personal history of nicotine dependence; Z77.22 Contact with and (suspected) exposure to environmental tobacco smoke (acute) (chronic); K21.9 Gastro-esophageal reflux disease without esophagitis; G43.909 Migraine, unspecified, not intractable, without status migrainosus; F32.A Depression, unspecified; Z88.8 Allergy status to other drugs, medicaments and biological substances; Z88.2 Allergy status to sulfonamides; Z79.82 Long term (current) use of aspirin; Z79.899 Other long term (current) drug therapy; Z79.51 Long term (current) use of inhaled steroids; Z79.4 Long term (current) use of insulin; Z80.0 Family history of malignant neoplasm of digestive organs; Z88.3 Allergy status to other anti-infective agents; I27.20 Pulmonary hypertension, unspecified
CPT/HCPCS: 71046; 71260; 74018; 74177; 76000; 80048; 80053; 82378; 82728; 82805; 82962; 83036; 83540; 83550; 85027; 85045; 85610; 86850; 86900; 86901; 86920; 87070; 88305; 88342; 93005; 94640; J2916; P9016; Q9967

== ENCOUNTER → 2025-04-03 11:38 | Outpatient (REF) | payer OTHER, SELFPAY | LOC: MRI 3T 11:38 | PROVIDERS: ATTENDING PHYSICIAN Surgery; FAMILY PHYSICIAN Student in an Organized Health Care Education/Training Program | DX: C20 Malignant neoplasm of rectum (principal) | CPT/HCPCS: 72197; A9575 ==

== ENCOUNTER 2025-06-03 09:41 | Outpatient (RCR) | payer OTHER, MEDICAID, SELFPAY ==
[2025-06-01 13:48] LABS: Hematocrit 29.2 % (39.0-52.0); Hemoglobin 9.2 g/dL (13.0-18.0); Mean Corp Hgb Conc. 31.5 g/dL (33.0-37.0); Mean Corpuscular Volume 86.4 fL (80.0-94.0); Platelet Count 355 10^3/uL (130-400); Red Cell Dist. Width 16.9 % (11.5-14.5)
[2025-06-01 14:45] LABS: ALT (SGPT) 15 U/L (0-50); AST (SGOT) 24 U/L (17-59); Albumin 3.8 g/dl (3.5-5.0); Alkaline Phosphatase 96 U/L (38-126); Blood Urea Nitrogen 28 mg/dl (9-20); Calcium 9.7 mg/dl (8.4-10.2); Carbon Dioxide 30 mmol/L (22-30); Chloride 96 mmol/L (98-107); Glucose 101 mg/dl (70-99); Potassium 4.9 mmol/L (3.5-5.1); Sodium 133 mmol/L (135-145); Total Protein 6.5 g/dl (6.3-8.2); eGFR > 60.00
[2025-06-03 10:26] VITALS: BP 133/72
[2025-06-03 10:45] VITALS: BP 113/66
[2025-06-03 12:54] VITALS: BP 118/69
== END 2025-06-03 23:59 | disposition home or self-care (01) ==
LOC: OID 09:41
PROVIDERS: ATTENDING PHYSICIAN Internal Medicine Hematology & Oncology; FAMILY PHYSICIAN Student in an Organized Health Care Education/Training Program
DX: C20 Malignant neoplasm of rectum (principal)
CPT/HCPCS: 36415; 36430; 80053; 84443; 85025; 86850; 86900; 86901; 86920; P9016